=== PATIENT | male | born 1940 ===

== ENCOUNTER 2016-10-21 06:10 | Day surgery (SDC) | payer MEDICARE, OTHER ==
[2016-09-24 10:27] VITALS: BMI 21.9
[2016-10-21 06:46] LABS: BASO # 0.02 K/mm3 (0.0-2.0); BASO % 0.2 % (0.0-3.0); EOS # 0.7 (0.0-0.7); EOS % 7.2 % (1.5-5.0); GRAN # 6.48 (1.4-6.5); GRAN % 70.2 % (50.0-68.0); HEMATOCRIT 37.5 % (42.0-52.0); LYMPH # 1.3 (1.2-3.4); LYMPH % 13.5 % (22.0-35.0); MEAN CORPUSCULAR HGB CONC 32.5 g/dl (31.0-37.0); MEAN PLATELET VOLUME 9.7 fl (7.0-11.0); MONO # 0.8 (0.1-0.6); MONO % 8.9 % (1.0-6.0); RED CELL DISTRIBUTION WIDTH 15.3 % (11.5-14.5); WHITE BLOOD COUNT 9.2 10^3/ul (4.5-11.0)
[2016-10-21 06:50] LABS: CALCIUM 9.8 mg/dL (8.4-10.5); POTASSIUM 4.9 mmol/L (3.6-5.0)
[2016-10-21] MEDS ORDERED: Lidocaine 1% Inj (20ml) ONE (07:08)
[2016-10-21] MEDS ORDERED: Bupivacaine 0.5% Inj(30mL) ONE (07:08)
[2016-10-21 07:11] LABS: INR 0.99 (0.93-1.08); PARTIAL THROMBOPLASTIN TIME 27.3 Seconds (23.7-30.8)
[2016-10-21] MEDS ORDERED: Propofol 10 mg/ml Inj (20 ML) ONE (08:02)
[2016-10-21] MEDS ORDERED: Midazolam 2 MG/2 ML VIAL ONE (08:02)
[2016-10-21] MEDS ORDERED: ePHEDrine 50 mg/ml Inj ONE ×2 (08:26→09:52)
--- NOTE | 2016-10-21 10:20 | PCM.SURG1 ---
<Joshua Zarate - Last Filed: 10/21/16 10:18> Surgeon's Initial Post Op Note - Surgeon's Notes Surgeon: Dr. Miller Chief Order Dispatcher: Dr. Zarate PGY3, Student Doctor Carrie Type of Anesthesia: General LMA, Local Pre-Operative Diagnosis: ESRD Operative Findings: see op report Post-Operative Diagnosis: same Operation Performed: left arm arteriovenous fistula Specimen/Specimens Removed: none Estimated Blood Loss: EBL {In ML}: 10 Blood Products Given: N/A Drains Used: No Drains Post-Op Condition: Good Date of Surgery/Procedure: 10/21/16 Time of Surgery/Procedure: 10:19 <Eder Miller - Last Filed: 10/21/16 10:30> Surgeon's Initial Post Op Note - Surgeon's Notes Operation Performed: Left upper arm AV fistula creation by cephalic vein transposition. Left arm venous mapping
[2016-10-21] MEDS ORDERED: HYDROmorphone 0.5 mg/0.5 ml ISec IVP PRN ×2 (10:26→10:28)
[2016-10-21] MEDS ORDERED: Sodium Chloride 0.9% 1,000 ML IV SCH (10:30)
[2016-10-21 11:34] VITALS: PULSE 53
[2016-10-21 12:04] VITALS: BP 110/58; RESP 18; TEMP 98.3; O2SAT 99
--- NOTE | 2016-10-21 12:25 | OP ---
PROCEDURE DATE: 10/21/2016 PREOPERATIVE DIAGNOSIS: End stage renal disease. POSTOPERATIVE DIAGNOSIS: End stage renal disease. PROCEDURES PERFORMED: 1. Left upper arm arteriovenous fistula creation via the cephalic vein transposition to the brachial artery. 2. Left arm venous mapping. SURGEON: Eder Miller MD THREADING MACHINE FEEDER AUTOMATIC: Dr. Zarate. TYPE OF ANESTHESIA: General LMA anesthesia. ANESTHESIA ADMINISTERED BY: Dr. Gonzalez. ESTIMATED BLOOD LOSS: Minimal. SPECIMEN: None. INDICATIONS: The patient is a 75-year-old male with history of end stage renal disease currently on hemodialysis by the right subclavian tunneled catheter. The patient was seen in the office and scheduled for the creation of the AV fistula in order to have a permanent access. DESCRIPTION OF PROCEDURE: The patient was brought to the operating room and placed on operating table in a supine position. The patient was connected to EKG, blood pressure, and pulse oximetry monitors. The patient then underwent LMA anesthesia and was prepped and draped in the usual sterile fashion. First, a standard time-out procedure took place and everybody in the room agreed as to the patient's identity, diagnoses, and procedure to be performed. Using the venous Doppler careful mapping of the cephalic vein starting from the upper portion of the upper arm down to the wrist was performed. All the branches were marked and the sides were measured. The upper arm cephalic vein was about 3-4 mm in size and about 3.5 at the decubital fossa. The vessel progressively got smaller, as it was going down and it was about 2 mm at the wrist. Given the above findings, the side branches were marked starting from the antecubital fossa up. There were multiple small branches located just above the antecubital fossa and the vessel was running quite laterally, therefore, needed to be transposed in order to bring it up to the brachial artery. Once this was done, I then proceeded to surgery by first injecting lidocaine at the line of incision in the antecubital fossa. Carefully, the incision was made with #[id number] and advanced down to subcutaneous tissues. Keeping good hemostasis the cephalic vein was now exposed and carefully dissected out. All the side branches were ligated and once the vessel was freed from the surrounding tissue it was marked for orientation and then mobilized all the way to about mcc through its course in order to be able to bring it to the proximity of the brachial artery. Once this was done, I then proceeded with mobilization of the brachial artery. Carefully elevated it on to vessel loops and once it was freed the patient received 4000 units of heparin intravenously and about 2 minutes after that procedure of cross-clamping the brachial artery making longitudinal arteriotomy and proceed with end to side anastomosis between the transposed cephalic vein and branchial artery. Once the anastomosis was completed forward flow established we have good thrill through the created conduit. The wound was copiously irrigated. There was excellent hemostasis. The wound was then closed using 3-0 Vicryl for the deep dermal layer and 4-0 Monocryl for skin. Sterile Dermabond dressing was applied to the wound. The patient tolerated the procedure well and there were no complications. The patient was awakened and transferred to the recovery room for further observation. Eder Miller MD
== END 2016-10-21 12:20 | disposition home or self-care (01) ==
LOC: SDS 06:10
PROVIDERS: ATTEND General Practice
DX: I13.2 Hypertensive heart and chronic kidney disease with heart failure and with stage 5 chronic kidney disease, or end stage renal disease (principal); N18.6 End stage renal disease; I50.9 Heart failure, unspecified; E11.22 Type 2 diabetes mellitus with diabetic chronic kidney disease; C61 Malignant neoplasm of prostate; Z79.4 Long term (current) use of insulin; Z99.2 Dependence on renal dialysis
CPT/HCPCS: 36415; 36818; 80048; 82948; 85025; 85610; 85730; J0690; J1170; J1644 ×2; J2001; J2250; J2405; J2704; J3010; J7040

== ENCOUNTER 2017-04-29 16:44 | Emergency (ER) | payer MEDICARE, OTHER ==
[2017-04-29 16:45] VITALS: BMI 21.9
[2017-04-29 16:51] VITALS: BP 130/64; PULSE 90; RESP 18; TEMP 97.9; O2SAT 100
--- NOTE | 2017-04-29 17:07 | ED PDOC ---
Arrival/HPI - General Time Seen by Provider: 04/29/17 16:59 Historian: Patient - History of Present Illness Narrative History of Present Illness (Text): 04/29/17 17:02 76yo male with PMHx of hypertension, diabetes and ESRD on dialysis TTHS bib for evaluation s/p trauma. Patient states he lost his balance and fell, while trying to check his weight at a dialysis center post dialysis. States the weight machine wasn't working and he kept pressing it, felt slight dizzy and fell. He notes that he hit his neck on a sink. Denies focal weakness, dizziness , visual changes, neck pain, headache, LOC, back pain, any other complaint. Past Medical History - Provider Review Nursing Documentation Reviewed: Yes - Cardiac Hx Pacemaker: No - Neurological Hx Paralysis: No - Hematological/Oncological Hx Blood Transfusions: No Hx Blood Transfusion Reaction: No - Musculoskeletal/Rheumatological Hx Musculoskeletal Disorders: No - Psychiatric Hx Emotional Abuse: No Hx Physical Abuse: No Hx Substance Use: No - Anesthesia Hx Anesthesia Reactions: No Hx Malignant Hyperthermia: No - Suicidal Assessment Feels Threatened In Home Enviroment: No Family/Social History - Physician Review Nursing Documentation Reviewed: Yes Family/Social History: Unknown Family HX Hx Alcohol Use: Yes ([employer]) Hx Substance Use: No Allergies/Home Meds Allergies/Adverse Reactions: Allergies allopurinol Allergy (Severe, Verified 04/29/17 17:07) RASH Home Medications: Home Meds Medication Instructions Recorded Confirmed Atorvastatin [Lipitor] 20 mg PO QAM 03/31/13 10/21/16 Insulin Detemir [Levemir] 10 units SC HS 03/31/13 10/21/16 Verapamil [Verapamil HCl] 240 mg PO BID 03/31/13 10/21/16 cloNIDine 0.3 mg/24 hr 1 patch TD QWK 03/31/13 10/21/16 [catapres-TTS3 0.3 mg/24 hr] Aspirin [Adult Low Dose Aspirin EC] 81 mg PO DAILY 09/15/16 10/21/16 B Complex W-C No.20/Folic Acid 1 sgl PO QAM 09/15/16 10/21/16 [[place] Caps] Bumetanide [Bumex] 1 mg PO BID 09/15/16 10/21/16 Carvedilol [Coreg] 25 mg PO BID 09/15/16 10/21/16 Insulin Aspart, Recombinant 5 unit SQ WM 09/15/16 10/21/16 [Novolog] Terazosin HCl [Terazosin HCl] 2 mg PO QID 09/15/16 10/21/16 Calcium Acetate [Phoslo] 667 mg PO WM 09/24/16 10/21/16 Ultram 50 mg PO Q6H PRN 10/21/16 10/21/16 Review of Systems - Physician Review All systems were reviewed & negative as marked: Yes - Review of Systems Constitutional: Normal Eyes: Normal ENT: Normal Respiratory: Normal Cardiovascular: Normal Gastrointestinal: Normal Genitourinary Male: Normal Musculoskeletal: Normal, Other (Evaluation s/p trauma) Skin: Normal Neurological: Normal Endocrine: Normal Hemo/Lymphatic: Normal Psychiatric: Normal Physical Exam Vital Signs Reviewed: Yes Vital Signs Temp Pulse Resp BP Pulse Ox 04/29/17 16:50 97.9 F 90 18 130/64 100 Temperature: Afebrile Blood Pressure: Normal Pulse: Regular Respiratory Rate: Normal Appearance: Positive for: Well-Appearing, Non-Toxic, Comfortable Pain Distress: None Mental Status: Positive for: Alert and Oriented X 3 - Systems Exam Head: Present: Atraumatic, Normocephalic Pupils: Present: PERRL Extroacular Muscles: Present: EOMI Conjunctiva: Present: Normal Mouth: Present: Moist Mucous Membranes Neck: Present: Normal Range of Motion. No: MIDLINE TENDERNESS, Paraspinal Tenderness Respiratory/Chest: Present: Clear to Auscultation, Good Air Exchange. No: Respiratory Distress, Accessory Muscle Use Cardiovascular: Present: Regular Rate and Rhythm, Normal S1, S2. No: Murmurs Abdomen: Present: Normal Bowel Sounds. No: Tenderness, Distention, Peritoneal Signs Back: Present: Normal Inspection Upper Extremity: Present: Normal Inspection. No: Cyanosis, Edema Lower Extremity: Present: Normal Inspection. No: Edema Neurological: Present: GCS=15, CN II-XII Intact, Speech Normal Skin: Present: Warm, Dry, Normal Color. No: Rashes Psychiatric: Present: Alert, Oriented x 3, Normal Insight, Normal Concentration Medical Decision Making ED Course and Treatment: 04/29/17 17:55 Pt presented for stated history. he was neurologically stable and denied any pain in ED. He as ambulatory , AAO x3 in ED. He declined Head CT in ED. states he feels fine and want to go home. He expressed understanding of the risk of internal head derangement and still insisted on signing out AMA. He understood that he can return to ED at anytime he changes his time. Advised to f/u with his PMD. - RAD Interpretation Radiology Orders: 04/29/17 17:09 HEAD W/O CONTRAST [CT] Stat Disposition/Present on Arrival - Present on Arrival Any Indicators Present on Arrival: No History of DVT/PE: No History of Uncontrolled Diabetes: No Urinary Catheter: No History of Decub. Ulcer: No - Disposition Have Diagnosis and Disposition been Completed?: No Diagnosis: Head injury Disposition: AGAINST MEDICAL ADVICE Disposition Time: 17:40 Condition: STABLE
== END 2017-04-29 17:37 | disposition left against medical advice (07) ==
LOC: ED 16:44
DX: S09.90XA Unspecified injury of head, initial encounter (principal); W01.0XXA Fall on same level from slipping, tripping and stumbling without subsequent striking against object, initial encounter; I12.0 Hypertensive chronic kidney disease with stage 5 chronic kidney disease or end stage renal disease; N18.6 End stage renal disease; Z99.2 Dependence on renal dialysis; E11.9 Type 2 diabetes mellitus without complications

== ENCOUNTER 2017-10-19 09:28 | Day surgery (SDC) | payer MEDICARE, OTHER ==
[2017-10-18 15:10] VITALS: BMI 21.2
[2017-10-19 10:12] LABS: BASO # 0.02 K/mm3 (0.0-2.0); BASO % 0.2 % (0.0-3.0); EOS # 0.8 (0.0-0.7); EOS % 8.3 % (1.5-5.0); GRAN # 6.68 (1.4-6.5); HEMOGLOBIN 9.2 g/dL (14.0-18.0); LYMPH # 1.4 (1.2-3.4); LYMPH % 15.1 % (22.0-35.0); MEAN CELL VOLUME 92.3 fl (80.0-105.0); MEAN CORPUSCULAR HEMOGLOBIN 29.6 pg (25.0-35.0); MEAN CORPUSCULAR HGB CONC 32.1 g/dl (31.0-37.0); MEAN PLATELET VOLUME 10.2 fl (7.0-11.0); MONO # 0.4 (0.1-0.6); MONO % 4.4 % (1.0-6.0); RBC 3.11 10^6/uL (3.5-6.1); WHITE BLOOD COUNT 9.3 10^3/ul (4.5-11.0)
[2017-10-19 10:17] LABS: INR 0.97; PARTIAL THROMBOPLASTIN TIME 29.8 Seconds (25.1-36.5); PROTHROMBIN TIME 11.1 SECONDS (9.4-12.5)
[2017-10-19] MEDS ORDERED: Lidocaine PF 2% (5 ml) Inj (For Cardiac Arrhy) ONE ×2 (10:23→10:52)
[2017-10-19] MEDS ORDERED: Iodixanol 320 mg/ml 150 ml Bottle IV ONE (10:25)
[2017-10-19 10:34] LABS: CALCIUM 8.9 mg/dL (8.4-10.5)
[2017-10-19] MEDS ORDERED: Nitroglycerin 50mg in D5W 50 MG/250 ML BOTTLE IV ONE (10:52)
[2017-10-19] MEDS ORDERED: Midazolam 2 MG/2 ML VIAL ONE (11:14)
[2017-10-19] MEDS ORDERED: Oxycodone/Acetaminophen 5/325 mg Tab PO PRN (12:00)
[2017-10-19 12:47] VITALS: RESP 18; TEMP 97.9; O2SAT 98
--- NOTE | 2017-10-19 13:27 | VASCULAR ---
PROCEDURE: 1. Left upper extremity AV fistula angiogram 2. Perianastomotic venous angioplasty HISTORY: End-stage renal disease. Malfunctioning AV access PHYSICIAN(S): Ruiz Cobb MD. TECHNIQUE: The relative risks and indications of the procedure were explained to the patient and his and consent obtained. The patient was placed supine on the angiography table and the left arm prepped and draped in usual sterile fashion. Conscious sedation and monitoring provided throughout the procedure by a nurse. Under ultrasound guidance, the left brachial-cephalic fistula was punctured at the anastomosis with a micropuncture set. 5 [place]ian catheter was placed. An overlapping left upper extremity AV fistula angiogram was performed. Pressure was applied to the fistula and reflux of the anastomosis performed. Exchange is made for 6 [place]ian sheath. 0.018 guidewire was placed centrally. The perianastomotic region was dilated with a 6 mm balloon. An improved appearance was noted angiographically with a good thrill The sheath was removed hemostasis obtained with a purse string suture FINDINGS: The anastomosis is patent on ultrasound imaging. The perianastomotic vein is small in caliber, measuring 3-4 mm. The cephalic vein is continuous and normal in appearance. Central veins are patent. There is some mass-effect on the left innominate vein by the ectatic aortic arch. IMPRESSION: 1. Perianastomotic angioplasty with a 6 mm balloon 2. Patent venous outflow. There is some mass effect on the left innominate vein by the ectatic aortic arch, but this was not addressed at this time
[2017-10-19 13:58] VITALS: BP 118/76; PULSE 62
== END 2017-10-19 13:50 | disposition home or self-care (01) ==
LOC: SDSVAS 09:28
PROVIDERS: ATTEND Radiology Vascular & Interventional Radiology
DX: T82.318A Breakdown (mechanical) of other vascular grafts, initial encounter (principal); I12.0 Hypertensive chronic kidney disease with stage 5 chronic kidney disease or end stage renal disease; N18.6 End stage renal disease; Z88.1 Allergy status to other antibiotic agents; Z88.8 Allergy status to other drugs, medicaments and biological substances
CPT/HCPCS: 36415; 36902; 80048; 85025; 85610; 85730; 99152; C1725; C1760; C1769 ×2; C1894; J0360; J1644; J2250; J2405; J3010; Q9967

== ENCOUNTER 2018-04-12 12:03 | Inpatient (IN) | payer MEDICARE, OTHER ==
[2018-04-12 12:05] VITALS: BMI 20.7
--- NOTE | 2018-04-12 12:24 | ED PDOC ---
Arrival/HPI - General Chief Complaint: Weakness/Neurological Deficit Time Seen by Provider: 04/12/18 12:10 Historian: Patient - History of Present Illness Narrative History of Present Illness (Text): 04/12/18 12:21 77 year old male, with past medical history of hypertension, diabetes and ESRD on hemodialysis (Wed/Wed/Wed), presents to the ED for evaluation of chest congestion, shortness of breath, and productive cough since 1 week. Patient informs worsening symptoms since onset developing greenish sputum with cough. Patient additionally informs bilateral lower extremity weakness but denies any numbness/tingling. Patient denies any other associated somatic complaints. Patient denies any fevers, chills, headache, dizziness, chest pain, abdominal pain, nausea, vomiting, diarrhea, back pain, neck pain, or any other complaints. Patient states his last dialysis was Wednesday and did not receive dialysis today. PMD: Dr. Oconnell Time/Duration: 1 week Symptom Onset: Gradual Symptom Course: Unchanged Activities at Onset: Light Context: Home Past Medical History - Provider Review Nursing Documentation Reviewed: Yes - Infectious Disease Hx of Infectious Diseases: None - Cardiac Hx Cardiac Disorders: Yes Hx Hypertension: Yes - Pulmonary Hx Respiratory Disorders: No - Neurological Hx Neurological Disorder: No - HEENT Hx HEENT Disorder: No - Renal Hx Renal Disorder: Yes Hx Dialysis: Yes (//Wed) Type of Dialysis Access: Left Upper Arm AV Shunt - Endocrine/Metabolic Hx Endocrine Disorders: Yes Hx Diabetes Mellitus Type 2: Yes - Hematological/Oncological Hx Blood Disorders: Yes Hx Blood Transfusions: Yes Hx Blood Transfusion Reaction: No - Integumentary Hx Dermatological Disorder: No - Musculoskeletal/Rheumatological Hx Musculoskeletal Disorders: No - Gastrointestinal Hx Gastrointestinal Disorders: No - Genitourinary/Gynecological Hx Genitourinary Disorders: No - Psychiatric Hx Psychophysiologic Disorder: No Hx Substance Use: No - Surgical History Hx Orthopedic Surgery: Yes - Anesthesia Hx Anesthesia Reactions: No Hx Malignant Hyperthermia: No - Suicidal Assessment Feels Threatened In Home Enviroment: No Family/Social History - Physician Review Nursing Documentation Reviewed: Yes Family/Social History: No Known Family HX Smoking Status: Never Smoked Hx Alcohol Use: Yes Hx Substance Use: No Allergies/Home Meds Allergies/Adverse Reactions: Allergies allopurinol Allergy (Severe, Verified 04/12/18 12:12) RASH ciprofloxacin [From Cipro] Allergy (Severe, Verified 04/12/18 12:12) RASH SKIN BREAKS OUT AND PEELS Home Medications: Home Meds Medication Instructions Recorded Confirmed Insulin Detemir [Levemir] 10 units SC HS 03/31/13 10/19/17 cloNIDine 0.3 mg/24 hr 1 patch TD QWK 03/31/13 10/19/17 [catapres-TTS3 0.3 mg/24 hr] Aspirin [Adult Low Dose Aspirin EC] 81 mg PO DAILY 09/15/16 10/19/17 Carvedilol [Coreg] 25 mg PO BID 09/15/16 10/19/17 Insulin Aspart, Recombinant 15 unit SQ ACTID 09/15/16 10/19/17 [Novolog] Atorvastatin [Lipitor] 20 mg PO DAILY 10/18/17 10/19/17 B Complex W-C No.20/Folic Acid 1 mg PO DAILY 10/18/17 10/19/17 [[place] Caps Softgel] Multivitamin/Iron/Folic Acid 1 tab PO DAILY 10/18/17 10/19/17 [Centrum Adults Tablet] Sevelamer Carbonate [Renvela] 800 mg PO TID 10/18/17 10/19/17 Terazosin [Hytrin] 2 mg PO DAILY 10/18/17 10/19/17 Torsemide [Demadex] 50 mg PO DAILY 10/18/17 10/19/17 Verapamil [Verapamil HCl] 40 mg PO BID 10/19/17 10/19/17 Review of Systems - Physician Review All systems were reviewed & negative as marked: Yes - Review of Systems Constitutional: absent: Fevers Respiratory: SOB, Cough, Sputum Cardiovascular: absent: Chest Pain, PAGE Gastrointestinal: absent: Abdominal Pain, Diarrhea, Nausea, Vomiting Genitourinary Male: absent: Dysuria, Urinary Output Changes Musculoskeletal: absent: Back Pain, Neck Pain Skin: absent: Rash Neurological: absent: Headache, Dizziness Psychiatric: absent: Anxiety Physical Exam - Physical Exam Narrative Physical Exam (Text): 04/12/18 12:24 Gen: VS reviewed, alert, well developed, well nourished, nontoxic, mild distress. ENT: normal pharynx. Eye: EOMI, PERRL. Neck: JVD, supple, no adenopathy. CV: regular rate, regular rhythm, no rubs, no murmur, no gallops, S1, S2, pulses equal and strong. Pulm: no distress, rhonchi bilaterally full lung carrion, mildly tachypneic, no accessory muscle use Abd: soft, nontender, no guarding, no rebound, no rigidity, normal bowel sounds. Ext: no edema. Positive thrill left upper extremity. Skin: good color, no rash, no cyanosis. Psych: responds appropriately to questions, normal affect. Neuro: oriented x 3, CN2-12 intact grossly, motor intact, sensation intact. Vital Signs Reviewed: Yes Vital Signs Temp Pulse Resp BP Pulse Ox 04/12/18 12:06 98.0 F 81 16 191/104 H 90 L Temperature: Afebrile Blood Pressure: Hypertensive Pulse: Regular Respiratory Rate: Normal Appearance: Positive for: Well-Appearing, Non-Toxic, Comfortable Pain Distress: Mild Mental Status: Positive for: Alert and Oriented X 3 Medical Decision Making ED Course and Treatment: 04/12/18 12:19 Impression: 77 year old male presents to the ED for evaluation of chest congestion, shortness of breath and productive cough. Plan: -- VBG -- EKG -- Labs -- Chest X-ray -- Blood Culture -- Reassess and disposition Prior Visits: Notes and results from previous visits were reviewed. Progress Notes: 04/12/18 13:23 case discussed with carlyn dan covering with dr. oconnell, accepts admission, patient to be admitted for hcp, iv abx, hyperkalemia, will likely require HD today. there is no respiratory distress or sig hypoxemia to warrant icu at this time. will admit to tele. 04/12/18 13:[address] oconnell, defers admit to ventilation worker, error from previous discussion with Nickie. 04/12/18 13:[address] bravo to the hospitalist service. - RAD Interpretation Narrative RAD Interpretations (Text): 04/12/18 13:37 IMPRESSION: Bilateral infiltrates, right greater than left. Possible bilateral pneumonia versus pulmonary edema.. Follow-up advised. Radiology Orders: 04/12/18 12:19 CHEST PORTABLE [RAD] Stat Skin Fitter: Radiologist - EKG Interpretation EKG Interpretation (Text): 04/12/18 12:58 1224: sinus rhythm at 81 bpm, first degree av block, nonspecific intraventricular conduction delay, nml axis, prolonged QT Interpreted by ED Physician: Yes - Scribe Statement The provider has reviewed the documentation as recorded by the Scribe Carlos Woods. All medical record entries made by the Scribe were at my direction and personally dictated by me. I have reviewed the chart and agree that the record accurately reflects my personal performance of the history, physical exam, medical decision making, and the department course for this patient. I have also personally directed, reviewed, and agree with the discharge instructions and disposition. Disposition/Present on Arrival - Present on Arrival Any Indicators Present on Arrival: No History of DVT/PE: No History of Uncontrolled Diabetes: No Urinary Catheter: No History of Decub. Ulcer: No History Surgical Site Infection Following: None - Disposition Have Diagnosis and Disposition been Completed?: Yes Diagnosis: Pneumonia Disposition: HOSPITALIZED Disposition Time: 13:24 Patient Plan: Admission Patient Problems: Current Active Problems Problem Status Onset Pneumonia Acute Condition: GUARDED Forms: [employer] (Iranian)
[2018-04-12 12:42] LABS: BASO # 0.01 K/mm3 (0.0-2.0); BASO % 0.1 % (0.0-3.0); EOS % 0.1 % (1.5-5.0); HEMOGLOBIN 10.6 g/dL (14.0-18.0); LYMPH # 1.1 (1.2-3.4); LYMPH % 9.3 % (22.0-35.0); MEAN CELL VOLUME 91.2 fl (80.0-105.0); MEAN CORPUSCULAR HEMOGLOBIN 28.3 pg (25.0-35.0); MEAN CORPUSCULAR HGB CONC 31.1 g/dl (31.0-37.0); MEAN PLATELET VOLUME 10.3 fl (7.0-11.0); MONO # 0.6 (0.1-0.6); MONO % 5.2 % (1.0-6.0); RBC 3.74 10^6/uL (3.5-6.1); RED CELL DISTRIBUTION WIDTH 15.2 % (11.5-14.5); WHITE BLOOD COUNT 12.2 10^3/uL (4.5-11.0)
[2018-04-12 12:49] LABS: VENOUS BLOOD GAS BASE EXCESS -4.5 mmol/L (0.0-2.0); VENOUS BLOOD GAS PO2 69 mm/Hg (30-55); VENOUS BLOOD PH 7.36 (7.32-7.43)
[2018-04-12 12:59] LABS: ALB/GLOB RATIO 1.4 (1.1-1.8); ALBUMIN 4.4 g/dL (3.0-4.8); CALCIUM 8.6 mg/dL (8.4-10.5); TROPONIN I 0.05 ng/mL
[2018-04-12] MEDS ORDERED: Insulin Regular 1 UNITS/0.01 ML ML IVP STA (13:02)
[2018-04-12] MEDS ORDERED: Vancomycin 500 mg Inj IVPB STA (13:12)
[2018-04-12] MEDS ORDERED: Cefepime 1gm in NS 100ml 1 GM/100 ML BAG IVPB ONE (13:13)
[2018-04-12] MEDS ORDERED: Calcium Gluconate in NS 1 GM/50 ML BAG IV ONE (13:15)
[2018-04-12] MEDS ORDERED: Vancomycin 1gm in NS 250ml 1 GM/250 ML BAG IVPB STA (13:20)
--- NOTE | 2018-04-12 13:33 | RAD ---
Date of service: 04/12/2018 HISTORY: dyspnea, CHF COMPARISON: 09/15/2016 FINDINGS: LUNGS: Extensive right basilar opacity. Possible pneumonia. Patchy abnormal opacity mid and lower left lung. Follow-up advised. PLEURA: No significant pleural effusion identified, no pneumothorax apparent. CARDIOVASCULAR: There is atherosclerotic calcification of the thoracic aortic arch. Normal cardiac size. No pulmonary vascular congestion. OSSEOUS STRUCTURES: No significant abnormalities. VISUALIZED UPPER ABDOMEN: Normal. OTHER FINDINGS: None. IMPRESSION: Bilateral infiltrates, right greater than left. Possible bilateral pneumonia versus pulmonary edema.. Follow-up advised.
[2018-04-12] MEDS ORDERED: Insulin Regular 100 UNITS in Sodium Chloride 0.9% 99 ML IV PRN (14:26)
--- NOTE | 2018-04-12 14:36 | CP.PCM.CON ---
<VikasKavin - Last Filed: 04/12/18 15:46> History of Present Illness - History of Present Illness History of Present Illness: Nephrology consult note: Vikas PGY - 2 Reason for consult: ESRD on HD, needs HD today 77 M with pertinent history of ESRD on HD (//Wed), DM2 (last A1c 7.9%), and HTN [place] [facility] [place] with a complaint of worsening chest congestion and cough productive of yellow sputum for the past week, with cough and congestion worse when he is lying down. The dyspnea is worse with exertion and improves with rest. He also complains of worsening b/l leg cramping and had an episode of weakness on his way to dialysis this AM. Per the , she was giving the patient lots of fluids including water and tea for his cough. His last HD was on Wednesday. Review of Systems: 12 point ROS obtained and negative except as per HPI Surgical Hx: AVF placement; Radiation for prostate CA Medical Hx: ESRD (//Wed dialysis), DM2 (last A1c 7.9%), HTN, and prostate CA (s/p radiation) Allergies: Allopurinol, Ciprofloxacin Social Hx: +Tobacco, quit in the 70s. +Social alcohol in past. Denies illicits; lives with , +IADL's Home meds: Clonidine .3 qwk; Verapamil 40 BID; Torsemide 50 qD; Renvela 800 TID; Levemir 10 HS; Aspart 15 ACTID, Coreg 25 BID, Lipitor 20, ASA 81 Family Hx: HTN PMD: Mughni Past Patient History - Infectious Disease Hx of Infectious Diseases: None - Past Social History Smoking Status: Never Smoked - CARDIAC Hx Cardiac Disorders: Yes Hx Hypertension: Yes - PULMONARY Hx Respiratory Disorders: No - NEUROLOGICAL Hx Neurological Disorder: No - HEENT Hx HEENT Problems: No - RENAL Hx Chronic Kidney Disease: Yes Hx Dialysis: Yes (//Wed) Type of Dialysis Access: Left Upper Arm AV Shunt - ENDOCRINE/METABOLIC Hx Endocrine Disorders: Yes Hx Diabetes Mellitus Type 2: Yes - HEMATOLOGICAL/ONCOLOGICAL Hx Blood Disorders: Yes Hx Blood Transfusions: Yes Hx Blood Transfusion Reaction: No - INTEGUMENTARY Hx Dermatological Problems: No - MUSCULOSKELETAL/RHEUMATOLOGICAL Hx Musculoskeletal Disorders: No - GASTROINTESTINAL Hx Gastrointestinal Disorders: No - GENITOURINARY/GYNECOLOGICAL Hx Genitourinary Disorders: No - PSYCHIATRIC Hx Psychophysiologic Disorder: No Hx Substance Use: No - SURGICAL HISTORY Hx Orthopedic Surgery: Yes - ANESTHESIA Hx Anesthesia Reactions: No Hx Malignant Hyperthermia: No Meds Allergies/Adverse Reactions: Allergies Allergy/AdvReac Type Severity Reaction Status Date / Time allopurinol Allergy Severe RASH Verified 04/12/18 20:00 ciprofloxacin [From Cipro] Allergy Severe RASH Verified 04/12/18 20:00 - Medications Medications: Current Medications Vancomycin HCl (Vancomycin 1gm) 1 gm in 250 mls @ 167 mls/hr IVPB STAT STA Stop: 04/12/18 14:49 Last Admin: 04/12/18 13:51 Dose: 167 mls/hr Physical Exam - Constitutional Appears: Well, Non-toxic - Head Exam Head Exam: ATRAUMATIC, NORMAL INSPECTION, NORMOCEPHALIC - Eye Exam Eye Exam: EOMI, Normal appearance, PERRL Pupil Exam: NORMAL ACCOMODATION, PERRL - ENT Exam ENT Exam: Mucous Membranes Moist, Normal Exam - Neck Exam Neck exam: Positive for: Normal Inspection - Respiratory Exam Respiratory Exam: Rales (Bilateral rales), NORMAL BREATHING PATTERN. absent: Accessory Muscle Use, Chest Wall Tenderness, Respiratory Distress - Cardiovascular Exam Cardiovascular Exam: REGULAR RHYTHM - GI/Abdominal Exam GI & Abdominal Exam: Normal Bowel Sounds, Soft. absent: Tenderness - Extremities Exam Additional comments: b/l LE 2+ pitting edema - Back Exam Back exam: NORMAL INSPECTION - Neurological Exam Neurological exam: Alert, CN II-XII Intact, Normal Gait, Oriented x3, Reflexes Normal - Psychiatric Exam Psychiatric exam: Normal Affect, Normal Mood - Skin Skin Exam: Dry, Intact, Normal Color, Warm Results - Vital Signs Recent Vital Signs: Last Vital Signs Temp 98.0 F 04/12/18 12:06 Pulse 81 04/12/18 12:06 Resp 16 04/12/18 12:06 BP 191/104 H 04/12/18 12:06 Pulse Ox 90 L 04/12/18 12:06 - Labs Result Diagrams: 04/12/18 12:00 04/12/18 12:00 Labs: Laboratory Results - last 24 hr 04/12/18 04/12/18 04/12/18 12:00 12:00 12:30 WBC 12.2 H RBC 3.74 Hgb 10.6 L Hct 34.1 L MCV 91.2 MCH 28.3 MCHC 31.1 RDW 15.2 H Plt Count 195 MPV 10.3 Neut % (Auto) 85.3 H Lymph % (Auto) 9.3 L [place] % (Auto) 5.2 Eos % (Auto) 0.1 L Baso % (Auto) 0.1 Lymph # (Auto) 1.1 L [place] # (Auto) 0.6 Eos # (Auto) 0.0 Baso # (Auto) 0.01 Absolute Neuts (auto) 10.41 H pO2 69 H VBG pH 7.36 VBG pCO2 36.0 L VBG HCO3 20.3 L VBG Total CO2 21.4 L VBG Base Excess -4.5 L VBG Potassium 6.2 H* Glucose 485 H* Lactate 5.4 H* FiO2 21.0 Crit Value Called To barry Alves Crit Value Called By [facility] utility service worker Blood Gas Notified Time 1248 Sodium 131 L 129.0 L Potassium 6.2 H* D Chloride 91 L 93.0 L Carbon Dioxide 20 L Anion Gap 27 H BUN 83 H Creatinine 10.0 H* Est GFR ( Amer) 6 Est GFR (Non-Af Amer) 5 Random Glucose 441 H* D Calcium 8.6 Phosphorus 6.6 H Magnesium 2.8 H Total Bilirubin 0.4 AST 144 H ALT 171 H Alkaline Phosphatase 145 H Troponin I 0.05 Total Protein 7.6 Albumin 4.4 Globulin 3.2 Albumin/Globulin Ratio 1.4 Venous Blood Potassium 6.2 H* Assessment & Plan - Assessment and Plan (Free Text) Assessment: 77 M with pertinent history of ESRD on HD (/), DM2 (last A1c 7.9%), and HTN [place] [facility] [place] with a complaint of worsening chest congestion and cough productive of yellow sputum for the past week; nephro consulted for HD, today is his regular day. Plan On exam, patient has bilateral lower extremity edema. Lung exam significant for bilateral crackles. Labs show leukocytosis of 12.2, anion gap of 20 and hyperglycemia of > 400, and ABG reveals HCO3 of 20, CO2 of 36 (indicating metabo lic acidosis with adequate compensation according to winter's formula), lactic acidosis of 5.4 and normal pH. On CXR, patient has bilateral pulmonary infiltrates. Bilateral pulmonary effusion/infiltrate - HD today - Continue with Torsemide - Vanc/Cefepime Chronic Compensated HAGMA - Continue with HD - Monitor lactic acidosis Hyperglycemia - RISS medium with ACHS FS - Continue to monitor ESRD on HD - Continue with Renvela, Sensipar, [place] caps - Continue with Torsemide 50 HTN - Continue with Coreg, Terazosin, Clonidine, IIDM 2 - RISS medium - FS ACHS <Elio Oconnell - Last Filed: 04/13/18 06:23> Meds - Medications Medications: Current Medications Acetaminophen (Tylenol 325mg Tab) 650 mg PO Q6H PRN PRN Reason: Pain, moderate (4-7) Aspirin (Ecotrin) 81 mg PO DAILY [facility] Atorvastatin Calcium (Lipitor) 20 mg PO DAILY [facility] Carvedilol (Coreg) 25 mg PO BID [facility] Last Admin: 04/12/18 22:17 Dose: 25 mg Cinacalcet (Sensipar) 60 mg PO BID [facility] Last Admin: 04/12/18 22:17 Dose: 60 mg Clonidine HCl (Catapres-Tts3 0.3 Mg/24 Hr) 1 patch TD Q7D@1000 [facility] Last Admin: 04/12/18 22:39 Dose: 1 patch Heparin Sodium (Porcine) (Heparin) 5,000 units SC Q8 [facility]; Protocol Last Admin: 04/13/18 05:30 Dose: 5,000 units Hydralazine HCl (Apresoline) 10 mg IVP Q6H PRN PRN Reason: Systolic Blood Pressure Insulin Detemir (Levemir) 8 unit SC HS [facility] Last Admin: 04/12/18 22:40 Dose: 8 units Insulin Human Lispro (Humalog Med) 0 units SC [facility]; Protocol Last Admin: 04/12/18 21:35 Dose: Not Given Losartan Potassium (Cozaar) 100 mg PO DAILY [facility] Last Admin: 04/12/18 22:16 Dose: 100 mg Terazosin [Hytrin] 4 (Mg (Home Med)) 4 mg PO BID [facility] Pantoprazole Sodium (Protonix Ec Tab) 40 mg PO 0600 [facility] Last Admin: 04/13/18 05:31 Dose: 40 mg Sevelamer HCl (Renagel) 800 mg PO [facility] Last Admin: 04/12/18 22:17 Dose: 800 mg Vitamin B Complex/Vit C/Folic Acid (Nephro-Pamela) 1 tab PO DAILY [facility] Results - Vital Signs Recent Vital Signs: Last Vital Signs Temp 98.6 F 04/13/18 05:45 Pulse 84 04/13/18 05:45 Resp 20 04/13/18 05:45 BP 139/80 04/13/18 05:45 Pulse Ox 98 04/13/18 05:45 - Labs Result Diagrams: 04/12/18 12:00 04/12/18 12:00 Labs: Laboratory Results - last 24 hr 04/12/18 04/12/18 04/12/18 12:00 12:00 12:30 WBC 12.2 H RBC 3.74 Hgb 10.6 L Hct 34.1 L MCV 91.2 MCH 28.3 MCHC 31.1 RDW 15.2 H Plt Count 195 MPV 10.3 Neut % (Auto) 85.3 H Lymph % (Auto) 9.3 L [place] % (Auto) 5.2 Eos % (Auto) 0.1 L Baso % (Auto) 0.1 Lymph # (Auto) 1.1 L [place] # (Auto) 0.6 Eos # (Auto) 0.0 Baso # (Auto) 0.01 Absolute Neuts (auto) 10.41 H pO2 69 H VBG pH 7.36 VBG pCO2 36.0 L VBG HCO3 20.3 L VBG Total CO2 21.4 L VBG O2 Sat (Calc) TEST NOT PERFORMED VBG Base Excess -4.5 L VBG Potassium 6.2 H* Glucose 485 H* Lactate 5.4 H* FiO2 21.0 Crit Value Called To barry Alves Crit Value Called By [facility] utility service worker Blood Gas Notified Time 1248 Sodium 131 L 129.0 L Potassium 6.2 H* D Chloride 91 L 93.0 L Carbon Dioxide 20 L Anion Gap 27 H BUN 83 H Creatinine 10.0 H* Est GFR ( Amer) 6 Est GFR (Non-Af Amer) 5 POC Glucose (mg/dL) Random Glucose 441 H* D Calcium 8.6 Phosphorus 6.6 H Magnesium 2.8 H Total Bilirubin 0.4 AST 144 H ALT 171 H Alkaline Phosphatase 145 H Troponin I 0.05 Total Protein 7.6 Albumin 4.4 Globulin 3.2 Albumin/Globulin Ratio 1.4 Procalcitonin Venous Blood Potassium 6.2 H* 04/12/18 04/12/18 04/12/18 15:20 19:20 21:09 WBC RBC Hgb Hct MCV MCH MCHC RDW Plt Count MPV Neut % (Auto) Lymph % (Auto) [place] % (Auto) Eos % (Auto) Baso % (Auto) Lymph # (Auto) [place] # (Auto) Eos # (Auto) Baso # (Auto) Absolute Neuts (auto) pO2 29 L VBG pH 7.45 H VBG pCO2 42.0 VBG HCO3 29.2 H VBG Total CO2 30.5 H VBG O2 Sat (Calc) 62.5 VBG Base Excess 4.7 H VBG Potassium 4.7 Glucose 179 H Lactate 2.5 H FiO2 21.0 Crit Value Called To Britt curtis Crit Value Called By Atc Blood Gas Notified Time 1939 Sodium 135.0 Potassium Chloride 94.0 L Carbon Dioxide Anion Gap BUN Creatinine Est GFR ( Amer) Est GFR (Non-Af Amer) POC Glucose (mg/dL) 228 H Random Glucose Calcium Phosphorus Magnesium Total Bilirubin AST ALT Alkaline Phosphatase Troponin I Total Protein Albumin Globulin Albumin/Globulin Ratio Procalcitonin 3.63 H Venous Blood Potassium 4.7 Attending/Attestation - Attestation I have personally seen and examined this patient.: Yes I have fully participated in the care of the patient.: Yes I have reviewed all pertinent clinical information: Yes Notes (Text): Patient seen and examined; I agree with the resident's note as above with the following additions/edits: 77 yo M w/ pmh of htn, dm, and ESRD on HD (TTS, at [facility], under our o utpatient service), presented for routine HD treatment but found to be very weak and had [employer] called prior to initiating treatment; reports weakness since past 2 days, with associated cough and shortness of breath, worse today; also with leg cramps; denies any GI losses; Found to be severely hypertensive with SBP ~200 but didn't take any of his anti- htn agents today and typically has SBP readings in 180's prior to HD; CXR reviewed, has possible bilateral infiltrates although no definite pulmonary vascular congestion; profound lactic acidosis suggestive of sepsis but hypoperfusion unlikely with patient being hypertensive as above; high lactate and renal failure accounts for moderate increased anion gap metabolic acidosis; moderate hyperkalemia, higher than expected for patient on chronic HD; Patient dialyzed today with 3L UF, BP still high just after treatment but with improved respiratory status; Anemia of CKD with Hgb at goal, with continue with long acting EPO as outpatient; CKD mineral bone disorder with elevated phos; continue with sevelamer 3 tabs with meals; -Restarting all home BP meds; -Agree with empiric broad spectrum antibiotics for PNA; re-dosing vanco 500 mg after HD this evening; dose other antibiotics for HD; -Restarting home dose of levemir 8 u qhs; -Obtaining echo to assess LV function (previously normal);
--- NOTE | 2018-04-12 14:49 | CP.PCM.HP ---
<Luke Guzmán - Last Filed: 04/12/18 15:48> History of Present Illness - History of Present Illness History of Present Illness: Luke Guzmán DO, PGY-1 Hospitalist Admission History and Physical for Dr. Giancarlo Strickland CC: SOB, b/l leg weakness HPI: Kevin is a pleasant 77 year old male with PMH of ESRD (T/Th/Sat dialysis), DM2 (last A1c 7.9%), HTN, and prostate CA (s/p radiation) who presented to ED this AM with a complaint of worsening chest congestion and cough productive of y ellow sputum for the past week. Over the past day he has also developed worsening SOB. He states that the cough and congestion feel worse when he is lying down. The dyspnea is worse with exertion and improves with rest. He also complains of worsening b/l leg cramping and had an episode of weakness on his way to dialysis this AM. His was unable to assist him getting to dialysis and he had to sit down in the snow, prompting his evaluation in ED. Patient was seen and examined in inpatient dialysis unit. Currently, he states his SOB is improving but he has not attempted to move again. He denies fever, CP, nausea/vomiting/abdominal pain, sensory changes, changes in vision, DALY, or urinary complaints. PMD: Mughni Past Medical Hx: ESRD (T/Th/Sat dialysis), DM2 (last A1c 7.9%), HTN, and pros smith CA (s/p radiation) Past Surgical Hx: AV fistula placement for dialysis Allergies: allopurinol, ciprofloxacin Home medications: Cinacalcet 60 mg BID, Lipitor 20 mg daily, ASA 81 mg daily, Levemir 8 u HS, Novolog 5 u AC, Coreg 25 mg BID, B-complex 1 mg daily, Terazosin 4 mg BID, Sevelamer 800 mg TID w/meals, Torsemide 50 mg BID, Clonidine 0.3 mg/24hr TD patch weekly Family Hx: mother and father both had HTN Social Hx: Admits to prior ciagrette smoking for 5 years but quit in the 70s. Reports prior social alcohol use but has not drunk for > 5 years. Denies other illicit drug use. Currently lives with his and is normally ambulatory and independent with ADLs. Pharmacy: [facility] in [place] Present on Admission - Present on Admission Any Indicators Present on Admission: No History of DVT/PE: No History of Uncontrolled Diabetes: No Urinary Catheter: No Decubitus Ulcer Present: No Review of Systems - Constitutional Constitutional: Chills. absent: Fever, Headache, Night Sweats - EENT Eyes: absent: Change in Vision - Cardiovascular Cardiovascular: Dyspnea on Exertion. absent: Chest Pain, Chest Pain with Activity, Diaphoresis, Pain Radiating to Arm/Neck/Jaw, Lightheadedness, Palpitations, Syncope - Respiratory Respiratory: Cough, Dyspnea, Dyspnea on Exertion, Chest Congestion, Pain with Coughing - Gastrointestinal Gastrointestinal: absent: Abdominal Pain, Nausea, Vomiting - Genitourinary Genitourinary: absent: Change in Urinary Stream, Dysuria - Neurological Neurological: absent: Headaches Past Patient History - Infectious Disease Hx of Infectious Diseases: None - Past Social History Smoking Status: Never Smoked - CARDIAC Hx Cardiac Disorders: Yes Hx Hypertension: Yes - PULMONARY Hx Respiratory Disorders: No - NEUROLOGICAL Hx Neurological Disorder: No - HEENT Hx HEENT Problems: No - RENAL Hx Chronic Kidney Disease: Yes Hx Dialysis: Yes (//Wed) Type of Dialysis Access: Left Upper Arm AV Shunt - ENDOCRINE/METABOLIC Hx Endocrine Disorders: Yes Hx Diabetes Mellitus Type 2: Yes - HEMATOLOGICAL/ONCOLOGICAL Hx Blood Disorders: Yes Hx Blood Transfusions: Yes Hx Blood Transfusion Reaction: No - INTEGUMENTARY Hx Dermatological Problems: No - MUSCULOSKELETAL/RHEUMATOLOGICAL Hx Musculoskeletal Disorders: No - GASTROINTESTINAL Hx Gastrointestinal Disorders: No - GENITOURINARY/GYNECOLOGICAL Hx Genitourinary Disorders: No - PSYCHIATRIC Hx Psychophysiologic Disorder: No Hx Substance Use: No - SURGICAL HISTORY Hx Orthopedic Surgery: Yes - ANESTHESIA Hx Anesthesia Reactions: No Hx Malignant Hyperthermia: No Meds Allergies/Adverse Reactions: Allergies Allergy/AdvReac Type Severity Reaction Status Date / Time allopurinol Allergy Severe RASH Verified 04/12/18 12:12 ciprofloxacin [From Cipro] Allergy Severe RASH Verified 04/12/18 12:12 Physical Exam - Constitutional Appears: Non-toxic, No Acute Distress - Head Exam Head Exam: ATRAUMATIC, NORMOCEPHALIC - Eye Exam Eye Exam: EOMI, PERRL Pupil Exam: PERRL - ENT Exam ENT Exam: Mucous Membranes Moist, Normal Oropharynx - Neck Exam Neck exam: Positive for: Full Rom, Normal Inspection - Respiratory Exam Respiratory Exam: Rales (b/l crackles loudest at bases), Rhonchi (b/l coarse breath sounds diffusely). absent: Accessory Muscle Use, Chest Wall Tenderness, Wheezes, Respiratory Distress - Cardiovascular Exam Cardiovascular Exam: REGULAR RHYTHM, RRR, +S1, +S2. absent: Gallop, Rubs, Systolic Murmur - GI/Abdominal Exam GI & Abdominal Exam: Normal Bowel Sounds, Soft. absent: Guarding, Tenderness - Extremities Exam Extremities exam: Positive for: full ROM, pedal pulses present. Negative for: calf tenderness, pedal edema - Back Exam Back exam: FULL ROM, NORMAL INSPECTION - Neurological Exam Neurological exam: Alert, Oriented x3 - Psychiatric Exam Psychiatric exam: Normal Affect, Normal Mood - Skin Skin Exam: Dry, Intact, Warm Results - Vital Signs Recent Vital Signs: Last Vital Signs Temp 98.0 F 04/12/18 12:06 Pulse 81 04/12/18 12:06 Resp 16 04/12/18 12:06 BP 191/104 H 04/12/18 12:06 Pulse Ox 90 L 04/12/18 12:06 - Labs Result Diagrams: 04/12/18 12:00 04/12/18 12:00 Labs: Laboratory Results - last 24 hr 04/12/18 04/12/18 04/12/18 12:00 12:00 12:30 WBC 12.2 H RBC 3.74 Hgb 10.6 L Hct 34.1 L MCV 91.2 MCH 28.3 MCHC 31.1 RDW 15.2 H Plt Count 195 MPV 10.3 Neut % (Auto) 85.3 H Lymph % (Auto) 9.3 L [place] % (Auto) 5.2 Eos % (Auto) 0.1 L Baso % (Auto) 0.1 Lymph # (Auto) 1.1 L [place] # (Auto) 0.6 Eos # (Auto) 0.0 Baso # (Auto) 0.01 Absolute Neuts (auto) 10.41 H pO2 69 H VBG pH 7.36 VBG pCO2 36.0 L VBG HCO3 20.3 L VBG Total CO2 21.4 L VBG Base Excess -4.5 L VBG Potassium 6.2 H* Glucose 485 H* Lactate 5.4 H* FiO2 21.0 Crit Value Called To barry Alves Crit Value Called By [facility] Blood Gas Notified Time 1248 Sodium 131 L 129.0 L Potassium 6.2 H* D Chloride 91 L 93.0 L Carbon Dioxide 20 L Anion Gap 27 H BUN 83 H Creatinine 10.0 H* Est GFR ( Amer) 6 Est GFR (Non-Af Amer) 5 Random Glucose 441 H* D Calcium 8.6 Phosphorus 6.6 H Magnesium 2.8 H Total Bilirubin 0.4 AST 144 H ALT 171 H Alkaline Phosphatase 145 H Troponin I 0.05 Total Protein 7.6 Albumin 4.4 Globulin 3.2 Albumin/Globulin Ratio 1.4 Venous Blood Potassium 6.2 H* Assessment & Plan - Assessment and Plan (Free Text) Assessment: 77 yo M with PMH of ESRD (T/Th/Sat dialysis), DM2 (last A1c 7.9%), HTN, and prostate CA (s/p radiation) presents with worsening chest congestion, cough, SOB found to have b/l pulmonary edema on CXR. Patient also had an episode of weakness prior to dialysis in which he needed to sit immediately due to leg cramping. Plan: Dyspnea Suspect most likely 2/2 volume overload vs occult PNA B/l pulmonary edema seen on CXR in ED Patient admits to increased fluid intake yesterday since his believes he was having a URI Patient currently receiving dialysis Repeat CXR after dialysis to monitor for improvement Will continue antibiotics if CXR shows persistent infiltrates Received one time doses of vanc/cefepime in ED PT evaluate and treat Hyperkalemia/Uremia Most likely 2/2 inadequate dialysis ESRD most likely 2/2 diabetic nephropathy Patient currently receiving dialysis Recheck in AM Nephrology following, all recs appreciated HTN Patient's BP has remained elevated since admission Restart home clonidine patch and Coreg Monitor closely Consider adding PRN hydralazine if remaining elevated DM2 Last A1c 7.9% ISS while admitted Will restart home lantus if remaining hyperglycemic Normocytic anemia Most likely 2/2 anemia of chronic renal disease Stable, will continue to monitor DVT/GI PPX: SC heparin/protonix Full Code HHD Monitor on telemetry Patient seen, examined, and plan discussed with my attending Dr. Giancarlo Guzmán D.O. IM Resident PGY-1 Pager: [phone] <Lela Strickland R - Last Filed: 04/12/18 17:21> Results - Vital Signs Recent Vital Signs: Last Vital Signs Temp 98.0 F 04/12/18 12:06 Pulse 81 04/12/18 12:06 Resp 16 04/12/18 12:06 BP 191/104 H 04/12/18 12:06 Pulse Ox 90 L 04/12/18 12:06 - Labs Result Diagrams: 04/12/18 12:00 04/12/18 12:00 Labs: Laboratory Results - last 24 hr 04/12/18 04/12/18 04/12/18 12:00 12:00 12:30 WBC 12.2 H RBC 3.74 Hgb 10.6 L Hct 34.1 L MCV 91.2 MCH 28.3 MCHC 31.1 RDW 15.2 H Plt Count 195 MPV 10.3 Neut % (Auto) 85.3 H Lymph % (Auto) 9.3 L [place] % (Auto) 5.2 Eos % (Auto) 0.1 L Baso % (Auto) 0.1 Lymph # (Auto) 1.1 L [place] # (Auto) 0.6 Eos # (Auto) 0.0 Baso # (Auto) 0.01 Absolute Neuts (auto) 10.41 H pO2 69 H VBG pH 7.36 VBG pCO2 36.0 L VBG HCO3 20.3 L VBG Total CO2 21.4 L VBG Base Excess -4.5 L VBG Potassium 6.2 H* Glucose 485 H* Lactate 5.4 H* FiO2 21.0 Crit Value Called To barry Alves Crit Value Called By [facility] director telecommunications Blood Gas Notified Time 1248 Sodium 131 L 129.0 L Potassium 6.2 H* D Chloride 91 L 93.0 L Carbon Dioxide 20 L Anion Gap 27 H BUN 83 H Creatinine 10.0 H* Est GFR ( Amer) 6 Est GFR (Non-Af Amer) 5 Random Glucose 441 H* D Calcium 8.6 Phosphorus 6.6 H Magnesium 2.8 H Total Bilirubin 0.4 AST 144 H ALT 171 H Alkaline Phosphatase 145 H Troponin I 0.05 Total Protein 7.6 Albumin 4.4 Globulin 3.2 Albumin/Globulin Ratio 1.4 Venous Blood Potassium 6.2 H* Attending/Attestation - Attestation I have personally seen and examined this patient.: Yes I have fully participated in the care of the patient.: Yes I have reviewed all pertinent clinical information: Yes Notes (Text): Patient seen and examined by me with resident at 1:45PM on 04/12/18 in dialysis. Case including HPI, physical exam, and assessment and plan discussed with resident. Agree with above with following additions/corrections. Patient is a 77-year-old male with past medical history significant for end- stage renal disease on dialysis Wednesday//Wednesday, insulin-dependent type 2 diabetes, hypertension, and prostate cancer status post radiation that presented to the emergency room with shortness of breath, cough, and bilateral leg weakness. Patient's at bedside. Patient's states that she was hel ping him out of the car today to bring him to dialysis when patient felt weak in his legs. Per patient had to sit in the snow because he could not walk. Patient states that he has cramps and pain in his legs often. Per patient he has been coughing since 04/09/2018. states that the cough has been progressively getting worse. Per , she had been giving patient a lot of tea with lemon yesterday. Patient states that his phlegm has been "yellow." Patient's states that patient did have a lot of fluid intake yesterday. Patient started to feel short of breath yesterday. He states that it is worse with lying down. Patient states that he feels short of breath at rest and with exertion. Patient states he also feels like he has congestion in his chest. No fevers at home. However today, patient has been feeling "hot and cold." Patient denies any nausea, vomiting, or abdominal pain. No headaches or dizziness. No lightheadedness. No chest pain or palpitations. No diarrhea or constipation. Patient states he does still make urine and denies any dysuria or burning with urination. 12 point review of systems reviewed by me. Please see above HPI. All other systems negative. Physical exam: General: Awake and alert sitting up in bed in no acute distress. HEENT: Normocephalic, atraumatic. Extraocular muscles intact, pupils equal and reactive, no scleral icterus. Oropharynx is pink and moist. No pharyngeal erythema or exudate appreciated. Neck is supple. Hearing grossly intact. Ears and nose externally unremarkable. Cardiovascular: Normal rhythm. Normal S1 and S2. No murmurs, rubs, or gallops appreciated Pulmonary: Normal respiratory effort. Decreased breath sounds. Positive coarse breath sounds throughout. No wheezing appreciated. Gastrointestinal: Soft, nondistended. Nontender. Positive bowel sounds all 4 quadrants. No guarding. Musculoskeletal: Moves all extremities. No calf tenderness. Trace lower extremity edema appreciated. Central nervous system: AAOx3, CN 2-12 grossly intact. 5/5 muscle strength all extremities Dermatologic: Skin warm and dry. Assessment and plan: Patient is a 77-year-old male with past medical history significant for end-stage renal disease on dialysis Wednesday//Wednesday, insulin-dependent type 2 diabetes, hypertension, and prostate cancer status post radiation that presented to the emergency room with shortness of breath, cough, and bilateral leg weakness. 1. Dyspnea. Cough. May be secondary to fluid overload. Possible underlying pneumonia. Chest x-ray per radiologist shows bilateral infiltrates, right greater than left; possible bilateral pneumonia versus pulmonary edema. Will repeat chest x-ray post dialysis. Patient afebrile. Patient received vancomycin in the emergency room. Follow-up blood cultures. 2. Bilateral lower extremity weakness. Resolved. Per patient, has happened before. 5 out of 5 muscle strength on exam. PT eval and treat. 3. Hyperkalemia/uremia. For dialysis now. Follow up repeat labs postdialysis. Programmable Logic Controller Assembler consulted, follow-up recommendations. 4. End-stage renal disease on dialysis. Programmable Logic Controller Assembler consulted, follow-up recommendations. Continue home Sensipar and Renagel. Continue Nephro-Pamela. 5. Hypertension. Continue on Coreg and Terazosin. Continue patient's home clonidine patch. Follow-up with nephrology about restarting torsemide. 6. Insulin-dependent type 2 diabetes. Continue insulin sliding scale. Monitor Accu-Cheks. Add long-acting insulin if needed. 7. Anemia likely secondary to chronic disease. Patient asymptomatic. Continue to monitor CBC. 8. Hyperlipidemia. Continue Lipitor. 9. GI/DVT prophylaxis. Protonix/heparin 10. Patient is a full code Case was discussed in detail with the patient and patient's at bedside regarding current diagnosis and treatment plan. All questions answered.
[2018-04-12] MEDS ORDERED: TERAZOSIN PO SCH (18:00)
--- NOTE | 2018-04-12 19:37 | PCM.RRT ---
WARPING MILL OPERATOR Nurse Assessment - Situation Date: 04/12/18 Time WARPING MILL OPERATOR was called: 12:00 WARPING MILL OPERATOR Responder Arrival Time: 12:00 WARPING MILL OPERATOR Location:: Renal Dialysis WARPING MILL OPERATOR Reason for Call: Looks Sicker WARPING MILL OPERATOR Called By: RN - IV IV Inserted during WARPING MILL OPERATOR?: No - Respiratory Oxygen Delivery Method: Room Air Received Nebulizer Treatments:: No Was the Patient Ventilated with Bag/Mask 100% O2?: No Secretions Suctioned?: No Was the Patient Intubated?: No Was the Patient Placed on a Ventilator?: No - Diagnostic Test Ordered EKG: No Chest X-Ray: No CT Scan: No CPR started during WARPING MILL OPERATOR?: No - [place] Coma Scale Coma Scale Eye Opening: Spontaneous Coma Scale Motor: Obeys Commands Movement Coma Scale Verbal: Oriented - Time WARPING MILL OPERATOR Ended Time WARPING MILL OPERATOR Ended: 12:05 - Recommendations 5) WARPING MILL OPERATOR Level of Care Recommendations: Discharge to Emergency Room Notifications: Attending Physician, Family or Designated Caregiver I.Reason for WARPING MILL OPERATOR - A) Acute Change in Patient: Subjective: Jose Cruz Dhillon, PGY-1, WARPING MILL OPERATOR for Dr. Mcmahon 77 year old male was found to have bilateral lower extremity weakness on his way to outpatient dialysis today. Patient reportedly had not had this feeling in the past. Patient had worsening chest congestion and cough with productive yellow sputum for one week. Over the past day he developed SOB. He had bilateral lower extremity weakness on the way to dialysis this AM. was unable to assist him to dialysis and he had to sit in the snow, and patient was subsequently brought into the hospital to the dialysis unit. Patient was subsequently taken to ED after WARPING MILL OPERATOR was called. Patient denied dizziness, heart palpitations, nausea, vomiting, constipation, diarrhea, dysuria, hematuria. - Neurological Status (Select all that apply): Alert, Responsive, Oriented, Verbal, Follows Commands - Respiratory Oxygen Delivery Method: Room Air - Constitutional Appears: Well, Non-toxic, No Acute Distress - Head Head Exam: ATRAUMATIC, NORMAL INSPECTION, NORMOCEPHALIC - Eyes Eye Exam: EOMI, PERRL - Respiratory Exam Respiratory Exam: Clear to Ausculation Bilateral, NORMAL BREATHING PATTERN - Cardiovascular Exam Cardiovascular Exam: REGULAR RHYTHM, RRR - GI/Abdominal Exam GI & Abdominal Exam: Soft, Normal Bowel Sounds. absent: Tenderness - Neurological Exam Neurological Exam: Alert, Awake, CN II-XII Intact, Oriented x3 - Extremities Exam Extremities Exam: Full ROM Plan - Assessment of Findings&Treatment Plan Dyspnea -Patient was taken to the emergency department for further workup and evaluation including CXR to further evaluate patient's condition.
[2018-04-12 19:44] LABS: VENOUS BLOOD GAS BASE EXCESS 4.7 mmol/L (0.0-2.0); VENOUS BLOOD GAS PO2 29 mm/Hg (30-55); VENOUS BLOOD PH 7.45 (7.32-7.43)
[2018-04-12] MEDS ORDERED: Vancomycin 500mg in NS 500 MG/100 ML BAG IVPB ONE (20:37)
[2018-04-12] MEDS: Insulin Lispro (humaLOG) MEDIUM Coverage SC SCH (21:35)
[2018-04-12] MEDS ORDERED: Influenza Vaccine 60 mcg/0.5 mL SYR (4YR UP) IM ONE (21:52)
[2018-04-12] MEDS ORDERED: Pneumococcal 23-Valent Vaccine IM ONE (21:52)
[2018-04-12] MEDS: Insulin Detemir 100 units/ml Vial (Levemir) SC SCH (22:40)
[2018-04-13] MEDS: Pantoprazole 40 mg EC Tab PO SCH (05:31)
[2018-04-13 06:49] LABS: BASO # 0.01 K/mm3 (0.0-2.0); BASO % 0.1 % (0.0-3.0); EOS # 0.2 (0.0-0.7); EOS % 1.2 % (1.5-5.0); HEMOGLOBIN 10.1 g/dL (14.0-18.0); LYMPH # 1.8 (1.2-3.4); LYMPH % 14.3 % (22.0-35.0); MEAN CELL VOLUME 90.9 fl (80.0-105.0); MEAN CORPUSCULAR HGB CONC 30.8 g/dl (31.0-37.0); MEAN PLATELET VOLUME 10.3 fl (7.0-11.0); MONO # 0.9 (0.1-0.6); MONO % 7.1 % (1.0-6.0); RBC 3.61 10^6/uL (3.5-6.1); RED CELL DISTRIBUTION WIDTH 15.2 % (11.5-14.5); WHITE BLOOD COUNT 12.3 10^3/uL (4.5-11.0)
[2018-04-13 07:32] LABS: ALB/GLOB RATIO 1.2 (1.1-1.8); ALBUMIN 3.9 g/dL (3.0-4.8); CALCIUM 8.7 mg/dL (8.4-10.5)
--- NOTE | 2018-04-13 07:34 | CP.PCM.PN ---
<Luke Guzmán - Last Filed: 04/13/18 13:19> Subjective - Date & Time of Evaluation Date of Evaluation: 04/13/18 Time of Evaluation: 07:33 - Subjective Subjective: Luke Guzmán DO, PGY-1 Hospitalist Progress Note for Dr. Giancarlo Strickland Patient was seen and examined at bedside this AM. He reports feeling less short of breath this AM and states he feels better than yesterday. However, he hasn't ambulated yet after dialysis today. He still complains of b/l lower leg cramping and states he fears he will be unable to walk again. Otherwise, he denies fever/chills, CP, SOB, nausea/vomiting/abdominal pain, or urinary complaints. Objective - Vital Signs/Intake and Output Vital Signs (last 24 hours): Temp Pulse Resp BP Pulse Ox 98.6 F 84 20 139/80 98 04/13/18 05:45 04/13/18 05:45 04/13/18 05:45 04/13/18 05:45 04/13/18 05:45 Intake and Output: 04/13/18 04/13/18 06:59 18:59 Intake Total 800 Balance 800 - Medications Medications: Current Medications Acetaminophen (Tylenol 325mg Tab) 650 mg PO Q6H PRN PRN Reason: Pain, moderate (4-7) Aspirin (Ecotrin) 81 mg PO DAILY [facility] Atorvastatin Calcium (Lipitor) 20 mg PO DAILY [facility] Carvedilol (Coreg) 25 mg PO BID [facility] Last Admin: 04/12/18 22:17 Dose: 25 mg Cinacalcet (Sensipar) 60 mg PO BID [facility] Last Admin: 04/12/18 22:17 Dose: 60 mg Clonidine HCl (Catapres-Tts3 0.3 Mg/24 Hr) 1 patch TD Q7D@1000 [facility] Last Admin: 04/12/18 22:39 Dose: 1 patch Heparin Sodium (Porcine) (Heparin) 5,000 units SC Q8 [facility]; Protocol Last Admin: 04/13/18 05:30 Dose: 5,000 units Hydralazine HCl (Apresoline) 10 mg IVP Q6H PRN PRN Reason: Systolic Blood Pressure Insulin Detemir (Levemir) 8 unit SC HS [facility] Last Admin: 04/12/18 22:40 Dose: 8 units Insulin Human Lispro (Humalog Med) 0 units SC ACHS [facility]; Protocol Last Admin: 04/12/18 21:35 Dose: Not Given Losartan Potassium (Cozaar) 100 mg PO DAILY [facility] Last Admin: 04/12/18 22:16 Dose: 100 mg Terazosin [Hytrin] 4 (Mg (Home Med)) 4 mg PO BID [facility] Pantoprazole Sodium (Protonix Ec Tab) 40 mg PO 0600 [facility] Last Admin: 04/13/18 05:31 Dose: 40 mg Sevelamer HCl (Renagel) 800 mg PO WM [facility] Last Admin: 04/12/18 22:17 Dose: 800 mg Vitamin B Complex/Vit C/Folic Acid (Nephro-Pamela) 1 tab PO DAILY [facility] - Labs Labs: 04/13/18 06:30 04/13/18 06:30 - Constitutional Appears: Non-toxic, No Acute Distress - Head Exam Head Exam: ATRAUMATIC, NORMOCEPHALIC - Eye Exam Eye Exam: EOMI, PERRL - ENT Exam ENT Exam: Mucous Membranes Moist - Neck Exam Neck Exam: Full ROM, Normal Inspection - Respiratory Exam Respiratory Exam: Rales (b/l rales loudest at bases R > L improved from yesterday), Rhonchi (coarse breath sounds b/l improved from yesterday). absent: Wheezes - Cardiovascular Exam Cardiovascular Exam: REGULAR RHYTHM, RRR. absent: Gallop, Rubs, Murmur - GI/Abdominal Exam GI & Abdominal Exam: Soft, Normal Bowel Sounds. absent: Guarding, Tenderness - Extremities Exam Extremities Exam: Normal Inspection. absent: Pedal Edema - Back Exam Back Exam: NORMAL INSPECTION - Neurological Exam Neurological Exam: Alert, Awake, CN II-XII Intact, Oriented x3 Neuro motor strength exam: Left Upper Extremity: 5, Right Upper Extremity: 5, Left Lower Extremity: 4, Right Lower Extremity: 5 - Psychiatric Exam Psychiatric exam: Normal Affect, Normal Mood - Skin Skin Exam: Dry, Intact, Warm Assessment and Plan - Assessment and Plan (Free Text) Assessment: 77 yo M with PMH of ESRD (T//Sat dialysis), DM2 (last A1c 7.9%), HTN, and prostate CA (s/p radiation) presents with worsening chest congestion, cough, SOB found to have b/l pulmonary edema on CXR. Patient also had an episode of weakness prior to dialysis in which he needed to sit immediately due to leg cramping. 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 Plan: Dyspnea May be 2/2 RLL PNA vs vascular congestion Repeat CXR completed after dialysis yesterday evening showed improved but persistent pulmonary edema R > L Will begin treatment for presumed HCAP given patient's history of dialysis and leukocytosis Repeat dose of vancomycin given, monitor vancomycin trough Positive procal, but may be 2/2 ESRD ID consulted for abx management, all recs appreciated Persistent B/l LE cramping and weakness May be 2/2 fluid loss from dialysis yesterday vs physical deconditioning OOB to chair and ambulate patient with assistance Fall precautions PT evaluation and treatment today F/u PT recs Hyperkalemia/Uremia Hyperkalemia resolved this AM BUN/Cr now at baseline Plan for dialysis tomorrow to continue T// schedule Nephrology following, all recs appreciated HTN Home clonidine patch and Coreg restarted Hold coreg and terazosin if SBP < 150 or DBP < 70 BP now improved Monitor closely Continue PRN hydralazine DM2 Last A1c 7.9% ISS while admitted Home lantus restarted per nephrology recs Normocytic anemia Most likely 2/2 anemia of chronic renal disease Stable, asymptomatic, continue to monitor DVT/GI PPX: SC heparin/protonix Full Code HHD Monitor on telemetry Patient seen, examined, and plan discussed with my attending Dr. Giancarlo Guzmán D.O. IM Resident PGY-1 Pager: [phone] <Lela Strickland R - Last Filed: 04/13/18 17:54> Objective - Vital Signs/Intake and Output Vital Signs (last 24 hours): Temp Pulse Resp BP Pulse Ox 98.7 F 70 18 132/79 98 04/13/18 12:00 04/13/18 12:00 04/13/18 12:00 04/13/18 12:00 04/13/18 05:45 Intake and Output: 04/13/18 04/13/18 06:59 18:59 Intake Total 800 Balance 800 - Medications Medications: Current Medications Acetaminophen (Tylenol 325mg Tab) 650 mg PO Q6H PRN PRN Reason: Pain, moderate (4-7) Aspirin (Ecotrin) 81 mg PO DAILY [facility] Last Admin: 04/13/18 10:08 Dose: 81 mg Atorvastatin Calcium (Lipitor) 20 mg PO DAILY [facility] Last Admin: 04/13/18 10:07 Dose: 20 mg Carvedilol (Coreg) 25 mg PO BID [facility] Last Admin: 04/13/18 10:08 Dose: 25 mg Cinacalcet (Sensipar) 60 mg PO BID [facility] Last Admin: 04/13/18 10:07 Dose: 60 mg Clonidine HCl (Catapres-Tts3 0.3 Mg/24 Hr) 1 patch TD Q7D@1000 [facility] Last Admin: 04/12/18 22:39 Dose: 1 patch Heparin Sodium (Porcine) (Heparin) 5,000 units SC Q8 [facility]; Protocol Last Admin: 04/13/18 15:59 Dose: 5,000 units Hydralazine HCl (Apresoline) 10 mg IVP Q6H PRN PRN Reason: Systolic Blood Pressure Cefepime HCl (Maxipime 1gm) 1 gm in 100 mls @ 100 mls/hr IVPB Q24H [facility]; Protocol Insulin Detemir (Levemir) 8 unit SC HS [facility] Last Admin: 04/12/18 22:40 Dose: 8 units Insulin Human Lispro (Humalog Med) 0 units SC ACHS [facility]; Protocol Last Admin: 04/13/18 15:59 Dose: 3 units Losartan Potassium (Cozaar) 100 mg PO DAILY [facility] Last Admin: 04/13/18 10:07 Dose: 100 mg Terazosin [Hytrin] 4 (Mg (Home Med)) 4 mg PO BID [facility] Pantoprazole Sodium (Protonix Ec Tab) 40 mg PO 0600 [facility] Last Admin: 04/13/18 05:31 Dose: 40 mg Sevelamer HCl (Renagel) 800 mg PO WM [facility] Last Admin: 04/13/18 16:00 Dose: 800 mg Torsemide (Demadex) 50 mg PO BID [facility] Vitamin B Complex/Vit C/Folic Acid (Nephro-Pamela) 1 tab PO DAILY [facility] Last Admin: 04/13/18 10:08 Dose: 1 tab - Labs Labs: 04/13/18 06:30 04/13/18 06:30 Attending/Attestation - Attestation I have personally seen and examined this patient.: Yes I have fully participated in the care of the patient.: Yes I have reviewed all pertinent clinical information, including history, physical exam and plan: Yes Notes (Text): Patient seen and examined by me with resident at 9:25AM on 04/13/18. Case including HPI, physical exam, and assessment and plan discussed with resident. Agree with above with following additions/corrections. Patient is a 77-year-old male with past medical history significant for end- stage renal disease on dialysis Wednesday//Wednesday, insulin-dependent type 2 diabetes, hypertension, and prostate cancer status post radiation that presented to the emergency room with shortness of breath, cough, and bilateral leg weakness. Patient states he is feeling better. States shortness of breath has improved. O2 via nasal cannula is helping. Patient feels a little short of breath without it. States he is still having a productive cough. Patient denies any nausea, vomiting, or abdominal pain. No headaches or dizziness. No lightheadedness. No chest pain or palpitations. No diarrhea or constipation. No dysuria. Physical exam: General: Awake and alert sitting up in bed in no acute distress. HEENT: Normocephalic, atraumatic. Extraocular muscles intact, pupils equal and reactive, no scleral icterus. Oropharynx is pink and moist. No pharyngeal erythema or exudate appreciated. Neck is supple. Cardiovascular: Normal rhythm. Normal S1 and S2. No murmurs, rubs, or gallops appreciated Pulmonary: Normal respiratory effort. Decreased breath sounds. Scattered rhonchi and crackles. No wheezing appreciated. Gastrointestinal: Soft, nondistended. Nontender. Positive bowel sounds all 4 quadrants. No guarding. Musculoskeletal: Moves all extremities. No calf tenderness. Trace lower extremity edema appreciated. Central nervous system: AAOx3, CN 2-12 grossly intact. 5/5 muscle strength all extremities Dermatologic: Skin warm and dry. Assessment and plan: Patient is a 77-year-old male with past medical history significant for end-stage renal disease on dialysis Wednesday//Wednesday, insulin-dependent type 2 diabetes, hypertension, and prostate cancer status post radiation that presented to the emergency room with shortness of breath, cough, and bilateral leg weakness. 1. Dyspnea. Cough. May be secondary to fluid overload. Possible underlying pneumonia. Chest x-ray on admission per radiologist shows bilateral infiltrates, right greater than left; possible bilateral pneumonia versus pulmonary edema. Repeat chest x-ray post dialysis per radiologist shows improvement in the vascular and interstitial congestion seen earlier. Patient afebrile. Blood cultures with no growth so far. ID consulted, recommendations appreciated. 2. Bilateral lower extremity weakness. Resolved. Per patient, has happened before. 5/5 muscle strength on exam. PT eval and treat. 3. Hyperkalemia/uremia. Resolved. S/P dialysis yesterday. Automatic Mounter following, recommendations appreciated. 4. End-stage renal disease on dialysis. Automatic Mounter following, recommendations appreciated. Continue HD on //Wed. Continue home Sensipar and Renagel. Continue Nephro-Pamela. 5. Hypertension. Continue on Coreg and Terazosin. Continue Cozaar and torsemide. Continue with clonidine patch. 6. Insulin-dependent type 2 diabetes. Continue insulin sliding scale. Continue levemir 8 units at bedtime. Continue to monitor accuchecks. 7. Anemia likely secondary to chronic disease. Patient asymptomatic. Continue to monitor CBC. H&H stable. 8. Hyperlipidemia. Continue Lipitor. 9. GI/DVT prophylaxis. Protonix/heparin 10. Patient is a full code Case was discussed in detail with the patient regarding current diagnosis and treatment plan. All questions answered.
[2018-04-13] MEDS: Insulin Lispro (humaLOG) MEDIUM Coverage SC SCH ×4 (07:59→21:59)
--- NOTE | 2018-04-13 09:38 | CARD ---
APPROVED REPORT Date of service: 04/12/2018 EKG Measurement Heart [id number] <Conclusion> Sinus rhythm with 1st degree AV block Possible Left atrial enlargement Nonspecific intraventricular conduction delay Prolonged QT Abnormal ECG
--- NOTE | 2018-04-13 09:57 | RAD ---
Date of service: 04/12/2018 HISTORY: prior abnormal cxr with pulmonary edema COMPARISON: Earlier same day FINDINGS: LUNGS: There improvement in the vascular and interstitial congestion seen earlier. PLEURA: No significant pleural effusion identified, no pneumothorax apparent. CARDIOVASCULAR: Aortic calcification Normal cardiac size. Moderate vascular congestion OSSEOUS STRUCTURES: No significant abnormalities. VISUALIZED UPPER ABDOMEN: Normal. OTHER FINDINGS: None. IMPRESSION: There is improvement in the vascular and interstitial congestion seen earlier.
[2018-04-13] MEDS: Multivitamin Vitamin B Complex (Nephro-Vite) Tab PO SCH (10:08)
[2018-04-13 13:06] LABS: HEPATITIS B SURFACE AG Negative (NEGATIVE)
[2018-04-13 13:24] LABS: HEPATITIS C ANTIBODY NEGATIVE (NEGATIVE)
--- NOTE | 2018-04-13 15:58 | CP.PCM.APN ---
Subjective - Date & Time of Evaluation Date of Evaluation: 04/13/18 Time of Evaluation: 03:30 - Subjective Subjective: Pt. seen and examined, sitting up in chair at bedside. States breathing has improved, denied chest pain, dyspnea, states walked with Physical therapist today, without dyspnea. Objective - Vital Signs/Intake and Output Vital Signs (last 24 hours): Temp Pulse Resp BP Pulse Ox 98.7 F 70 18 132/79 98 04/13/18 12:00 04/13/18 12:00 04/13/18 12:00 04/13/18 12:00 04/13/18 05:45 Intake and Output: 04/13/18 04/13/18 06:59 18:59 Intake Total 800 Balance 800 - Medications Medications: Current Medications Acetaminophen (Tylenol 325mg Tab) 650 mg PO Q6H PRN PRN Reason: Pain, moderate (4-7) Aspirin (Ecotrin) 81 mg PO DAILY [facility] Last Admin: 04/13/18 10:08 Dose: 81 mg Atorvastatin Calcium (Lipitor) 20 mg PO DAILY [facility] Last Admin: 04/13/18 10:07 Dose: 20 mg Carvedilol (Coreg) 25 mg PO BID [facility] Last Admin: 04/13/18 10:08 Dose: 25 mg Cinacalcet (Sensipar) 60 mg PO BID [facility] Last Admin: 04/13/18 10:07 Dose: 60 mg Clonidine HCl (Catapres-Tts3 0.3 Mg/24 Hr) 1 patch TD Q7D@1000 [facility] Last Admin: 04/12/18 22:39 Dose: 1 patch Heparin Sodium (Porcine) (Heparin) 5,000 units SC Q8 [facility]; Protocol Last Admin: 04/13/18 05:30 Dose: 5,000 units Hydralazine HCl (Apresoline) 10 mg IVP Q6H PRN PRN Reason: Systolic Blood Pressure Cefepime HCl (Maxipime 1gm) 1 gm in 100 mls @ 100 mls/hr IVPB Q24H [facility]; Protocol Insulin Detemir (Levemir) 8 unit SC HS [facility] Last Admin: 04/12/18 22:40 Dose: 8 units Insulin Human Lispro (Humalog Med) 0 units SC ACHS [facility]; Protocol Last Admin: 04/13/18 12:07 Dose: 1 unit Losartan Potassium (Cozaar) 100 mg PO DAILY [facility] Last Admin: 04/13/18 10:07 Dose: 100 mg Terazosin [Hytrin] 4 (Mg (Home Med)) 4 mg PO BID [facility] Pantoprazole Sodium (Protonix Ec Tab) 40 mg PO 0600 [facility] Last Admin: 04/13/18 05:31 Dose: 40 mg Sevelamer HCl (Renagel) 800 mg PO WM [facility] Last Admin: 04/13/18 12:07 Dose: 800 mg Torsemide (Demadex) 50 mg PO BID [facility] Vitamin B Complex/Vit C/Folic Acid (Nephro-Paemla) 1 tab PO DAILY [facility] Last Admin: 04/13/18 10:08 Dose: 1 tab - Labs Labs: 04/13/18 06:30 04/13/18 06:30 - Constitutional Appears: Well, Non-toxic - Head Exam Head Exam: NORMOCEPHALIC - Eye Exam Eye Exam: Normal appearance - ENT Exam ENT Exam: absent: Mucous Membranes Dry, Mucous Membranes Moist, Normal Exam, Normal External Ear Exam, Normal Oropharynx, TM's Normal Bilaterally - Neck Exam Neck Exam: Full ROM, Normal Inspection - Respiratory Exam Respiratory Exam: Clear to Ausculation Bilateral, NORMAL BREATHING PATTERN - Cardiovascular Exam Cardiovascular Exam: REGULAR RHYTHM, +S1, +S2 - GI/Abdominal Exam GI & Abdominal Exam: Soft, Normal Bowel Sounds - Rectal Exam Rectal Exam: Deferred - Exam Exam: absent: Circumcision, NORMAL INSPECTION, Scrotal Swelling, Testicular Tenderness, Uretheral Discharge, Testicular Vertical Lie, Bladder Distension External exam: absent: Ecchymosis, Erythema, Lacerations, Lesions, NORMAL EXTERNAL EXAM, Swelling Speculum exam: absent: Cervical Discharge, Erythema, Foreign Body, Laceration, NORMAL SPECULUM EXAM, Tissue, Vaginal Bleeding, Vaginal Discharge Bimanual exam: absent: Adenexal Mass, Adnexal, Cervical Motion Tendernes, NORMAL BIMANUAL EXAM, Uterine Enlargement, Uterine Tenderness - Extremities Exam Extremities Exam: Full ROM - Back Exam Back Exam: Full ROM - Neurological Exam Neurological Exam: Alert, Awake, Oriented x3 - Psychiatric Exam Psychiatric exam: Normal Affect, Normal Mood - Skin Skin Exam: Dry, Intact Assessment and Plan - Assessment and Plan (Free Text) Assessment: ITS Impressions Chest X-Ray 04/12/18 12:19 IMPRESSION: Bilateral infiltrates, right greater than left. Possible bilateral pneumonia versus pulmonary edema.. Follow-up advised. Chest X-Ray 04/12/18 18:00 IMPRESSION: There is improvement in the vascular and interstitial congestion seen earlier. 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 for right Lower lobe pneumonia, Id consulted for management, patient received 1 dose of Cefepime in E.D, septic work up pending. Plan: 1. RLL pneumonia I.D. consult pending, blood cx, sputum cx, urine cx pending. -follow, trend cbc. 2. Dyspnea -Likely secondary to RLL -monitor O2 sats, 3. Hyperkalemia Improved, trend electrolytes 4. CRF on HD, HD treatments as per Renal. Will continue to monitor closely and follow clinical status. Will discuss with consultants and PMD.
--- NOTE | 2018-04-13 16:13 | IP.NPCORE ---
Pneumonia Progress Notes - Oxygenation Assessment (REQUIRED) Oxygen Delivery Method: Nasal Cannula Documented P02: Yes - Blood Cultures (REQUIRED) Culture drawn: Yes - Initial Antibiotic Initial Antibiotic given within Four Hours:: Yes - Appropriate Antibiotic Appropriate Antibiotic within 24 hours of Admission:: Yes Infectious Disease Consult: 04/13/18 16:12 ID consult pending - Smoking Cessation Smoking Cessation counseling provided:: No Ex-Smoker (has not smoked in the last 12 months): No Current Smoker - smoking cessation education provided: No
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
--- NOTE | 2018-04-13 18:53 | CP.PCM.PN ---
<Kavin Bean - Last Filed: 04/13/18 18:50> Subjective - Date & Time of Evaluation Date of Evaluation: 04/13/18 Time of Evaluation: 08:00 - Subjective Subjective: Nephrology progress note-Vikas, PGY-2 Patient was seen and examined at bedside. Patient states that hes feeling much better from yesterday. Patient had an [employer] called for bilateral lower extremity weakness yesterday, however he did not fall did not hit his head and had no neuromuscular signs of weakness and exam. Patient had dialysis yesterday with 3 L of ultrafiltration and low Potassium diasylate. Patient denies any new symptoms Objective - Vital Signs/Intake and Output Vital Signs (last 24 hours): Temp Pulse Resp BP Pulse Ox 98.7 F 86 18 153/74 H 98 04/13/18 12:00 04/13/18 18:30 04/13/18 12:00 04/13/18 18:30 04/13/18 05:45 Intake and Output: 04/13/18 04/13/18 06:59 18:59 Intake Total 800 1020 Output Total 150 Balance 800 870 - Medications Medications: Current Medications Acetaminophen (Tylenol 325mg Tab) 650 mg PO Q6H PRN PRN Reason: Pain, moderate (4-7) Aspirin (Ecotrin) [address] [facility] Last Admin: 04/13/18 10:08 Dose: 81 mg Atorvastatin Calcium (Lipitor) [address] [facility] Last Admin: 04/13/18 10:07 Dose: 20 mg Carvedilol (Coreg) [address] [facility] Last Admin: 04/13/18 18:30 Dose: 25 mg Cinacalcet (Sensipar) [address] [facility] Last Admin: 04/13/18 18:30 Dose: 60 mg Clonidine HCl (Catapres-Tts3 0.3 Mg/24 Hr) 1 patch TD Q7D@1000 [facility] Last Admin: 04/12/18 22:39 Dose: 1 patch Heparin Sodium (Porcine) (Heparin) 5,[address] [facility]; Protocol Last Admin: 04/13/18 15:59 Dose: 5,000 units Hydralazine HCl (Apresoline) 10 mg IVP Q6H PRN PRN Reason: Systolic Blood Pressure Cefepime HCl (Maxipime 1gm) 1 gm in 100 mls @ 100 mls/hr IVPB Q24H [facility]; Protocol Insulin Detemir (Levemir) [address] [facility] Last Admin: 04/12/18 22:40 Dose: 8 units Insulin Human Lispro (Humalog Med) [address] [facility]; Protocol Last Admin: 04/13/18 15:59 Dose: 3 units Losartan Potassium (Cozaar) [address] [facility] Last Admin: 04/13/18 10:07 Dose: 100 mg Terazosin [Hytrin] 4 (Mg (Home Med)) [address] [facility] Pantoprazole Sodium (Protonix Ec Tab) [address] [facility] Last Admin: 04/13/18 05:31 Dose: 40 mg Sevelamer HCl (Renagel) [address] [facility] Last Admin: 04/13/18 16:00 Dose: 800 mg Torsemide (Demadex) [address] [facility] Last Admin: 04/13/18 18:29 Dose: 50 mg Vitamin B Complex/Vit C/Folic Acid (Nephro-Pamela) [address] [facility] Last Admin: 04/13/18 10:08 Dose: 1 tab - Labs Labs: 04/13/18 06:30 04/13/18 06:30 - Constitutional Appears: Well - Head Exam Head Exam: ATRAUMATIC, NORMAL INSPECTION, NORMOCEPHALIC - Eye Exam Eye Exam: EOMI, Normal appearance, PERRL Pupil Exam: NORMAL ACCOMODATION, PERRL - ENT Exam ENT Exam: Mucous Membranes Moist, Normal Exam - Neck Exam Neck Exam: Full ROM, Normal Inspection. absent: Lymphadenopathy - Respiratory Exam Respiratory Exam: Clear to Ausculation Bilateral, NORMAL BREATHING PATTERN - Cardiovascular Exam Cardiovascular Exam: REGULAR RHYTHM, +S1, +S2. absent: Murmur - GI/Abdominal Exam GI & Abdominal Exam: Soft, Normal Bowel Sounds. absent: Tenderness - Extremities Exam Extremities Exam: Full ROM, Normal Capillary Refill, Normal Inspection. absent: Joint Swelling, Pedal Edema - Back Exam Back Exam: NORMAL INSPECTION - Neurological Exam Neurological Exam: Alert, Awake, CN II-XII Intact, Normal Gait, Oriented x3 - Psychiatric Exam Psychiatric exam: Normal Affect, Normal Mood - Skin Skin Exam: Dry, Intact, Normal Color, Warm <Elio Oconnell - Last Filed: 04/14/18 06:17> Objective - Vital Signs/Intake and Output Vital Signs (last 24 hours): Temp Pulse Resp BP Pulse Ox 99.0 F 89 20 158/85 H 99 04/14/18 05:37 04/14/18 05:39 04/14/18 05:37 04/14/18 05:37 04/14/18 05:37 Intake and Output: 04/13/18 04/14/18 18:59 06:59 Intake Total 1020 600 Output Total 150 60 Balance 870 540 - Medications Medications: Current Medications Acetaminophen (Tylenol 325mg Tab) 650 mg PO Q6H PRN PRN Reason: Pain, moderate (4-7) Aspirin (Ecotrin) [address] [facility] Last Admin: 04/13/18 10:08 Dose: 81 mg Atorvastatin Calcium (Lipitor) [address] [facility] Last Admin: 04/13/18 10:07 Dose: 20 mg Carvedilol (Coreg) [address] [facility] Last Admin: 04/13/18 18:30 Dose: 25 mg Cinacalcet (Sensipar) [address] [facility] Last Admin: 04/13/18 18:30 Dose: 60 mg Clonidine HCl (Catapres-Tts3 0.3 Mg/24 Hr) 1 patch TD Q7D@1000 [facility] Last Admin: 04/12/18 22:39 Dose: 1 patch Heparin Sodium (Porcine) (Heparin) 5,[address] [facility]; Protocol Last Admin: 04/14/18 05:01 Dose: 5,000 units Hydralazine HCl (Apresoline) 10 mg IVP Q6H PRN PRN Reason: Systolic Blood Pressure Last Admin: 04/14/18 00:35 Dose: 10 mg Cefepime HCl (Maxipime 1gm) 1 gm in 100 mls @ 100 mls/hr IVPB Q24H [facility]; Protocol Insulin Detemir (Levemir) [address] [facility] Last Admin: 04/13/18 22:05 Dose: Not Given Insulin Human Lispro (Humalog Med) [address] [facility]; Protocol Last Admin: 04/13/18 21:59 Dose: Not Given Losartan Potassium (Cozaar) [address] [facility] Last Admin: 04/13/18 10:07 Dose: 100 mg Terazosin [Hytrin] 4 (Mg (Home Med)) [address] [facility] Pantoprazole Sodium (Protonix Ec Tab) [address] [facility] Last Admin: 04/14/18 05:02 Dose: 40 mg Sevelamer HCl (Renagel) [address] [facility] Last Admin: 04/13/18 16:00 Dose: 800 mg Torsemide (Demadex) [address] [facility] Last Admin: 04/13/18 18:29 Dose: 50 mg Vitamin B Complex/Vit C/Folic Acid (Nephro-Pamela) [address] [facility] Last Admin: 04/13/18 10:08 Dose: 1 tab - Labs Labs: 04/13/18 06:30 04/13/18 06:30 Attending/Attestation - Attestation I have personally seen and examined this patient.: Yes I have fully participated in the care of the patient.: Yes I have reviewed all pertinent clinical information, including history, physical exam and plan: Yes Notes (Text): Patient seen and examined; I agree with the resident's note as above with the following additions/edits: 77 yo M w/ pmh of htn, dm, and ESRD on HD, admitted with sepsis and acute hypoxemic resp failure thought secondary to PNA; Respiratory status improved with O2 sat 99% on NC O2; question of whether there was volume overload component as symptoms improved after HD; awaiting repeat echo (previously with normal EF); Discussed with ID, elevated procalcitonin level is suggestive of bacterial infection; started on cefepime, being dosed for HD; Hypertensive ESRD with BP much improved on resuming home meds (although still not getting terazosin - non-formulary here); will continue same; diuretics also resumed; Stable volume and electrolyte status; next HD for tomorrow per routine;
[2018-04-13 19:08] LABS: URINE BILIRUBIN NEGATIVE (NEGATIVE); URINE BLOOD TRACE-INTACT (NEGATIVE); URINE COLOR YELLOW (YELLOW); URINE GLUCOSE (UA) 250 mg/dL (NEGATIVE); URINE LEUKOCYTE ESTERASE NEGATIVE Leu/uL (NEGATIVE); URINE PROTEIN >=300 mg/dL (<30 mg/dL); URINE UROBILINOGEN 0.2 E.U./dL (<1 E.U./dL)
[2018-04-13 19:09] LABS: URINE APPEARANCE CLEAR (CLEAR)
[2018-04-13 19:18] LABS: URINE BACTERIA SMALL /hpf; URINE RBC 0 - 2 /hpf (0-2); URINE WBC 0 - 2 /hpf (0-6)
[2018-04-13] MEDS: Insulin Detemir 100 units/ml Vial (Levemir) SC SCH (22:05)
[2018-04-14] MEDS: Pantoprazole 40 mg EC Tab PO SCH (05:02)
--- NOTE | 2018-04-14 07:12 | CP.PCM.PN ---
<Luke Guzmán - Last Filed: 04/14/18 12:35> Subjective - Date & Time of Evaluation Date of Evaluation: 04/14/18 Time of Evaluation: 07:12 - Subjective Subjective: Luke Guzmán DO, PGY-1 Hospitalist Progress Note for Dr. Giancarlo Strickland Patient was seen and examined at bedside this AM. He reports having persistent cough and SOB this AM but both have improved since admission. He states he has been coughing up phlegm. He has been able to ambulate with physical therapy without significant difficulty. They are recommending outpatient PT 3 times per week. Objective - Vital Signs/Intake and Output Vital Signs (last 24 hours): Temp Pulse Resp BP Pulse Ox 99.0 F 89 20 158/85 H 99 04/14/18 05:37 04/14/18 05:39 04/14/18 05:37 04/14/18 05:37 04/14/18 05:37 Intake and Output: 04/14/18 04/14/18 06:59 18:59 Intake Total 600 Output Total 60 Balance 540 - Medications Medications: Current Medications Acetaminophen (Tylenol 325mg Tab) 650 mg PO Q6H PRN PRN Reason: Pain, moderate (4-7) Aspirin (Ecotrin) 81 mg PO DAILY [facility] Last Admin: 04/13/18 10:08 Dose: 81 mg Atorvastatin Calcium (Lipitor) 20 mg PO DAILY [facility] Last Admin: 04/13/18 10:07 Dose: 20 mg Carvedilol (Coreg) 25 mg PO BID [facility] Last Admin: 04/13/18 18:30 Dose: 25 mg Cinacalcet (Sensipar) 60 mg PO BID [facility] Last Admin: 04/13/18 18:30 Dose: 60 mg Clonidine HCl (Catapres-Tts3 0.3 Mg/24 Hr) 1 patch TD Q7D@1000 [facility] Last Admin: 04/12/18 22:39 Dose: 1 patch Heparin Sodium (Porcine) (Heparin) 5,000 units SC Q8 [facility]; Protocol Last Admin: 04/14/18 05:01 Dose: 5,000 units Hydralazine HCl (Apresoline) 10 mg IVP Q6H PRN PRN Reason: Systolic Blood Pressure Last Admin: 04/14/18 00:35 Dose: 10 mg Cefepime HCl (Maxipime 1gm) 1 gm in 100 mls @ 100 mls/hr IVPB Q24H [facility]; Protocol Insulin Detemir (Levemir) 8 unit SC HS [facility] Last Admin: 04/13/18 22:05 Dose: Not Given Insulin Human Lispro (Humalog Med) 0 units SC ACHS [facility]; Protocol Last Admin: 04/13/18 21:59 Dose: Not Given Losartan Potassium (Cozaar) 100 mg PO DAILY [facility] Last Admin: 04/13/18 10:07 Dose: 100 mg Terazosin [Hytrin] 4 (Mg (Home Med)) 4 mg PO BID [facility] Pantoprazole Sodium (Protonix Ec Tab) 40 mg PO 0600 [facility] Last Admin: 04/14/18 05:02 Dose: 40 mg Sevelamer HCl (Renagel) 800 mg PO WM [facility] Last Admin: 04/13/18 16:00 Dose: 800 mg Torsemide (Demadex) 50 mg PO BID [facility] Last Admin: 04/13/18 18:29 Dose: 50 mg Vitamin B Complex/Vit C/Folic Acid (Nephro-Pamela) 1 tab PO DAILY [facility] Last Admin: 04/13/18 10:08 Dose: 1 tab - Labs Labs: 04/13/18 06:30 04/13/18 06:30 - Constitutional Appears: Non-toxic, No Acute Distress - Head Exam Head Exam: ATRAUMATIC, NORMOCEPHALIC - Eye Exam Eye Exam: EOMI, PERRL - ENT Exam ENT Exam: Mucous Membranes Moist - Neck Exam Neck Exam: Full ROM, Normal Inspection - Respiratory Exam Respiratory Exam: Rhonchi (coarse breath sounds b/l). absent: Accessory Muscle Use, Chest Wall Tenderness, Rales, Wheezes, Respiratory Distress, Stridor - Cardiovascular Exam Cardiovascular Exam: REGULAR RHYTHM, RRR, +S1, +S2. absent: Gallop, Rubs, Murmur - GI/Abdominal Exam GI & Abdominal Exam: Soft, Normal Bowel Sounds. absent: Guarding, Tenderness - Extremities Exam Extremities Exam: Normal Inspection. absent: Pedal Edema - Back Exam Back Exam: NORMAL INSPECTION - Neurological Exam Neurological Exam: Alert, Awake, Oriented x3 Neuro motor strength exam: Left Upper Extremity: 5, Right Upper Extremity: 5, Le ft Lower Extremity: 5, Right Lower Extremity: 5 - Psychiatric Exam Psychiatric exam: Normal Affect, Normal Mood - Skin Skin Exam: Dry, Intact, Warm Assessment and Plan - Assessment and Plan (Free Text) Assessment: 77 yo M with PMH of ESRD (T/Th/Sat dialysis), DM2 (last A1c 7.9%), HTN, and prostate CA (s/p radiation) presents with worsening chest congestion, cough, SOB found to have b/l pulmonary edema on CXR. Patient also had an episode of weakness prior to dialysis in which he needed to sit immediately due to leg cramping. TRANSITION MANAGER was subsequently called and patient was evaluated in ED. Plan: Dyspnea May be 2/2 pulmonary edema vs HCAP CXR x 2 showed persistent RUL infiltrate Continue HCAP treatment with cefepime, 2 doses of vanc were also given Positive procal, may be 2/2 underlying PNA vs ESRD ID following, all recs appreciated Systolic CHF with reduced EF TTE completed to rule out new onset CHF Echo found severe TR, severe pulmonary HTN, and LVEF of 43% Not currently hypervolemic on exam, will check BNP Will consult cardiology for possible R heart cath and/or additional recs Persistent B/l LE cramping and weakness May be 2/2 fluid loss from dialysis yesterday vs physical deconditioning Per PT recs, may discharge home with outpatient PT three times per week Continue fall precautions Hyperkalemia/Uremia Hyperkalemia resolved yesterday, has not returned BUN/Cr elevated from yesterday but is currently in dialysis Nephrology following, all recs appreciated HTN Continue home clonidine patch and Coreg Holding parameters established for each home med Continue to monitor BP closely Continue PRN hydralazine DM2 Last A1c 7.9% ISS while admitted Home lantus restarted per nephrology recs Normocytic anemia Most likely 2/2 anemia of chronic renal disease Stable, asymptomatic, continue to monitor DVT/GI PPX: SC heparin/protonix Full Code HHD Monitor on telemetry Patient seen, examined, and plan discussed with my attending Dr. Giancarlo Guzmán D.O. IM Resident PGY-1 Pager: [phone] <Lela Strickland - Last Filed: 04/15/18 17:06> Objective - Vital Signs/Intake and Output Vital Signs (last 24 hours): Temp Pulse Resp BP Pulse Ox 97.8 F 76 18 119/68 97 04/15/18 12:00 04/15/18 16:09 04/15/18 12:00 04/15/18 16:09 04/15/18 06:00 Intake and Output: 04/15/18 04/15/18 06:59 18:59 Intake Total 1340 Output Total 600 Balance 740 - Medications Medications: Current Medications Acetaminophen (Tylenol 325mg Tab) 650 mg PO Q6H PRN PRN Reason: Pain, moderate (4-7) Aspirin (Ecotrin) 81 mg PO DAILY [facility] Last Admin: 04/15/18 13:51 Dose: 81 mg Atorvastatin Calcium (Lipitor) 20 mg PO DAILY [facility] Last Admin: 04/15/18 13:55 Dose: 20 mg Carvedilol (Coreg) 25 mg PO BID [facility] Last Admin: 04/15/18 13:51 Dose: 25 mg Cinacalcet (Sensipar) 60 mg PO BID [facility] Last Admin: 04/15/18 13:49 Dose: 60 mg Clonidine HCl (Catapres-Tts3 0.3 Mg/24 Hr) 1 patch TD Q7D@1000 [facility] Last Admin: 04/12/18 22:39 Dose: 1 patch Heparin Sodium (Porcine) (Heparin) 5,000 units SC Q8 [facility]; Protocol Last Admin: 04/15/18 13:50 Dose: 5,000 units Hydralazine HCl (Apresoline) 10 mg IVP Q6H PRN PRN Reason: Systolic Blood Pressure Last Admin: 04/14/18 00:35 Dose: 10 mg Cefepime HCl (Maxipime 1gm) 1 gm in 100 mls @ 100 mls/hr IVPB Q24H [facility]; Protocol Last Admin: 04/15/18 16:08 Dose: 100 mls/hr Insulin Detemir (Levemir) 8 unit SC HS [facility] Last Admin: 04/14/18 22:15 Dose: 8 units Insulin Human Lispro (Humalog Med) 0 units SC ACHS [facility]; Protocol Last Admin: 04/15/18 16:01 Dose: 8 units Losartan Potassium (Cozaar) 100 mg PO DAILY [facility] Last Admin: 04/15/18 13:55 Dose: 100 mg Terazosin [Hytrin] 4 (Mg (Home Med)) 4 mg PO BID [facility] Last Admin: 04/15/18 13:48 Dose: Not Given Pantoprazole Sodium (Protonix Ec Tab) 40 mg PO 0600 [facility] Last Admin: 04/15/18 05:20 Dose: 40 mg Sevelamer HCl (Renagel) 2,400 mg PO WM [facility] Last Admin: 04/15/18 13:49 Dose: 2,400 mg Sildenafil Citrate (Revatio) 20 mg PO TID [facility] Last Admin: 04/15/18 14:03 Dose: 20 mg Torsemide (Demadex) 50 mg PO BID [facility] Last Admin: 04/15/18 13:50 Dose: 50 mg Verapamil HCl (Calan Sr Tab) 240 mg PO DAILY [facility] Last Admin: 04/15/18 16:09 Dose: 240 mg Vitamin B Complex/Vit C/Folic Acid (Nephro-Pamela) 1 tab PO DAILY [facility] Last Admin: 04/15/18 13:55 Dose: 1 tab - Labs Labs: 04/15/18 07:30 04/15/18 07:30 Attending/Attestation - Attestation I have personally seen and examined this patient.: Yes I have fully participated in the care of the patient.: Yes I have reviewed all pertinent clinical information, including history, physical exam and plan: Yes Notes (Text): Patient seen and examined by me with resident at 11:15 AM on 04/14/18. Case including HPI, physical exam, and assessment and plan discussed with resident. Agree with above with following additions/corrections. Patient is a 77-year-old male with past medical history significant for end- stage renal disease on dialysis Wednesday//Wednesday, insulin-dependent type 2 diabetes, hypertension, and prostate cancer status post radiation that presented to the emergency room with shortness of breath, cough, and bilateral leg weakness. Patient states he is feeling ok. States that shortness of breath is still there, but slowly getting better. Still with cough and chest congestion. States that using the O2 via nasal cannula is helping him breath better. Patient denies any nausea, vomiting, or abdominal pain. No headaches or dizziness. No lightheadedness. No chest pain or palpitations. No diarrhea or constipation. No dysuria. Physical exam: General: Awake and alert sitting up in bed in no acute distress. HEENT: Normocephalic, atraumatic. Extraocular muscles intact, pupils equal and reactive, no scleral icterus. Oropharynx is pink and moist. No pharyngeal erythema or exudate appreciated. Neck is supple. Cardiovascular: Normal rhythm. Normal S1 and S2. No murmurs, rubs, or gallops appreciated Pulmonary: Normal respiratory effort. Decreased breath sounds. Scattered rhonchi. No rales or wheezing appreciated. Gastrointestinal: Soft, nondistended. Nontender. Positive bowel sounds all 4 quadrants. No guarding. Musculoskeletal: Moves all extremities. No calf tenderness. No edema appreciated. Central nervous system: AAOx3, CN 2-12 grossly intact. 5/5 muscle strength all extremities Dermatologic: Skin warm and dry. Assessment and plan: Patient is a 77-year-old male with past medical history significant for end-stage renal disease on dialysis Wednesday//Wednesday, insulin-dependent type 2 diabetes, hypertension, and prostate cancer status post radiation that presented to the emergency room with shortness of breath, cough, and bilateral leg weakness. 1. Dyspnea. Cough. Likely secondary to fluid overload and health care associated pneumonia. Chest x-ray on admission per radiologist shows bilateral infiltrates, right greater than left; possible bilateral pneumonia versus pulmonary edema. Repeat chest x-ray post dialysis per radiologist shows improvement in the vascular and interstitial congestion seen earlier. Patient afebrile. Blood cultures with no growth so far. ID consulted, recommendations appreciated. Continue with Maxipime. Continue with O2 via nasal cannula as needed. 2. Severe pulmonary hypertension. 2-D echo per manager critical care unit showed bi-atrial enlargement, moderate concentric LVH, normal LV systolic function, severe tricuspid regurgitation, moderate mitral regurgitation, severe pulmonary hy pertension. Cardiology consulted, follow-up recommendations. 3. Bilateral lower extremity weakness. Resolved. Per patient, has happened before. 5 out of 5 muscle strength on exam. Continue PT. 4. Hyperkalemia/uremia. Resolved. Vendor Analyst following, recommendations appreciated. 5. End-stage renal disease on dialysis. Vendor Analyst following, recommendations appreciated. Continue HD on //Wed. Continue home Sensipar and Renagel. Continue Nephro-Pamela. 6. Hypertension. Continue on Coreg and Terazosin. Continue Cozaar and torsemide. Continue with clonidine patch. 7. Insulin-dependent type 2 diabetes. Continue insulin sliding scale. Continue levemir 8 units at bedtime. Continue to monitor accu-checks. 8. Anemia likely secondary to chronic disease. Patient asymptomatic. Continue to monitor CBC. H&H stable. 9. Hyperlipidemia. Continue Lipitor. 10. GI/DVT prophylaxis. Protonix/heparin 11. Patient is a full code Case was discussed in detail with the patient regarding current diagnosis and treatment plan. All questions answered.
[2018-04-14 07:17] LABS: BASO # 0.03 K/mm3 (0.0-2.0); BASO % 0.3 % (0.0-3.0); EOS # 0.3 (0.0-0.7); EOS % 2.8 % (1.5-5.0); HEMOGLOBIN 9.8 g/dL (14.0-18.0); LYMPH # 1.5 (1.2-3.4); LYMPH % 13.8 % (22.0-35.0); MEAN CORPUSCULAR HEMOGLOBIN 27.9 pg (25.0-35.0); MEAN PLATELET VOLUME 9.8 fl (7.0-11.0); MONO # 1.7 (0.1-0.6); MONO % 15.3 % (1.0-6.0); RBC 3.51 10^6/uL (3.5-6.1); RED CELL DISTRIBUTION WIDTH 15.4 % (11.5-14.5); WHITE BLOOD COUNT 10.9 10^3/uL (4.5-11.0)
[2018-04-14 07:35] LABS: ALB/GLOB RATIO 1.2 (1.1-1.8); ALBUMIN 3.8 g/dL (3.0-4.8); CALCIUM 7.9 mg/dL (8.4-10.5)
--- NOTE | 2018-04-14 08:29 | CARD ---
APPROVED REPORT Date of service: 04/14/2018 EXAM: Two-dimensional and M-mode echocardiogram with Doppler and color Doppler. INDICATION Congestive Heart Failure 2D DIMENSIONS Left Atrium (2D)4.9 (1.6-4.0cm)IVSd1.7 (0.7-1.1cm) LVDd5.0 (3.9-5.9cm)PWd1.4 (0.7-1.1cm) LVDs3.9 (2.5-4.0cm)FS (%) 21.9 % LVEF (%)43.9 (>50%) M-Mode DIMENSIONS Aortic Root3.80 (2.2-3.7cm)Aortic Cusp Exc.2.00 (1.5-2.0cm) Aortic Valve AoV Peak Ejkxtaob226.0cm/[place] Peak GR.11mmHg Mitral Valve E/A ratio0.0 TDI E/Lateral E'0.0E/Medial E'0.0 Tricuspid Valve TR Peak [id number] [id number] Peak Gr.69mmHg [id number] LEFT VENTRICLE The left ventricle is normal size. There is moderate concentric left ventricular hypertrophy. The left ventricular function is normal. The left ventricular ejection fraction is within the normal range. There is normal LV segmental wall motion. RIGHT VENTRICLE The right ventricle is normal size. The right ventricular systolic function is normal. ATRIA The left atrium is moderately dilated. The right atrium is moderately dilated. The interatrial septum is intact with no evidence for an atrial septal defect. AORTIC VALVE The aortic valve is mildly sclerotic. No aortic regurgitation is present. There is no aortic valvular stenosis. MITRAL VALVE The mitral valve is moderately thickened. Mitral regurgitation is moderate. TRICUSPID VALVE The tricuspid valve is normal in structure. There is severe tricuspid regurgitation. There is severe pulmonary hypertension. PULMONIC VALVE The pulmonary valve is normal in structure. There is mild pulmonic valvular regurgitation. GREAT VESSELS The aortic root is normal in size. Dilated IVC with poor inspiration collapse is consistent with elevated right atrial pressure. PERICARDIAL EFFUSION There is no pleural effusion. There is no pericardial effusion. <Conclusion> Biatrial enlargement. Moderate concentric LVH. Normal LV systolic function. Severe TR. Moderate MR. Mild PI. Severe pulmonary HTN.
[2018-04-14] MEDS: Multivitamin Vitamin B Complex (Nephro-Vite) Tab PO SCH (13:28)
[2018-04-14] MEDS: Cefepime 1gm in NS 100ml 1 GM/100 ML BAG IVPB SCH ×2 (13:29→16:21)
[2018-04-14] MEDS: Insulin Lispro (humaLOG) MEDIUM Coverage SC SCH ×4 (13:35→22:12)
[2018-04-14] MEDS: TERAZOSIN PO SCH (17:23)
--- NOTE | 2018-04-14 18:01 | CP.PCM.PN ---
Subjective - Date & Time of Evaluation Date of Evaluation: 04/14/18 Time of Evaluation: 16:30 - Subjective Subjective: Infectious Disease Follow Up: April 14, 2018 77 year old male with PMH of ESRD (T//Wed dialysis), DM2 (last A1c 7.9%), HTN, and prostate CA (s/p radiation) who presented to ED with complaints of worsening chest congestion and cough productive of yellow sputum for 1 week. Over the past day he developed worsening SOB. He states cough and congestion feel worse when lying down. The dyspnea is worse with exertion and improves with rest. He also complains of worsening b/l leg cramping and had an episode of weakness on his way to dialysis this AM. His was unable to assist him getting to dialysis and he had to sit down in the snow, prompting his evaluation in ED. Currently, he states his SOB is improving but he has stayed mostly in bed. He still states episodes of SOB and wheezing. Objective - Vital Signs/Intake and Output Vital Signs (last 24 hours): Temp Pulse Resp BP Pulse Ox 99.0 F 85 20 142/62 99 04/14/18 05:37 04/14/18 17:19 04/14/18 05:37 04/14/18 17:19 04/14/18 05:37 Intake and Output: 04/14/18 04/14/18 06:59 18:59 Intake Total 600 Output Total 60 Balance 540 - Medications Medications: Current Medications Acetaminophen (Tylenol 325mg Tab) 650 mg PO Q6H PRN PRN Reason: Pain, moderate (4-7) Aspirin (Ecotrin) 81 mg PO DAILY [facility] Last Admin: 04/14/18 13:29 Dose: 81 mg Atorvastatin Calcium (Lipitor) 20 mg PO DAILY [facility] Last Admin: 04/14/18 13:27 Dose: 20 mg Carvedilol (Coreg) 25 mg PO BID [facility] Last Admin: 04/14/18 17:19 Dose: 25 mg Cinacalcet (Sensipar) 60 mg PO BID [facility] Last Admin: 04/14/18 17:21 Dose: 60 mg Clonidine HCl (Catapres-Tts3 0.3 Mg/24 Hr) 1 patch TD Q7D@1000 [facility] Last Admin: 04/12/18 22:39 Dose: 1 patch Heparin Sodium (Porcine) (Heparin) 5,000 units SC Q8 [facility]; Protocol Last Admin: 04/14/18 16:21 Dose: 5,000 units Hydralazine HCl (Apresoline) 10 mg IVP Q6H PRN PRN Reason: Systolic Blood Pressure Last Admin: 04/14/18 00:35 Dose: 10 mg Cefepime HCl (Maxipime 1gm) 1 gm in 100 mls @ 100 mls/hr IVPB Q24H [facility]; Protocol Last Admin: 04/14/18 16:21 Dose: 100 mls/hr Insulin Detemir (Levemir) 8 unit SC HS [facility] Last Admin: 04/13/18 22:05 Dose: Not Given Insulin Human Lispro (Humalog Med) 0 units SC ACHS [facility]; Protocol Last Admin: 04/14/18 17:28 Dose: 1 units Losartan Potassium (Cozaar) 100 mg PO DAILY [facility] Last Admin: 04/14/18 13:29 Dose: 100 mg Terazosin [Hytrin] 4 (Mg (Home Med)) 4 mg PO BID [facility] Last Admin: 04/14/18 17:23 Dose: Not Given Pantoprazole Sodium (Protonix Ec Tab) 40 mg PO 0600 [facility] Last Admin: 04/14/18 05:02 Dose: 40 mg Sevelamer HCl (Renagel) 800 mg PO WM [facility] Last Admin: 04/14/18 17:21 Dose: 800 mg Torsemide (Demadex) 50 mg PO BID [facility] Last Admin: 04/14/18 17:20 Dose: 50 mg Vitamin B Complex/Vit C/Folic Acid (Nephro-Pamela) 1 tab PO DAILY [facility] Last Admin: 04/14/18 13:28 Dose: 1 tab - Labs Labs: 04/14/18 07:05 04/14/18 07:05 - Constitutional Appears: Non-toxic, No Acute Distress, Chronically Ill - Head Exam Head Exam: ATRAUMATIC, NORMOCEPHALIC - Eye Exam Eye Exam: EOMI, PERRL Pupil Exam: NORMAL ACCOMODATION, PERRL - ENT Exam ENT Exam: Mucous Membranes Moist, Normal External Ear Exam, TM's Normal Bilaterally - Neck Exam Neck Exam: Full ROM, Normal Inspection - Respiratory Exam Respiratory Exam: Decreased Breath Sounds (right worse than left.). absent: Rhonchi, Wheezes - Cardiovascular Exam Cardiovascular Exam: REGULAR RHYTHM, RRR, +S1, +S2 - GI/Abdominal Exam GI & Abdominal Exam: Soft, Normal Bowel Sounds. absent: Distended, Tenderness - Extremities Exam Extremities Exam: Full ROM, Normal Inspection - Neurological Exam Neurological Exam: Alert, Awake, CN II-XII Intact, Oriented x3 - Psychiatric Exam Psychiatric exam: Normal Affect, Normal Mood - Skin Skin Exam: Intact, Normal Color Assessment and Plan - Assessment and Plan (Free Text) Assessment: 77 yo male with SOB, cough, and chest congestion. Continuing with Cefepime for antibiotic coverage. Procalcitonin of 3.63 is high and supports findings of pneumonia. Mild leukocytosis but afebrile. Chest X-ray showing bilateral infiltrates with right greater than left. Jiang cultures including sputum should be done. Can monitor procalcitonin values for improvement of pneumonia. Supportive care. Latest procalcitonin up to 19.64. Thank you for allowing me to participate in the care of the patient, we will follow with you.
--- NOTE | 2018-04-14 18:52 | CP.PCM.PN ---
<Kavin Bean Wesly - Last Filed: 04/14/18 18:49> Subjective - Date & Time of Evaluation Date of Evaluation: 04/14/18 Time of Evaluation: 18:49 - Subjective Subjective: Nephrology progress note - Vikas, PGY - 2 Patient was seen and examined at bedside. No new complaints; patient went to dialysis, had 3.5 hrs with 3L net fluid removal via left AVF. Per nurse, patient was stable @ 1215 BP 180/88 HR 82. Objective - Vital Signs/Intake and Output Vital Signs (last 24 hours): Temp Pulse Resp BP Pulse Ox 98 F 78 18 148/62 99 04/14/18 17:59 04/14/18 18:00 04/14/18 17:59 04/14/18 17:59 04/14/18 05:37 Intake and Output: 04/14/18 04/14/18 06:59 18:59 Intake Total 600 Output Total 60 Balance 540 - Medications Medications: Current Medications Acetaminophen (Tylenol 325mg Tab) 650 mg PO Q6H PRN PRN Reason: Pain, moderate (4-7) Aspirin (Ecotrin) 81 mg PO DAILY ON LICENSE OF [facility] Last Admin: 04/14/18 13:29 Dose: 81 mg Atorvastatin Calcium (Lipitor) 20 mg PO DAILY ON LICENSE OF [facility] Last Admin: 04/14/18 13:27 Dose: 20 mg Carvedilol (Coreg) 25 mg PO BID ON LICENSE OF [facility] Last Admin: 04/14/18 17:19 Dose: 25 mg Cinacalcet (Sensipar) 60 mg PO BID ON LICENSE OF [facility] Last Admin: 04/14/18 17:21 Dose: 60 mg Clonidine HCl (Catapres-Tts3 0.3 Mg/24 Hr) 1 patch TD Q7D@1000 ON LICENSE OF [facility] Last Admin: 04/12/18 22:39 Dose: 1 patch Heparin Sodium (Porcine) (Heparin) 5,000 units SC Q8 ON LICENSE OF [facility]; Protocol Last Admin: 04/14/18 16:21 Dose: 5,000 units Hydralazine HCl (Apresoline) 10 mg IVP Q6H PRN PRN Reason: Systolic Blood Pressure Last Admin: 04/14/18 00:35 Dose: 10 mg Cefepime HCl (Maxipime 1gm) 1 gm in 100 mls @ 100 mls/hr IVPB Q24H ON LICENSE OF [facility]; Protocol Last Admin: 04/14/18 16:21 Dose: 100 mls/hr Insulin Detemir (Levemir) 8 unit SC HS ON LICENSE OF [facility] Last Admin: 04/13/18 22:05 Dose: Not Given Insulin Human Lispro (Humalog Med) 0 units SC ACHS ON LICENSE OF [facility]; Protocol Last Admin: 04/14/18 17:28 Dose: 1 units Losartan Potassium (Cozaar) 100 mg PO DAILY ON LICENSE OF [facility] Last Admin: 04/14/18 13:29 Dose: 100 mg Terazosin [Hytrin] 4 (Mg (Home Med)) 4 mg PO BID ON LICENSE OF [facility] Last Admin: 04/14/18 17:23 Dose: Not Given Pantoprazole Sodium (Protonix Ec Tab) 40 mg PO 0600 ON LICENSE OF [facility] Last Admin: 04/14/18 05:02 Dose: 40 mg Sevelamer HCl (Renagel) 800 mg PO WM ON LICENSE OF [facility] Last Admin: 04/14/18 17:21 Dose: 800 mg Torsemide (Demadex) 50 mg PO BID ON LICENSE OF [facility] Last Admin: 04/14/18 17:20 Dose: 50 mg Vitamin B Complex/Vit C/Folic Acid (Nephro-Pamela) 1 tab PO DAILY ON LICENSE OF [facility] Last Admin: 04/14/18 13:28 Dose: 1 tab - Labs Labs: 04/14/18 07:05 04/14/18 07:05 - Constitutional Appears: Well - Head Exam Head Exam: ATRAUMATIC, NORMAL INSPECTION, NORMOCEPHALIC - Eye Exam Eye Exam: EOMI, Normal appearance, PERRL Pupil Exam: NORMAL ACCOMODATION, PERRL - ENT Exam ENT Exam: Mucous Membranes Moist, Normal Exam - Neck Exam Neck Exam: Full ROM, Normal Inspection. absent: Lymphadenopathy - Respiratory Exam Respiratory Exam: Clear to Ausculation Bilateral, NORMAL BREATHING PATTERN - Cardiovascular Exam Cardiovascular Exam: REGULAR RHYTHM, +S1, +S2. absent: Murmur - GI/Abdominal Exam GI & Abdominal Exam: Soft, Normal Bowel Sounds. absent: Tenderness - Exam Bimanual exam: NORMAL BIMANUAL EXAM - Extremities Exam Extremities Exam: absent: Joint Swelling, Pedal Edema Additional comments: bilateral le swelling - Back Exam Back Exam: NORMAL INSPECTION - Neurological Exam Neurological Exam: Alert, Awake, CN II-XII Intact, Normal Gait, Oriented x3 - Psychiatric Exam Psychiatric exam: Normal Affect, Normal Mood - Skin Skin Exam: Dry, Intact, Normal Color, Warm Assessment and Plan - Assessment and Plan (Free Text) Assessment: 77 M with medical history of HTN, CKD, DM2 presented to [facility] with bilateral LE weakness. Once here, patient found to have pneumonia, hyperkalemia, and hype rglycemia. Plan Bilateral pulmonary effusion/infiltrate: Leukocytosis improving. Crackles on exam improving - HD today - Continue with Torsemide - Continue with Cefepime Anemia of CKD - Stable - Aranesp outpatient Chronic Compensated HAGMA - resolved - Continue with HD - Monitor lactic acidosis, improved Hyperglycemia - RISS medium with ACHS FS - Continue to monitor ESRD on HD - Continue with Renvela, Sensipar, Pantera caps - Continue with Torsemide 50 Bone Mineral Disorder of CKD - Continue Sevalemer HTN - Continue with Coreg, Terazosin, Clonidine (home meds) IIDM 2 - RISS medium - FS ACHS <Elio Oconnell - Last Filed: 04/15/18 06:13> Objective - Vital Signs/Intake and Output Vital Signs (last 24 hours): Temp Pulse Resp BP Pulse Ox 98.7 F 73 20 142/76 100 04/15/18 00:01 04/15/18 02:00 04/15/18 00:01 04/15/18 00:01 04/15/18 00:01 Intake and Output: 04/14/18 04/15/18 18:59 06:59 Intake Total 200 1340 Output Total 600 Balance 200 740 - Medications Medications: Current Medications Acetaminophen (Tylenol 325mg Tab) 650 mg PO Q6H PRN PRN Reason: Pain, moderate (4-7) Aspirin (Ecotrin) 81 mg PO DAILY ON [facility] Last Admin: 04/14/18 13:29 Dose: 81 mg Atorvastatin Calcium (Lipitor) 20 mg PO DAILY ON [facility] Last Admin: 04/14/18 13:27 Dose: 20 mg Carvedilol (Coreg) 25 mg PO BID ON [facility] Last Admin: 04/14/18 17:19 Dose: 25 mg Cinacalcet (Sensipar) 60 mg PO BID ON [facility] Last Admin: 04/14/18 17:21 Dose: 60 mg Clonidine HCl (Catapres-Tts3 0.3 Mg/24 Hr) 1 patch TD Q7D@1000 ON LICENSE [facility] Last Admin: 04/12/18 22:39 Dose: 1 patch Heparin Sodium (Porcine) (Heparin) 5,000 units SC Q8 ON LICENSE [facility]; Protocol Last Admin: 04/15/18 05:19 Dose: 5,000 units Hydralazine HCl (Apresoline) 10 mg IVP Q6H PRN PRN Reason: Systolic Blood Pressure Last Admin: 04/14/18 00:35 Dose: 10 mg Cefepime HCl (Maxipime 1gm) 1 gm in 100 mls @ 100 mls/hr IVPB Q24H ON LICENSE OF [facility]; Protocol Last Admin: 04/14/18 16:21 Dose: 100 mls/hr Insulin Detemir (Levemir) 8 unit SC HS ON LICENSE [facility] Last Admin: 04/14/18 22:15 Dose: 8 units Insulin Human Lispro (Humalog Med) 0 units SC ACHS ON LICENSE [facility]; Protocol Last Admin: 04/14/18 22:12 Dose: Not Given Losartan Potassium (Cozaar) 100 mg PO DAILY ON [facility] Last Admin: 04/14/18 13:29 Dose: 100 mg Terazosin [Hytrin] 4 (Mg (Home Med)) 4 mg PO BID ON LICENSE [facility] Last Admin: 04/14/18 17:23 Dose: Not Given Pantoprazole Sodium (Protonix Ec Tab) 40 mg PO 0600 ON LICENSE [facility] Last Admin: 04/15/18 05:20 Dose: 40 mg Sevelamer HCl (Renagel) 800 mg PO WM ON LICENSE [facility] Last Admin: 04/14/18 17:21 Dose: 800 mg Sildenafil Citrate (Revatio) 20 mg PO BID ON LICENSE [facility] Torsemide (Demadex) 50 mg PO BID ON [facility] Last Admin: 04/14/18 17:20 Dose: 50 mg Vitamin B Complex/Vit C/Folic Acid (Nephro-Pamela) 1 tab PO DAILY ON LICENSE OF [facility] Last Admin: 04/14/18 13:28 Dose: 1 tab - Labs Labs: 04/14/18 07:05 04/14/18 07:05 Attending/Attestation - Attestation I have personally seen and examined this patient.: Yes I have fully participated in the care of the patient.: Yes I have reviewed all pertinent clinical information, including history, physical exam and plan: Yes Notes (Text): Patient seen and examined; I agree with the resident's note as above with the following additions/edits: Patient with htn, DM, and ESRD on HD, admitted with PNA, found to have worsened pulmonary htn on repeat echo; Seen on HD, tolerating UF well; stable electrolyte status; appears euvolemic on exam although still concern for volume overload given echo findings; HTN of ESRD; BP much better controlled after HD treatment today despite patient not receiving 2 of his home anti-htn agents (verapamil and cardura), likely indicates that patient needs better volume control with UF on HD and diuretics; will continue current anti-htn regimen; Cardiology input appreciated; patient for stress test tomorrow; started on revatio, no renal dose adjustment needed; On cefepime for PNA, dosed for ESRD; CKD mineral bone disorder, continue renvela 3 tabs w/ meals; continue sensipar 60 mg bid; Anemia of CKD, hgb just below goal, will give dose of aranesp as needed;
--- NOTE | 2018-04-14 21:59 | CON ---
DATE: 04/14/2018 CARDIOLOGY CONSULTATION REASON FOR CONSULTATION AND FOLLOWUP: Cardiac evaluation, admitted with generalized weakness, shortness of breath, pulmonary hypertension, end-stage renal disease on dialysis, and history of diabetes. BRIEF CLINICAL HISTORY: This is a 77-year-old male with past medical history significant for end-stage renal disease on dialysis secondary to diabetes as well as hypertension. History of diabetes for many years, history of hypertension, history of prostate CA status post radiation, came to the emergency room because of worsening feel of congestion even after dialysis patient felt congested. The patient lives in [place] but works in [place], so the patient get dialysis three times a day Wednesday, , and Wednesday and to drive him here at [facility] for dialysis and then pick him up, though they live [facility]. Denies any chest pain, but complains of recently more tiredness and shortness of breath. PAST MEDICAL HISTORY: Significant for end-stage renal disease on dialysis for year and half. Wednesday, , Wednesday. History of diabetes, history of hypertension, according to him diabetes and hypertension ruins his kidney. History of prostate CA status post radiation. PAST SURGICAL HISTORY: Significant for AV fistula for dialysis. HOME MEDICATIONS: Currently the patient is taking at home; Renvela, Sensipar, Atorvastatin 20 mg daily, baby aspirin, insulin, Carvedilol 25 mg daily, multivitamin, torsemide and clonidine. PREVIOUS CARDIAC WORKUP FOLLOWS: The patient had a stress test done on 09/24/2016, that shows normal myocardial perfusion study, ejection fraction 51%, borderline EF. At that time the patient had echocardiography also done on 09/24/2016, that showed normal LV function, no segmental wall motion abnormality, mild tricuspid regurgitation, calculated ejection fraction was 70% and RVSP 42 mmHg. The patient had repeat echo done today that showed bilateral atrial enlargement, moderate concentric LVH and normal LV systolic function, severe tricuspid regurgitation, moderate MR, mild PI, severe pulmonary hypertension, RV systolic pressure calculated 79 mmHg. REVIEW OF SYSTEMS: As per HPI. PHYSICAL EXAMINATION: VITAL SIGNS: Height of the patient 5 feet 9 inches, weight of the patient 140 pounds, body mass index 20.7 kg/m2. Rest of the vitals temperature afebrile, heart rate 78, and blood pressure 142/62. HEENT: PERRLA. Extraocular muscles intact. NECK: Supple. No carotid bruit or thyromegaly. CHEST: Clear to auscultation. HEART: S1 and S2 regular. ABDOMEN: Soft. EXTREMITIES: Clubbing and cyanosis, negative. LABORATORY DATA: Blood workup as follows; WBC 10.9, hemoglobin 9.8, hematocrit 31.6, and platelet count 199. Chemistry shows sodium 134, potassium 4.6, chloride 93, carbon dioxide 23, anion gap 22, BUN 73, creatinine 8.6. TSH 1.42. Triglyceride 120, total cholesterol 96, LDL 36, HDL 24. EKG shows normal sinus, first-degree AV block, nonspecific ST-T changes noted. IMPRESSION: This 77-year-old male with past medical history significant for diabetes, hypertension for many years status post end-stage renal disease on dialysis for year and half on dialysis Wednesday, , and Wednesday. History of prostate carcinoma status post radiation year and a half ago, the patient had normal stress test, complained with generalized weakness more progressively worsening shortness of breath and increase in tricuspid valve regurgitation as well as pulmonary hypertension, though still preserved left ventricular function, needs to rule out underlying coronary artery disease. RECOMMENDATIONS: We will get stress test tomorrow, Lexiscan to assess any ischemia and we will start low dose Revatio for pulmonary hypertension. We will follow with you. Thank you Dr. Strickland for providing the opportunity in taking care of the patient, Kevin Humphrey. Philip Lawson MD
[2018-04-14] MEDS: Insulin Detemir 100 units/ml Vial (Levemir) SC SCH (22:15)
[2018-04-15] MEDS: Pantoprazole 40 mg EC Tab PO SCH (05:20)
[2018-04-15 08:07] LABS: BASO # 0.02 K/mm3 (0.0-2.0); BASO % 0.2 % (0.0-3.0); EOS # 0.7 (0.0-0.7); EOS % 7.7 % (1.5-5.0); HEMOGLOBIN 9.7 g/dL (14.0-18.0); LYMPH # 1.2 (1.2-3.4); LYMPH % 12.3 % (22.0-35.0); MEAN CELL VOLUME 90.9 fl (80.0-105.0); MEAN CORPUSCULAR HEMOGLOBIN 27.5 pg (25.0-35.0); MEAN CORPUSCULAR HGB CONC 30.2 g/dl (31.0-37.0); MEAN PLATELET VOLUME 9.7 fl (7.0-11.0); MONO # 1.5 (0.1-0.6); MONO % 16.2 % (1.0-6.0); RBC 3.53 10^6/uL (3.5-6.1); RED CELL DISTRIBUTION WIDTH 15.1 % (11.5-14.5); WHITE BLOOD COUNT 9.5 10^3/uL (4.5-11.0)
[2018-04-15 08:24] LABS: ALB/GLOB RATIO 1.1 (1.1-1.8); ALBUMIN 3.8 g/dL (3.0-4.8); CALCIUM 7.6 mg/dL (8.4-10.5)
[2018-04-15] MEDS ORDERED: Aminophylline 25 mg/ml Inj ONE (09:42)
[2018-04-15] MEDS ORDERED: Sildenafil 20 MG TAB PO SCH (10:00)
--- NOTE | 2018-04-15 10:49 | CP.PCM.PN ---
<Luke Guzmán - Last Filed: 04/15/18 16:09> Subjective - Date & Time of Evaluation Date of Evaluation: 04/15/18 Time of Evaluation: 10:48 - Subjective Subjective: Luke Guzmán DO, PGY-1 Hospitalist Progress Note for Dr. Giancarlo Strickland Patient was seen and examined at bedside this AM. He reports feeling better this morning; his cough and SOB have both improved. He is s/p luisa-scan stress test. Objective - Vital Signs/Intake and Output Vital Signs (last 24 hours): Temp Pulse Resp BP Pulse Ox 98.4 F 71 20 161/97 H 97 04/15/18 06:00 04/15/18 06:00 04/15/18 06:00 04/15/18 06:00 04/15/18 06:00 Intake and Output: 04/15/18 04/15/18 06:59 18:59 Intake Total 1340 Output Total 600 Balance 740 - Medications Medications: Current Medications Acetaminophen (Tylenol 325mg Tab) 650 mg PO Q6H PRN PRN Reason: Pain, moderate (4-7) Aspirin (Ecotrin) 81 mg PO DAILY [facility] Last Admin: 04/14/18 13:29 Dose: 81 mg Atorvastatin Calcium (Lipitor) 20 mg PO DAILY [facility] Last Admin: 04/14/18 13:27 Dose: 20 mg Carvedilol (Coreg) 25 mg PO BID [facility] Last Admin: 04/14/18 17:19 Dose: 25 mg Cinacalcet (Sensipar) 60 mg PO BID [facility] Last Admin: 04/14/18 17:21 Dose: 60 mg Clonidine HCl (Catapres-Tts3 0.3 Mg/24 Hr) 1 patch TD Q7D@1000 [facility] Last Admin: 04/12/18 22:39 Dose: 1 patch Heparin Sodium (Porcine) (Heparin) 5,000 units SC Q8 [facility]; Protocol Last Admin: 04/15/18 05:19 Dose: 5,000 units Hydralazine HCl (Apresoline) 10 mg IVP Q6H PRN PRN Reason: Systolic Blood Pressure Last Admin: 04/14/18 00:35 Dose: 10 mg Cefepime HCl (Maxipime 1gm) 1 gm in 100 mls @ 100 mls/hr IVPB Q24H [facility]; Protocol Last Admin: 04/14/18 16:21 Dose: 100 mls/hr Insulin Detemir (Levemir) 8 unit SC HS [facility] Last Admin: 04/14/18 22:15 Dose: 8 units Insulin Human Lispro (Humalog Med) 0 units SC [facility]; Protocol Last Admin: 04/14/18 22:12 Dose: Not Given Losartan Potassium (Cozaar) 100 mg PO DAILY [facility] Last Admin: 04/14/18 13:29 Dose: 100 mg Terazosin [Hytrin] 4 (Mg (Home Med)) 4 mg PO BID [facility] Last Admin: 04/14/18 17:23 Dose: Not Given Pantoprazole Sodium (Protonix Ec Tab) 40 mg PO 0600 [facility] Last Admin: 04/15/18 05:20 Dose: 40 mg Sevelamer HCl (Renagel) 2,400 mg PO WM [facility] Sildenafil Citrate (Revatio) 20 mg PO TID [facility] Torsemide (Demadex) 50 mg PO BID [facility] Last Admin: 04/14/18 17:20 Dose: 50 mg Vitamin B Complex/Vit C/Folic Acid (Nephro-Pamela) 1 tab PO DAILY [facility] Last Admin: 04/14/18 13:28 Dose: 1 tab - Labs Labs: 04/15/18 07:30 04/15/18 07:30 - Constitutional Appears: Non-toxic, No Acute Distress - Head Exam Head Exam: ATRAUMATIC, NORMOCEPHALIC - Eye Exam Eye Exam: EOMI - ENT Exam ENT Exam: Mucous Membranes Moist - Neck Exam Neck Exam: Full ROM, Normal Inspection - Respiratory Exam Respiratory Exam: Rhonchi (improved from prior exams). absent: Accessory Muscle Use, Chest Wall Tenderness, Rales, Wheezes, Respiratory Distress - Cardiovascular Exam Cardiovascular Exam: REGULAR RHYTHM, RRR, +S1, +S2. absent: Gallop, Rubs, Murmur - GI/Abdominal Exam GI & Abdominal Exam: Soft, Normal Bowel Sounds. absent: Guarding, Tenderness - Extremities Exam Extremities Exam: Normal Inspection. absent: Pedal Edema - Neurological Exam Neurological Exam: Alert, Awake, Oriented x3 - Psychiatric Exam Psychiatric exam: Normal Affect, Normal Mood - Skin Skin Exam: Dry, Intact, Warm Assessment and Plan - Assessment and Plan (Free Text) Assessment: 77 yo M with PMH of ESRD (T//Sat dialysis), DM2 (last A1c 7.9%), HTN, and prostate CA (s/p radiation) presents with worsening chest congestion, cough, SOB found to have b/l pulmonary edema on CXR. Patient also had an episode of weakness prior to dialysis in which he needed to sit immediately due to leg cramping. [employer] was subsequently called and patient was evaluated in ED. Plan: Dyspnea May be 2/2 pulmonary edema vs HCAP CXR x 2 showed persistent RUL infiltrate Continue HCAP treatment with cefepime, 2 doses of vanc were also given Positive procal, may be 2/2 underlying PNA vs ESRD ID following, all recs appreciated Systolic CHF with reduced EF TTE completed to rule out new onset CHF Echo found severe TR, severe pulmonary HTN, and LVEF of 43% Now s/p stress test, official read pending Persistent B/l LE cramping and weakness Appears to have resolved Patient states weakness has improved and he has been ambulating regularly Continue PT, encourage regular ambulation with nursing staff Continue fall precautions Hyperkalemia/Uremia Hyperkalemia resolved with dialysis sessions BUN/Cr at baseline Nephrology following, all recs appreciated HTN Continue home clonidine patch and Coreg Holding parameters established for each home med Continue to monitor BP closely Continue PRN hydralazine DM2 Last A1c 7.9% ISS while admitted Home lantus restarted per nephrology recs Normocytic anemia Most likely 2/2 anemia of chronic renal disease Stable, asymptomatic, continue to monitor DVT/GI PPX: SC heparin/protonix Full Code HHD Monitor on telemetry Patient seen, examined, and plan discussed with my attending Dr. Giancarlo Guzmán D.O. IM Resident PGY-1 Pager: [phone] <Lela Strickland R - Last Filed: 04/15/18 17:33> Objective - Vital Signs/Intake and Output Vital Signs (last 24 hours): Temp Pulse Resp BP Pulse Ox 97.8 F 76 18 119/68 97 04/15/18 12:00 04/15/18 16:09 04/15/18 12:00 04/15/18 16:09 04/15/18 06:00 Intake and Output: 04/15/18 04/15/18 06:59 18:59 Intake Total 1340 Output Total 600 Balance 740 - Medications Medications: Current Medications Acetaminophen (Tylenol 325mg Tab) 650 mg PO Q6H PRN PRN Reason: Pain, moderate (4-7) Aspirin (Ecotrin) 81 mg PO DAILY [facility] Last Admin: 04/15/18 13:51 Dose: 81 mg Atorvastatin Calcium (Lipitor) 20 mg PO DAILY [facility] Last Admin: 04/15/18 13:55 Dose: 20 mg Carvedilol (Coreg) 25 mg PO BID [facility] Last Admin: 04/15/18 13:51 Dose: 25 mg Cinacalcet (Sensipar) 60 mg PO BID [facility] Last Admin: 04/15/18 13:49 Dose: 60 mg Clonidine HCl (Catapres-Tts3 0.3 Mg/24 Hr) 1 patch TD Q7D@1000 [facility] Last Admin: 04/12/18 22:39 Dose: 1 patch Heparin Sodium (Porcine) (Heparin) 5,000 units SC Q8 [facility]; Protocol Last Admin: 04/15/18 13:50 Dose: 5,000 units Hydralazine HCl (Apresoline) 10 mg IVP Q6H PRN PRN Reason: Systolic Blood Pressure Last Admin: 04/14/18 00:35 Dose: 10 mg Cefepime HCl (Maxipime 1gm) 1 gm in 100 mls @ 100 mls/hr IVPB Q24H [facility]; [place] [facility] Last Admin: 04/15/18 16:08 Dose: 100 mls/hr Insulin Detemir (Levemir) 8 unit SC HS [facility] Last Admin: 04/14/18 22:15 Dose: 8 units Insulin Human Lispro (Humalog Med) 0 units SC ACHS [facility]; Protocol Last Admin: 04/15/18 16:01 Dose: 8 units Losartan Potassium (Cozaar) 100 mg PO DAILY [facility] Last Admin: 04/15/18 13:55 Dose: 100 mg Terazosin [Hytrin] 4 (Mg (Home Med)) 4 mg PO BID [facility] Last Admin: 04/15/18 13:48 Dose: Not Given Pantoprazole Sodium (Protonix Ec Tab) 40 mg PO 0600 [facility] Last Admin: 04/15/18 05:20 Dose: 40 mg Sevelamer HCl (Renagel) 2,400 mg PO WM [facility] Last Admin: 04/15/18 13:49 Dose: 2,400 mg Sildenafil Citrate (Revatio) 20 mg PO TID [facility] Last Admin: 04/15/18 14:03 Dose: 20 mg Torsemide (Demadex) 50 mg PO BID [facility] Last Admin: 04/15/18 13:50 Dose: 50 mg Verapamil HCl (Calan Sr Tab) 240 mg PO DAILY [facility] Last Admin: 04/15/18 16:09 Dose: 240 mg Vitamin B Complex/Vit C/Folic Acid (Nephro-Pamela) 1 tab PO DAILY [facility] Last Admin: 04/15/18 13:55 Dose: 1 tab - Labs Labs: 04/15/18 07:30 04/15/18 07:30 Attending/Attestation - Attestation I have personally seen and examined this patient.: Yes I have fully participated in the care of the patient.: Yes I have reviewed all pertinent clinical information, including history, physical exam and plan: Yes Notes (Text): Patient seen and examined by me with resident at 3PM on 04/15/18. Case including HPI, physical exam, and assessment and plan discussed with resident. Agree with above with following additions/corrections. Patient is a 77-year-old male with past medical history significant for end- stage renal disease on dialysis Wednesday//Wednesday, insulin-dependent ty pe 2 diabetes, hypertension, and prostate cancer status post radiation that presented to the emergency room with shortness of breath, cough, and bilateral leg weakness. Patient states he feels ok. Patient is feeling sleepy. States he is unsure how stress test went. Shortness of breath has improved but still with cough and some chest congestion. States that using the O2 via nasal cannula is helping him breath better. Patient denies any nausea, vomiting, or abdominal pain. No headaches or dizziness. No lightheadedness. No chest pain or palpitations. No diarrhea or constipation. No dysuria. Patient is asking to ambulate with physical therapy. Physical exam: General: Awake and alert sitting up in bed in no acute distress. HEENT: Normocephalic, atraumatic. Extraocular muscles intact, pupils equal and reactive, no scleral icterus. Oropharynx is pink and moist. No pharyngeal erythema or exudate appreciated. Neck is supple. Cardiovascular: Normal rhythm. Normal S1 and S2. No murmurs, rubs, or gallops appreciated Pulmonary: Normal respiratory effort. Improved breath sounds. No rhonchi, rales, or wheezing appreciated. Gastrointestinal: Soft, nondistended. Nontender. Positive bowel sounds all 4 quadrants. No guarding. Musculoskeletal: Moves all extremities. No calf tenderness. No edema appreciated. Central nervous system: AAOx3, CN 2-12 grossly intact. Dermatologic: Skin warm and dry. Assessment and plan: Patient is a 77-year-old male with past medical history significant for end-stage renal disease on dialysis Wednesday//Wednesday, insulin-dependent type 2 diabetes, hypertension, and prostate cancer status post radiation that presented to the emergency room with shortness of breath, cough, and bilateral leg weakness. 1. Abnormal stress test. Stress test showed abnormal SPECT myocardial perfusion study, no discrete perfusion abdnormality, moderate LV dysfunction with diffuse hypokinesis. Learning And Development Associate following, recommendations appreciated. Patient likely for cardiac cath on 04/18/18. Continue ASA, Lipitor, Coreg. 2. Dyspnea. Cough. Likely secondary to fluid overload and health care associated pneumonia. Improving. Continue with Maxipime. Continue with O2 via nasal cannula as needed. Chest x-ray on admission per radiologist shows bilateral infiltrates, right greater than left; possible bilateral pneumonia versus pulmonary edema. Repeat chest x-ray post dialysis per radiologist shows improvement in the vascular and interstitial congestion seen earlier. Patient afebrile. Blood cultures with no growth so far. ID consulted, recommendations appreciated. 3. Severe pulmonary hypertension. 2-D echo per calibrator barometers showed biatrial enlargement, moderate concentric LVH, normal LV systolic function, severe tricuspid regurg, moderate mitral regurg, severe pulmonary hypertension. Cardiology following, recommendations aprpeciated. Started on Revatio. Explained to patient in detail that he should not take this medication on dialysis days. 4. Bilateral lower extremity weakness. Resolved. Per patient, has happened before. 5 out of 5 muscle strength on exam. Continue PT. 5. Hyperkalemia/uremia. Resolved. Coffee Blender following, recommendations appreciated. 6. End-stage renal disease on dialysis. Coffee Blender following, recommendations appreciated. Continue HD on //Wed. Continue home Sensipar and Renagel. Continue Nephro-Pamela. 7. Hypertension. Continue on Coreg and Terazosin. Continue Cozaar and torsemide. Continue with clonidine patch. 8. Insulin-dependent type 2 diabetes. Continue insulin sliding scale. Continue levemir 8 units at bedtime. Continue to monitor accuchecks. 9. Anemia likely secondary to chronic disease. Patient asymptomatic. Continue to monitor CBC. H&H stable. 10. Hyperlipidemia. Continue Lipitor. 11. GI/DVT prophylaxis. Protonix/heparin 12. Patient is a full code Case was discussed in detail with the patient regarding current diagnosis and treatment plan. All questions answered.
--- NOTE | 2018-04-15 11:42 | PN ---
DATE: 04/15/2018 REASON FOR CONSULTATION AND FOLLOWUP: Cardiac evaluation, admitted with generalized weakness, shortness of breath, pulmonary hypertension, end-stage renal disease on dialysis, and history of diabetes. SUBJECTIVE: The patient denies any chest pain, shortness of breath, or any palpitation. OBJECTIVE: GENERAL: Not in apparent distress. VITAL SIGNS: Temperature afebrile, heart rate 71, blood pressure 142/76. HEENT: PERRLA. Extraocular muscles intact. NECK: Supple. No carotid bruit or thyromegaly. CHEST: Clear to auscultation. HEART: S1 and S2 regular. ABDOMEN: Soft. EXTREMITIES: Clubbing and cyanosis negative. LABORATORY DATA: Blood workup, WBC 10.5, hemoglobin 10.5 , hematocrit 32.1, and platelet count 201. Chemistry shows sodium 130, potassium 4.7, chloride 97, carbon dioxide 28, anion gap of 15, BUN 50, creatinine 6.1. Echo, the patient had an echocardiography done yesterday that revealed pulmonary hypertension, RV systolic pressure 79, normal LV systolic function, severe tricuspid regurgitation, moderate mitral regurgitation, mild PI. IMPRESSION: A 77-year-old male with past medical history significant for diabetes; hypertension many years ago, history of prostate carcinoma; history of end-stage renal disease, on dialysis, since one and a half years ago being dialyzed in [place]. 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 Admitted him with shortness of breath, history of pulmonary hypertension. A year ago, the patient had pulmonary hypertension, around 50s, RV systolic pressure is currently 42, now the PA pressure is up to 79. RECOMMENDATIONS: Get a stress test rule out any coronary ischemia. We will start Revatio 20 mg p.o. b.i.d., and if tolerated, will increase to 20 mg p.o. t.i.d., hold the day of the dialysis as mentioned and hold for systolic blood pressure. We will follow with you. We will get stress test, further recommendation after the stress test. Thank you Dr. Strickland for providing the opportunity in taking care of the patient, Kevin Humphrey. Philip Lawson MD LAURYN
[2018-04-15] MEDS: Insulin Lispro (humaLOG) MEDIUM Coverage SC SCH ×4 (13:47→21:53)
[2018-04-15] MEDS: TERAZOSIN PO SCH (13:48)
[2018-04-15] MEDS: Multivitamin Vitamin B Complex (Nephro-Vite) Tab PO SCH (13:55)
[2018-04-15] MEDS: Sildenafil 20 MG TAB PO SCH ×3 (14:02→17:47)
[2018-04-15] MEDS: Cefepime 1gm in NS 100ml 1 GM/100 ML BAG IVPB SCH (16:08)
[2018-04-15] MEDS: Verapamil 240 mg ER Tab PO SCH (16:09)
--- NOTE | 2018-04-15 16:35 | CP.PCM.PN ---
<Kavin Bean - Last Filed: 04/15/18 17:45> Subjective - Date & Time of Evaluation Date of Evaluation: 04/15/18 Time of Evaluation: 16:24 - Subjective Subjective: Nephrology progress note - Vikas, PGY - 2 Patient seen and examined at bedside. No acute overnight events, patient was seen in dialysis this morning. Patient denies any complaints right now. Patient blood pressure has been stable Objective - Vital Signs/Intake and Output Vital Signs (last 24 hours): Temp Pulse Resp BP Pulse Ox 97.8 F 76 18 119/68 97 04/15/18 12:00 04/15/18 16:09 04/15/18 12:00 04/15/18 16:09 04/15/18 06:00 Intake and Output: 04/15/18 04/15/18 06:59 18:59 Intake Total 1340 Output Total 600 Balance 740 - Medications Medications: Current Medications Acetaminophen (Tylenol 325mg Tab) 650 mg PO Q6H PRN PRN Reason: Pain, moderate (4-7) Aspirin (Ecotrin) 81 mg PO DAILY [facility] Last Admin: 04/15/18 13:51 Dose: 81 mg Atorvastatin Calcium (Lipitor) 20 mg PO DAILY [facility] Last Admin: 04/15/18 13:55 Dose: 20 mg Carvedilol (Coreg) 25 mg PO BID [facility] Last Admin: 04/15/18 13:51 Dose: 25 mg Cinacalcet (Sensipar) 60 mg PO BID [facility] Last Admin: 04/15/18 13:49 Dose: 60 mg Clonidine HCl (Catapres-Tts3 0.3 Mg/24 Hr) 1 patch TD Q7D@1000 [facility] Last Admin: 04/12/18 22:39 Dose: 1 patch Heparin Sodium (Porcine) (Heparin) 5,000 units SC Q8 [facility]; Protocol Last Admin: 04/15/18 13:50 Dose: 5,000 units Hydralazine HCl (Apresoline) 10 mg IVP Q6H PRN PRN Reason: Systolic Blood Pressure Last Admin: 04/14/18 00:35 Dose: 10 mg Cefepime HCl (Maxipime 1gm) 1 gm in 100 mls @ 100 mls/hr IVPB Q24H [facility]; Protocol Last Admin: 04/15/18 16:08 Dose: 100 mls/hr Insulin Detemir (Levemir) 8 unit SC [facility] Last Admin: 04/14/18 22:15 Dose: 8 units Insulin Human Lispro (Humalog Med) 0 units SC [facility]; Protocol Last Admin: 04/15/18 16:01 Dose: 8 units Losartan Potassium (Cozaar) 100 mg PO DAILY [facility] Last Admin: 04/15/18 13:55 Dose: 100 mg Terazosin [Hytrin] 4 (Mg (Home Med)) 4 mg PO BID [facility] Last Admin: 04/15/18 13:48 Dose: Not Given Pantoprazole Sodium (Protonix Ec Tab) 40 mg PO 0600 [facility] Last Admin: 04/15/18 05:20 Dose: 40 mg Sevelamer HCl (Renagel) 2,400 mg PO WM [facility] Last Admin: 04/15/18 13:49 Dose: 2,400 mg Sildenafil Citrate (Revatio) 20 mg PO TID [facility] Last Admin: 04/15/18 14:03 Dose: 20 mg Torsemide (Demadex) 50 mg PO BID [facility] Last Admin: 04/15/18 13:50 Dose: 50 mg Verapamil HCl (Calan Sr Tab) 240 mg PO DAILY [facility] Last Admin: 04/15/18 16:09 Dose: 240 mg Vitamin B Complex/Vit C/Folic Acid (Nephro-Pamela) 1 tab PO DAILY [facility] Last Admin: 04/15/18 13:55 Dose: 1 tab - Labs Labs: 04/15/18 07:30 04/15/18 07:30 - Constitutional Appears: Well - Head Exam Head Exam: ATRAUMATIC, NORMAL INSPECTION, NORMOCEPHALIC - Eye Exam Eye Exam: EOMI, Normal appearance, PERRL Pupil Exam: NORMAL ACCOMODATION, PERRL - ENT Exam ENT Exam: Mucous Membranes Moist, Normal Exam - Neck Exam Neck Exam: Full ROM, Normal Inspection. absent: Lymphadenopathy - Respiratory Exam Respiratory Exam: Clear to Ausculation Bilateral, NORMAL BREATHING PATTERN - Cardiovascular Exam Cardiovascular Exam: REGULAR RHYTHM, +S1, +S2. absent: Murmur - GI/Abdominal Exam GI & Abdominal Exam: Soft, Normal Bowel Sounds. absent: Tenderness - Extremities Exam Extremities Exam: Full ROM, Normal Capillary Refill, Normal Inspection. absent: Joint Swelling, Pedal Edema - Back Exam Back Exam: NORMAL INSPECTION - Neurological Exam Neurological Exam: Alert, Awake, CN II-XII Intact, Normal Gait, Oriented x3 - Psychiatric Exam Psychiatric exam: Normal Affect, Normal Mood - Skin Skin Exam: Dry, Intact, Normal Color, Warm Assessment and Plan - Assessment and Plan (Free Text) Assessment: 77 M with medical history of HTN, CKD, DM2 presented to [facility] with bilateral LE weakness. Once here, patient found to have pneumonia, hyperkalemia, and hyperglycemia. Plan Bilateral pulmonary effusion/infiltrate: Leukocytosis continues to improve. Crackles on exam improving - HD yesterday, 3L taken off - Continue with Torsemide - Continue with Cefepime Pulmonary HTN - Cardiology on consult - Stress test today Anemia of CKD - Stable - Aranesp outpatient Chronic Compensated HAGMA - resolved - Continue with HD - Monitor lactic acidosis, improved Hyperglycemia - RISS medium with ACHS FS - Continue to monitor ESRD on HD - Continue with Renvela, Sensipar, Pantera caps - Continue with Torsemide 50 Bone Mineral Disorder of CKD - Continue Sevalemer HTN - Continue with Coreg, Terazosin, Clonidine (home meds) IIDM 2 - RISS medium - FS ACHS <Elio Oconnell - Last Filed: 04/16/18 08:05> Objective - Vital Signs/Intake and Output Vital Signs (last 24 hours): Temp Pulse Resp BP Pulse Ox 98.0 F 73 19 174/88 H 99 04/16/18 06:00 04/16/18 06:00 04/16/18 06:00 04/16/18 06:00 04/16/18 06:00 Intake and Output: 04/16/18 04/16/18 06:59 18:59 Intake Total 1260 Output Total 600 Balance 660 - Medications Medications: Current Medications Acetaminophen (Tylenol 325mg Tab) 650 mg PO Q6H PRN PRN Reason: Pain, moderate (4-7) Aspirin (Ecotrin) 81 mg PO DAILY [facility] Last Admin: 04/15/18 13:51 Dose: 81 mg Atorvastatin Calcium (Lipitor) 20 mg PO DAILY [facility] Last Admin: 04/15/18 13:55 Dose: 20 mg Carvedilol (Coreg) 25 mg PO BID [facility] Last Admin: 04/15/18 17:45 Dose: 25 mg Cinacalcet (Sensipar) 60 mg PO BID [facility] Last Admin: 04/15/18 17:46 Dose: 60 mg Clonidine HCl (Catapres-Tts3 0.3 Mg/24 Hr) 1 patch TD Q7D@1000 [facility] Last Admin: 04/12/18 22:39 Dose: 1 patch Clopidogrel Bisulfate (Plavix) 75 mg PO DAILY [facility] Heparin Sodium (Porcine) (Heparin) 5,000 units SC Q8 [facility]; Protocol Last Admin: 04/16/18 05:12 Dose: 5,000 units Hydralazine HCl (Apresoline) 10 mg IVP Q6H PRN PRN Reason: Systolic Blood Pressure Last Admin: 04/14/18 00:35 Dose: 10 mg Cefepime HCl (Maxipime 1gm) 1 gm in 100 mls @ 100 mls/hr IVPB Q24H [facility]; Protocol Last Admin: 04/15/18 16:08 Dose: 100 mls/hr Insulin Detemir (Levemir) 8 unit SC HS [facility] Last Admin: 04/15/18 21:58 Dose: 8 units Insulin Human Lispro (Humalog Med) 0 units SC ACHS [facility]; Protocol Last Admin: 04/15/18 21:53 Dose: Not Given Losartan Potassium (Cozaar) 100 mg PO DAILY [facility] Last Admin: 04/15/18 13:55 Dose: 100 mg Terazosin [Hytrin] 4 (Mg (Home Med)) 4 mg PO BID [facility] Last Admin: 04/15/18 13:48 Dose: Not Given Pantoprazole Sodium (Protonix Ec Tab) 40 mg PO 0600 [facility] Last Admin: 04/16/18 05:12 Dose: 40 mg Sevelamer HCl (Renagel) 2,400 mg PO WM [facility] Last Admin: 04/15/18 17:46 Dose: 2,400 mg Sildenafil Citrate (Revatio) 20 mg PO TID [facility] Last Admin: 04/15/18 17:47 Dose: 20 mg Torsemide (Demadex) 50 mg PO BID [facility] Last Admin: 04/15/18 17:47 Dose: 50 mg Verapamil HCl (Calan Sr Tab) 240 mg PO DAILY [facility] Last Admin: 04/15/18 16:09 Dose: 240 mg Vitamin B Complex/Vit C/Folic Acid (Nephro-Pamela) 1 tab PO DAILY [facility] Last Admin: 04/15/18 13:55 Dose: 1 tab - Labs Labs: 04/15/18 07:30 04/15/18 07:30 Attending/Attestation - Attestation I have personally seen and examined this patient.: Yes I have fully participated in the care of the patient.: Yes I have reviewed all pertinent clinical information, including history, physical exam and plan: Yes Notes (Text): Patient seen and examined; I agree with the resident's note as above with the following additions/edits: Patient with htn, dm, and ESRD on HD, admitted with PNA; Still with coarse breath sounds; hypoxia improved; still question of whether patient has component of volume overload with high R sided pressure per echo despite not having edema on exam; Abnormal stress test noted today; cardiac cath being planned, will f/u; may benefit from R heart cath as well, will discuss with cardio; HTN of ESRD; BP still elevated; home med of verapamil 240 mg restarted (was on it twice daily); home med terazosin still not available; will continue with diuretics; Otherwise stable electrolyte status; next HD for tomorrow per routine; On cefepime for PNA, dosed for ESRD.
--- NOTE | 2018-04-15 16:35 | CP.PCM.PCO ---
Physician Communication Note - Physician Communication Note Physician Communication Note: pt.still short of breath,checking O2 sat on room air prior
--- NOTE | 2018-04-15 16:36 | CARD ---
APPROVED REPORT Date of service: 04/15/2018 Protocol: LEXISCAN Test Type: Lexiscan Sestamibi Stress Test Attending Physician: Dr. Philip Marsh Referring Physician: Dr. Lela Strickland Test Indications: Chest Pain Height:5 ft 7 in Weight:140lbs Medications: Tylenol, Ecotrin, Lipitor, Coreg Maxipime, Sensipar, Catapres, Heparin Apresoline, Levimer, Humalog,Hytrin Protonix, Renagel, Revatio, Demadex Nephro Pamela Medical History: 77 year old male with a history of diabetes, HTN, high cholesterol, prostate cancer, renal failure, hemodialysis, anemia , arthritis Target HR: 144 bpm Resting ECG: RSR. LVH. Poor R Progression V1-V3. Non Specific ST_T Change Resting Heart Rate: 67 bpm Resting Blood Pressure: 144/84mmHg Submaximum (85%): 122 bpm PROCEDURE Pharmacologic stress testing was performed using 0.4mg per 5ml of regadenoson given intravenously over 7-10 seconds. POST EXERCISE Reason for Termination: Protocol completed Target HR: No Max HR: 68 bpm 59% of Maximum Predicted HR: 144 bpm Exercise duration: 00:30 min:sec, 0 Stage Exercise capacity: 1.0METs Max Blood Pressure: 150/80mmHg Blood Pressure response to exercise: resting hypertension - appropriate response Heart Rate response to exercise: appropriate Chest Pain: Yes, Tightness Across Chest. Angina index: 0 Arrhythmia: No, none ST Change: Yes, No Additional ST_T Changes. Deviation: 0 mm INTERPRETATION Stress EKG Conclusion: IV LEXISCAN NUCLEAR STRESS TEST DURING WHICH PATIENT FELT TIGHTNESS IN CHEST. COMPARED TO RESTING EKG NO ADDITIONAL ST-T CHANGES SEEN, NUCLEAR SCAN REPORT PENDING. Signed by Philip Marsh Electronically Approved: 04/15/2018 11:33:49 EXAM: Myocardial Perfusion REST/STRESS Stress Test Type: Pharmacologic Imaging Protocol Rest Spect myocardial perfusion imaging was performed in supine position 48 minutes following the injection of 10.5 mCi of Tc-99 Myoview. At peak stress, the patient was injected intravenously with 30.4mCi of Tc-99 tetrofosmin after an infusion time of minutes and 10 seconds. Gated Stress Spect was performed 64 minutes after intravenous Tc-99 Myoview injection. The images were gated to evaluate regional wall motion and calculate ventricular ejection fraction.Images were reconstructed using backfilter projection method in short horizontal and verticle long axis. Spect slices were generated. LV Perfusion The quality of the study is good. The left ventricle is moderatley enlarged in size with thickened myocardium. The right ventricle is unremarkable. The lung uptake is within normal limits. The distribution of tracer reveals moderately and diffusely decreased perfusion in the apical inferior lafleur on the stress study. The remainder of the LV myocardium is unremarkable. The rest myocardial perfusion study shows no significant change. Wall Motion Wall motion study shows diffuse hypokinesis of the left ventricle. LVEF = 32%. Conclusion 1. Abnormal SPECT myocardial perfusion study. 2. There is no dicrete perufsion abnormality. 3. Moderate LV dysfunction with diffuse hypokinesis. 4. The above findings are suggestive of cardiomyopathy. 5. In comparison with the last study of 09.24.2016, these changes appear new.
--- NOTE | 2018-04-15 19:40 | CP.PCM.PN ---
Subjective - Date & Time of Evaluation Date of Evaluation: 04/15/18 Time of Evaluation: 17:30 - Subjective Subjective: Infectious Disease Follow Up: April 15, 2018 77 year old male with PMH of ESRD (T//Wed dialysis), DM2 (last A1c 7.9%), HTN, and prostate CA (s/p radiation) who presented to ED with complaints of worsening chest congestion and cough productive of yellow sputum for 1 week. Over the past day he developed worsening SOB. He states cough and congestion feel worse when lying down. The dyspnea is worse with exertion and improves with rest. He also complains of worsening b/l leg cramping and had an episode of weakness on his way to dialysis this AM. His was unable to assist him getting to dialysis and he had to sit down in the snow, prompting his evaluation in ED. Currently, he states his SOB is improving but he has stayed mostly in bed. He still states episodes of SOB and wheezing. Procalcitonin was elevated compared to the prior check. Objective - Vital Signs/Intake and Output Vital Signs (last 24 hours): Temp Pulse Resp BP Pulse Ox 97.9 F 71 18 147/75 97 04/15/18 18:00 04/15/18 18:00 04/15/18 18:00 04/15/18 18:00 04/15/18 18:00 Intake and Output: 04/15/18 04/16/18 18:59 06:59 Intake Total 960 Output Total 600 Balance 360 - Medications Medications: Current Medications Acetaminophen (Tylenol 325mg Tab) 650 mg PO Q6H PRN PRN Reason: Pain, moderate (4-7) Aspirin (Ecotrin) 81 mg PO DAILY [facility] Last Admin: 04/15/18 13:51 Dose: 81 mg Atorvastatin Calcium (Lipitor) 20 mg PO DAILY [facility] Last Admin: 04/15/18 13:55 Dose: 20 mg Carvedilol (Coreg) 25 mg PO BID [facility] Last Admin: 04/15/18 17:45 Dose: 25 mg Cinacalcet (Sensipar) 60 mg PO BID [facility] Last Admin: 04/15/18 17:46 Dose: 60 mg Clonidine HCl (Catapres-Tts3 0.3 Mg/24 Hr) 1 patch TD Q7D@1000 [facility] Last Admin: 04/12/18 22:39 Dose: 1 patch Clopidogrel Bisulfate (Plavix) 75 mg PO DAILY [facility] Heparin Sodium (Porcine) (Heparin) 5,000 units SC Q8 [facility]; Protocol Last Admin: 04/15/18 13:50 Dose: 5,000 units Hydralazine HCl (Apresoline) 10 mg IVP Q6H PRN PRN Reason: Systolic Blood Pressure Last Admin: 04/14/18 00:35 Dose: 10 mg Cefepime HCl (Maxipime 1gm) 1 gm in 100 mls @ 100 mls/hr IVPB Q24H [facility]; Protocol Last Admin: 04/15/18 16:08 Dose: 100 mls/hr Insulin Detemir (Levemir) 8 unit SC HS [facility] Last Admin: 04/14/18 22:15 Dose: 8 units Insulin Human Lispro (Humalog Med) 0 units SC ACHS [facility]; Protocol Last Admin: 04/15/18 17:49 Dose: 5 units Losartan Potassium (Cozaar) 100 mg PO DAILY [facility] Last Admin: 04/15/18 13:55 Dose: 100 mg Terazosin [Hytrin] 4 (Mg (Home Med)) 4 mg PO BID [facility] Last Admin: 04/15/18 13:48 Dose: Not Given Pantoprazole Sodium (Protonix Ec Tab) 40 mg PO 0600 [facility] Last Admin: 04/15/18 05:20 Dose: 40 mg Sevelamer HCl (Renagel) 2,400 mg PO WM [facility] Last Admin: 04/15/18 17:46 Dose: 2,400 mg Sildenafil Citrate (Revatio) 20 mg PO TID [facility] Last Admin: 04/15/18 17:47 Dose: 20 mg Torsemide (Demadex) 50 mg PO BID [facility] Last Admin: 04/15/18 17:47 Dose: 50 mg Verapamil HCl (Calan Sr Tab) 240 mg PO DAILY [facility] Last Admin: 04/15/18 16:09 Dose: 240 mg Vitamin B Complex/Vit C/Folic Acid (Nephro-Pamela) 1 tab PO DAILY [facility] Last Admin: 04/15/18 13:55 Dose: 1 tab - Labs Labs: 04/15/18 07:30 04/15/18 07:30 - Constitutional Appears: Non-toxic, No Acute Distress, Chronically Ill - Head Exam Head Exam: ATRAUMATIC, NORMOCEPHALIC - Eye Exam Eye Exam: EOMI, PERRL Pupil Exam: NORMAL ACCOMODATION, PERRL - ENT Exam ENT Exam: Mucous Membranes Moist, Normal External Ear Exam, TM's Normal Bilaterally - Neck Exam Neck Exam: Full ROM, Normal Inspection - Respiratory Exam Respiratory Exam: Decreased Breath Sounds, NORMAL BREATHING PATTERN. absent: Rales, Rhonchi, Wheezes - Cardiovascular Exam Cardiovascular Exam: REGULAR RHYTHM, RRR, +S1, +S2 - GI/Abdominal Exam GI & Abdominal Exam: Soft, Normal Bowel Sounds. absent: Distended, Tenderness - Extremities Exam Extremities Exam: Full ROM, Normal Inspection - Neurological Exam Neurological Exam: Alert, Awake, CN II-XII Intact, Oriented x3 - Psychiatric Exam Psychiatric exam: Normal Affect, Normal Mood - Skin Skin Exam: Intact, Normal Color Assessment and Plan - Assessment and Plan (Free Text) Assessment: 77 yo male with SOB, cough, and chest congestion. Continuing with Cefepime for antibiotic coverage. Procalcitonin of 3.63 is high and supports findings of pneumonia. Mild leukocytosis but afebrile. Chest X-ray showing bilateral infiltrates with right greater than left. Jiang cultures including sputum should be done. Can monitor procalcitonin values for improvement of pneumonia. Supportive care. Latest procalcitonin up to 19.64. Recheck procalcitonin. Still with SOB. Thank you for allowing me to participate in the care of the patient, we will follow with you.
[2018-04-15] MEDS: Insulin Detemir 100 units/ml Vial (Levemir) SC SCH (21:58)
[2018-04-16] MEDS: Pantoprazole 40 mg EC Tab PO SCH (05:12)
[2018-04-16 06:37] VITALS: O2SAT 99
[2018-04-16] MEDS: Insulin Lispro (humaLOG) MEDIUM Coverage SC SCH ×2 (08:00→13:07)
[2018-04-16 08:35] LABS: BASO # 0.02 K/mm3 (0.0-2.0); BASO % 0.2 % (0.0-3.0); EOS # 1.2 (0.0-0.7); EOS % 10.9 % (1.5-5.0); HEMOGLOBIN 9.6 g/dL (14.0-18.0); LYMPH # 1.4 (1.2-3.4); LYMPH % 12.8 % (22.0-35.0); MEAN CELL VOLUME 88.6 fl (80.0-105.0); MEAN CORPUSCULAR HEMOGLOBIN 27.4 pg (25.0-35.0); MEAN PLATELET VOLUME 9.9 fl (7.0-11.0); MONO # 1.3 (0.1-0.6); MONO % 11.9 % (1.0-6.0); RBC 3.5 10^6/uL (3.5-6.1); RED CELL DISTRIBUTION WIDTH 15.3 % (11.5-14.5); WHITE BLOOD COUNT 10.5 10^3/uL (4.5-11.0)
[2018-04-16 09:20] LABS: ALB/GLOB RATIO 1.2 (1.1-1.8); ALBUMIN 4.1 g/dL (3.0-4.8); CALCIUM 7.7 mg/dL (8.4-10.5)
[2018-04-16] MEDS: Verapamil 240 mg ER Tab PO SCH (13:04)
[2018-04-16] MEDS: Multivitamin Vitamin B Complex (Nephro-Vite) Tab PO SCH (13:08)
[2018-04-16] MEDS: Sildenafil 20 MG TAB PO SCH (13:10)
[2018-04-16 13:14] VITALS: BP 157/85; PULSE 94
--- NOTE | 2018-04-16 13:54 | CP.PCM.DIS ---
Provider - Provider Date of Admission: 04/12/18 13:25 Attending physician: Lela Strickland DO Consults: 04/12/18 14:31 Physician Consult Routine Comment: Consulting Provider: Elio Oconnell Consulting Physician: Elio Oconnell Reason for Consult: dialysis, known to Dr. Oconnell 04/12/18 21:52 Inpatient [employer] Core Measures Referral Routine Comment: PNA Physician Instructions: Reason For Exam: EVALUATION Transition In Care/Readmission Reduction Routine Comment: Physician Instructions: Reason For Exam: EVALUATION 04/12/18 21:54 Social Work Referral Routine Comment: DISCHARGE PLANNING TO HOME Physician Instructions: Reason For Exam: EVALUATION 04/13/18 09:32 Infectious Disease Consult Routine Comment: Consulting Provider: Kamar Murphy Consulting Physician: Kamar Murphy Reason for Consult: pne 04/14/18 14:04 Cardiology Consult Routine Comment: Consulting Provider: Philip Lawson Consulting Physician: Philip Lawson Reason for Consult: severe pulmonary HTN 04/15/18 16:27 TCU [Evaluation for TRCU] Routine Comment: Physician Instructions: Reason For Exam: weakness, deconditioned Time Spent in preparation of Discharge (in minutes): 50 Hospital Course - Lab Results Lab Results: Micro Results 04/12/18 12:20 Blood-Venous Blood Culture - Preliminary NO GROWTH AFTER 4 DAYS 04/12/18 12:00 Blood-Venous Blood Culture - Preliminary NO GROWTH AFTER 4 DAYS 04/13/18 18:30 Urine Random Urine Culture - Final Gram Positive Cocci Most Recent Lab Values WBC 10.5 10^3/uL (4.5-11.0) 04/16/18 08:26 RBC 3.50 10^6/uL (3.5-6.1) 04/16/18 08:26 Hgb 9.6 g/dL (14.0-18.0) L 04/16/18 08:26 Hct 31.0 % (42.0-52.0) L 04/16/18 08:26 MCV 88.6 fl (80.0-105.0) 04/16/18 08:26 MCH 27.4 pg (25.0-35.0) 04/16/18 08:26 MCHC 31.0 g/dl (31.0-37.0) 04/16/18 08:26 RDW 15.3 % (11.5-14.5) H 04/16/18 08:26 Plt Count 228 10^3/uL (120.0-450.0) 04/16/18 08:26 MPV 9.9 fl (7.0-11.0) 04/16/18 08:26 Neut % (Auto) 64.2 % (50.0-68.0) 04/16/18 08:26 Lymph % (Auto) 12.8 % (22.0-35.0) L 04/16/18 08:26 Prowers % (Auto) 11.9 % (1.0-6.0) H 04/16/18 08:26 Eos % (Auto) 10.9 % (1.5-5.0) H 04/16/18 08:26 Baso % (Auto) 0.2 % (0.0-3.0) 04/16/18 08:26 Lymph # (Auto) 1.4 (1.2-3.4) 04/16/18 08:26 Prowers # (Auto) 1.3 (0.1-0.6) H 04/16/18 08:26 Eos # (Auto) 1.2 (0.0-0.7) H 04/16/18 08:26 Baso # (Auto) 0.02 K/mm3 (0.0-2.0) 04/16/18 08:26 Absolute Neuts (auto) 6.75 (1.4-6.5) H 04/16/18 08:26 pO2 29 mm/Hg (30-55) L 04/12/18 19:20 VBG pH 7.45 (7.32-7.43) H 04/12/18 19:20 VBG pCO2 42.0 (40-60) 04/12/18 19:20 VBG HCO3 29.2 mmol/l (21-28) H 04/12/18 19:20 VBG Total CO2 30.5 mmol.L (22-28) H 04/12/18 19:20 VBG O2 Sat (Calc) 62.5 % (40-65) 04/12/18 19:20 VBG Base Excess 4.7 mmol/L (0.0-2.0) H 04/12/18 19:20 VBG Potassium 4.7 mmol/L (3.6-5.2) 04/12/18 19:20 Sodium 135.0 mmol/L (132-148) 04/12/18 19:20 Chloride 94.0 mmol/L (98-107) L 04/12/18 19:20 Glucose 179 mg/dl (75-110) H 04/12/18 19:20 Lactate 2.5 mmol/L (0.7-2.1) H 04/12/18 19:20 FiO2 21.0 % 04/12/18 19:20 Crit Value Called To Britt curtis 04/12/18 19:20 Crit Value Called By Atc 04/12/18 19:20 Blood Gas Notified Time 193904/12/18 19:20 Sodium 133 mmol/L (132-148) 04/16/18 08:26 Potassium 4.8 mmol/L (3.6-5.0) 04/16/18 08:26 Chloride 96 mmol/L (98-107) L 04/16/18 08:26 Carbon Dioxide 21 mmol/L (21-33) 04/16/18 08:26 Anion Gap 21 (10-20) H 04/16/18 08:26 BUN 79 mg/dL (7-21) H 04/16/18 08:26 Creatinine 8.6 mg/dl (0.8-1.5) H* D 04/16/18 08:26 Est GFR ( Amer) 7 04/16/18 08:26 Est GFR (Non-Af Amer) 6 04/16/18 08:26 POC Glucose (mg/dL) 202 mg/dL (65-110) H 04/16/18 12:52 Random Glucose 276 mg/dL (70-110) H 04/16/18 08:26 Hemoglobin A1c 6.6 % (4.2-6.5) H 04/13/18 06:30 Lactic Acid 1.0 mmol/L (0.7-2.1) 04/13/18 06:30 Calcium 7.7 mg/dL (8.4-10.5) L 04/16/18 08:26 Phosphorus 4.0 mg/dL (2.5-4.5) 04/13/18 06:30 Magnesium 2.4 mg/dL (1.7-2.2) H 04/13/18 06:30 Total Bilirubin 0.6 mg/dL (0.2-1.3) 04/16/18 08:26 AST 52 U/L (17-59) 04/16/18 08:26 ALT 64 U/L (7-56) H 04/16/18 08:26 Alkaline Phosphatase 121 U/L (38-126) 04/16/18 08:26 Troponin I 0.05 ng/mL 04/12/18 12:00 Total Protein 7.6 g/dL (5.8-8.3) 04/16/18 08:26 Albumin 4.1 g/dL (3.0-4.8) 04/16/18 08:26 Globulin 3.5 gm/dL 04/16/18 08:26 Albumin/Globulin Ratio 1.2 (1.1-1.8) 04/16/18 08:26 Triglycerides 120 mg/dL (35-160) 04/13/18 06:30 Cholesterol 96 mg/dL (130-200) L 04/13/18 06:30 LDL Cholesterol Direct 36 mg/dL (0-129) 04/13/18 06:30 HDL Cholesterol 24 mg/dL (29-60) L 04/13/18 06:30 Procalcitonin 8.72 NG/ML (0.19-0.49) H 04/16/18 07:00 TSH 3rd Generation 1.42 mIU/mL (0.46-4.68) 04/13/18 06:30 Venous Blood Potassium 4.7 mmol/L (3.6-5.2) 04/12/18 19:20 Urine Color Yellow (YELLOW) 04/13/18 18:30 Urine Appearance Clear (CLEAR) 04/13/18 18:30 Urine pH 7.0 (4.7-8.0) 04/13/18 18:30 Ur Specific Palm 1.020 (1.005-1.035) 04/13/18 18:30 Urine Protein >=300 mg/dL (<30 mg/dL) H 04/13/18 18:30 Urine Glucose (UA) 250 mg/dL (NEGATIVE) H 04/13/18 18:30 Urine Ketones Negative mg/dL (NEGATIVE) 04/13/18 18:30 Urine Blood Trace-intact (NEGATIVE) H 04/13/18 18:30 Urine Nitrate Negative (NEGATIVE) 04/13/18 18:30 Urine Bilirubin Negative (NEGATIVE) 04/13/18 18:30 Urine Urobilinogen 0.2 E.U./dL (<1 E.U./dL) 04/13/18 18:30 Ur Leukocyte Esterase Negative Spencer/uL (NEGATIVE) 04/13/18 18:30 Urine RBC 0 - 2 /hpf (0-2) 04/13/18 18:30 Urine WBC 0 - 2 /hpf (0-6) 04/13/18 18:30 Ur Epithelial Cells None /hpf (0-5) 04/13/18 18:30 Urine Bacteria Small /hpf (NONE) 04/13/18 18:30 Hep Bs Antigen Negative (NEGATIVE) 04/12/18 19:20 Hep Bs Antibody, Quant 236 mIU/mL (>or=10) 04/12/18 19:20 Hep B Core Total Ab Non reactive (Non Reactive) 04/12/18 19:20 Hepatitis C Antibody Negative (NEGATIVE) 04/12/18 19:20 Influenza Typ A,B (EIA) Negative for flu a/b (NEGATIVE) 04/14/18 22:26 - Hospital Course Hospital Course: 77 year old male with PMH of ESRD (T//Wed dialysis), DM2 (last A1c 7.9%), HTN, and prostate CA (s/p radiation) who presented to ED with worsening chest congestion, SOB and cough productive of yellow sputum for the past week. He reported bilateral lower extremity weakness on his way to outpatient dialysis. He states that the cough and congestion feel worse when he is lying down. The dyspnea is worse with exertion and improves with rest. The dyspnea was most likely due to fluid overload vs HCAP. Chest x-ray on admission showed bilateral infiltrates, right greater than left; possible bilateral pneumonia versus pulmonary edema. Repeat chest x-ray post dialysis showed improvement in the vascular and interstitial congestion seen earlier. Blood cultures with no growth so far. ID was consulted, all recommendations appreciated. Patient was started on antibiotics. 2-D echo showed biatrial enlargement, moderate concentric LVH, normal LV systolic function, severe tricuspid regurg, moderate mitral regurg, severe pulmonary hypertension. Cardiology consulted. They recommended to started on Revatio. Explained to patient in detail that he should not take this medication on dialysis days. Cardiology also recommended stress test, which was abnormal with no dicrete perfusion abnormalities. Due to patients risk factors cardiology offered cardiac cath however patient and family opted for medical management and outpatient cardiac cath. Physical therapy was consulted for leg weakness, they recommended discharge home with service. Nephrology was consulted for hemodialysis. Home HTN medications were continued. All other home medications were continued. cardiac cath was discussed with patient and his however they opted for medical management. Patient was discharged with p rescription for antibiotics. Hospital course and discharge plan was discussed in detail with patient and his at bedside. All questions answered. Discharge Exam - Additional Findings Additional findings: - Constitutional Appears: Non-toxic, No Acute Distress - Head Exam Head Exam: ATRAUMATIC, NORMOCEPHALIC - Eye Exam Eye Exam: EOMI - ENT Exam ENT Exam: Mucous Membranes Moist - Neck Exam Neck Exam: Full ROM, Normal Inspection - Respiratory Exam Respiratory Exam: Rhonchi (mild). absent: Accessory Muscle Use, Chest Wall Tenderness, Rales, Wheezes, Respiratory Distress - Cardiovascular Exam Cardiovascular Exam: REGULAR RHYTHM, RRR, +S1, +S2. absent: Gallop, Rubs, Murmur - GI/Abdominal Exam GI & Abdominal Exam: Soft, Normal Bowel Sounds. absent: Guarding, Tenderness - Extremities Exam Extremities Exam: Normal Inspection. absent: Pedal Edema - Neurological Exam Neurological Exam: Alert, Awake, Oriented x3 - Psychiatric Exam Psychiatric exam: Normal Affect, Normal Mood - Skin Skin Exam: Dry, Intact, Warm Discharge Plan - Discharge Medications Prescriptions: Cephalexin [cephalexin] 500 mg PO TID #21 cap Sildenafil [Revatio] 20 mg PO TID #14 tab - Follow Up Plan Condition: GUARDED Disposition: HOME/ ROUTINE Instructions: Hospital-Acquired Pneumonia, Pneumonia, Adult (DC), Community-A cquired Pneumonia in Adults Additional Instructions: Please follow up with your primary medical doctor, Dr. Oconnell, within 3-5 days of discharge. We have started you on a new medicine, Revatio (Sildenafil), for pulmonary hypertension found on the ultrasound of your heart. DO NOT TAKE THIS MEDICATION ON THE DAYS THAT YOU GO TO DIALYSIS. Continue your home medications and make sure to take Aspirin 81mg daily. Prescription for antibiotics, Keflex, was given for 7 days, please complete the course Please follow up with your skin former , Dr. Oconnell, within 1 week. Please follow up with middle school history teacher, Dr. Lawson, within 5-7 days of discharge for outpatient cardiac catheterization and follow up for your heart, your stress test was abnormal Please continue to take your other home medications as previously prescribed. If any of your symptoms return or worsen, please return to nearest ED. Referrals: Philip Lawson MD [Staff Provider] - Elio Oconnell MD [Family Provider] -
--- NOTE | 2018-04-16 14:22 | CP.PCM.PN ---
Subjective - Date & Time of Evaluation Date of Evaluation: 04/16/18 Time of Evaluation: 11:30 - Subjective Subjective: Patient seen on HD, reports breathing well; urinating well; ambulated yesterday; Objective - Vital Signs/Intake and Output Vital Signs (last 24 hours): Temp Pulse Resp BP Pulse Ox 98.0 F 94 H 19 157/85 H 99 04/16/18 06:00 04/16/18 13:08 04/16/18 06:00 04/16/18 13:08 04/16/18 06:00 Intake and Output: 04/16/18 04/16/18 06:59 18:59 Intake Total 1260 Output Total 600 Balance 660 - Medications Medications: Current Medications Acetaminophen (Tylenol 325mg Tab) 650 mg PO Q6H PRN PRN Reason: Pain, moderate (4-7) Aspirin (Ecotrin) 81 mg PO DAILY [facility] Last Admin: 04/16/18 13:06 Dose: 81 mg Atorvastatin Calcium (Lipitor) 20 mg PO DAILY [facility] Last Admin: 04/16/18 13:07 Dose: 20 mg Carvedilol (Coreg) 25 mg PO BID [facility] Last Admin: 04/16/18 13:05 Dose: 25 mg Cinacalcet (Sensipar) 60 mg PO BID [facility] Last Admin: 04/16/18 13:09 Dose: 60 mg Clonidine HCl (Catapres-Tts3 0.3 Mg/24 Hr) 1 patch TD Q7D@1000 [facility] Last Admin: 04/12/18 22:39 Dose: 1 patch Clopidogrel Bisulfate (Plavix) 75 mg PO DAILY [facility] Last Admin: 04/16/18 13:08 Dose: 75 mg Heparin Sodium (Porcine) (Heparin) 5,000 units SC Q8 [facility]; Protocol Last Admin: 04/16/18 13:06 Dose: 5,000 units Hydralazine HCl (Apresoline) 10 mg IVP Q6H PRN PRN Reason: Systolic Blood Pressure Last Admin: 04/14/18 00:35 Dose: 10 mg Cefepime HCl (Maxipime 1gm) 1 gm in 100 mls @ 100 mls/hr IVPB Q24H [facility]; Protocol Last Admin: 04/15/18 16:08 Dose: 100 mls/hr Insulin Detemir (Levemir) 8 unit SC HS [facility] Last Admin: 04/15/18 21:58 Dose: 8 units Insulin Human Lispro (Humalog Med) 0 units SC ACHS [facility]; Protocol Last Admin: 04/16/18 13:07 Dose: 3 units Losartan Potassium (Cozaar) 100 mg PO DAILY [facility] Last Admin: 04/16/18 13:05 Dose: 100 mg Terazosin [Hytrin] 4 (Mg (Home Med)) 4 mg PO BID [facility] Last Admin: 04/15/18 13:48 Dose: Not Given Pantoprazole Sodium (Protonix Ec Tab) 40 mg PO 0600 [facility] Last Admin: 04/16/18 05:12 Dose: 40 mg Sevelamer HCl (Renagel) 2,400 mg PO WM [facility] Last Admin: 04/16/18 13:08 Dose: 2,400 mg Sildenafil Citrate (Revatio) 20 mg PO TID [facility] Last Admin: 04/16/18 13:10 Dose: 20 mg Torsemide (Demadex) 50 mg PO BID [facility] Last Admin: 04/16/18 13:05 Dose: 50 mg Verapamil HCl (Calan Sr Tab) 240 mg PO DAILY [facility] Last Admin: 04/16/18 13:04 Dose: 240 mg Vitamin B Complex/Vit C/Folic Acid (Nephro-Pamela) 1 tab PO DAILY [facility] Last Admin: 04/16/18 13:08 Dose: 1 tab - Labs Labs: 04/16/18 08:26 04/16/18 08:26 - Constitutional Appears: Non-toxic, No Acute Distress - Eye Exam Eye Exam: Normal appearance. absent: Scleral icterus - Respiratory Exam Respiratory Exam: absent: Respiratory Distress Additional comments: b/l rales, much more extensive on L; - Cardiovascular Exam Cardiovascular Exam: RRR, +S1, +S2 - GI/Abdominal Exam GI & Abdominal Exam: Soft. absent: Distended, Tenderness - Extremities Exam Additional comments: no leg edema; - Neurological Exam Neurological Exam: Alert, Awake - Psychiatric Exam Psychiatric exam: Normal Affect, Normal Mood. absent: Agitated - Skin Skin Exam: Warm. absent: Cyanosis Assessment and Plan (1) ESRD on hemodialysis Assessment & Plan: Stable volume and electrolyte status; tolerating UF well on HD today; will aim to keep euvolemic; patient counseled on fluid/salt restriction, especially in light of pulm htn finding; -next HD for Wednesday per routine as outpatient; Status: Acute (2) Hypertensive CKD, ESRD on dialysis Assessment & Plan: BP still elevated, improving with UF on HD; will continue home meds; patient instructed to call us to review home meds as he's unsure regarding some of them; Status: Acute (3) Pulmonary HTN Assessment & Plan: Started on sildenafil; will benefit from RHC, will discuss with cardio; Status: Acute (4) Anemia in CKD (chronic kidney disease) Assessment & Plan: Hgb below goal, will re-dose long acting EPO formulation as outpatient; Status: Acute (5) Chronic kidney disease-mineral and bone disorder Assessment & Plan: Continue sevalamer and sensipar; Status: Chronic (6) Pneumonia Assessment & Plan: Patient to be discharged on PO keflex; will monitor for improvement as outpatient; Status: Acute (7) Abnormal stress test Assessment & Plan: Cardiology recommending cardiac cath, patient refusing at this time and wants to think about it for later; patient advised to f/u closely with cardio; Status: Acute
[2018-04-16 14:36] VITALS: RESP 20; TEMP 97.9
--- NOTE | 2018-04-16 19:16 | CP.PCM.PN ---
Subjective - Date & Time of Evaluation Date of Evaluation: 04/16/18 Time of Evaluation: 14:15 - Subjective Subjective: Infectious Disease Follow Up: April 16, 2018 77 year old male with PMH of ESRD (T//Wed dialysis), DM2 (last A1c 7.9%), HTN, and prostate CA (s/p radiation) who presented to ED with complaints of worsening chest congestion and cough productive of yellow sputum for 1 week. Over the past day he developed worsening SOB. He states cough and congestion feel worse when lying down. The dyspnea is worse with exertion and improves with rest. He also complains of worsening b/l leg cramping and had an episode of weakness on his way to dialysis this AM. His was unable to assist him getting to dialysis and he had to sit down in the snow, prompting his evaluation in ED. Currently, he states his SOB is improving but he has stayed mostly in bed. He still states episodes of SOB and wheezing. Procalcitonin was repeated and is showing 8.72 now. Objective - Vital Signs/Intake and Output Vital Signs (last 24 hours): Temp Pulse Resp BP Pulse Ox 97.9 F 94 H 20 157/85 H 99 04/16/18 12:00 04/16/18 13:08 04/16/18 12:00 04/16/18 13:08 04/16/18 06:00 - Labs Labs: 04/16/18 08:26 04/16/18 08:26 - Constitutional Appears: Non-toxic, No Acute Distress, Chronically Ill - Head Exam Head Exam: ATRAUMATIC, NORMOCEPHALIC - Eye Exam Eye Exam: EOMI, PERRL Pupil Exam: NORMAL ACCOMODATION, PERRL - ENT Exam ENT Exam: Mucous Membranes Moist, Normal External Ear Exam, TM's Normal Bilaterally - Neck Exam Neck Exam: Full ROM, Normal Inspection - Respiratory Exam Respiratory Exam: Decreased Breath Sounds, NORMAL BREATHING PATTERN. absent: Rales, Rhonchi, Wheezes - Cardiovascular Exam Cardiovascular Exam: REGULAR RHYTHM, RRR, +S1, +S2 - GI/Abdominal Exam GI & Abdominal Exam: Soft, Normal Bowel Sounds. absent: Distended, Tenderness - Extremities Exam Extremities Exam: Full ROM, Normal Inspection - Neurological Exam Neurological Exam: Alert, Awake, CN II-XII Intact, Oriented x3 - Psychiatric Exam Psychiatric exam: Normal Affect, Normal Mood - Skin Skin Exam: Intact, Normal Color Assessment and Plan - Assessment and Plan (Free Text) Assessment: 77 yo male with SOB, cough, and chest congestion. Continuing with Cefepime for antibiotic coverage. Procalcitonin of 3.63 is high and supports findings of pneumonia. Mild leukocytosis but afebrile. Chest X-ray showing bilateral infiltrates with right greater than left. Jiang cultures including sputum should be done. Can monitor procalcitonin values for improvement of pneumonia. Supportive care. Latest procalcitonin up to 19.64 which now improved to 8.72. Recheck procalcitonin. Still with SOB. Thank you for allowing me to participate in the care of the patient, we will follow with you.
== END 2018-04-16 14:38 | disposition home or self-care (01) | DRG 193 ==
LOC: ED 12:03 → ERH 13:25 → 2RSO 19:20
PROVIDERS: ADMIT Internal Medicine; ATTEND Hospitalist
PROC: 5A1D70Z Performance of Urinary Filtration, Intermittent, Less than 6 Hours Per Day (ICD-10-PCS; principal; 2018-04-12)
PROC: 5A1D70Z Performance of Urinary Filtration, Intermittent, Less than 6 Hours Per Day (ICD-10-PCS; 2018-04-14)
PROC: 5A1D70Z Performance of Urinary Filtration, Intermittent, Less than 6 Hours Per Day (ICD-10-PCS; 2018-04-16)
DX: J18.9 Pneumonia, unspecified organism (principal); N18.6 End stage renal disease; E87.2 Acidosis; I50.32 Chronic diastolic (congestive) heart failure; I13.2 Hypertensive heart and chronic kidney disease with heart failure and with stage 5 chronic kidney disease, or end stage renal disease; E87.70 Fluid overload, unspecified; E11.22 Type 2 diabetes mellitus with diabetic chronic kidney disease; E11.65 Type 2 diabetes mellitus with hyperglycemia; E87.5 Hyperkalemia; E11.21 Type 2 diabetes mellitus with diabetic nephropathy; D63.1 Anemia in chronic kidney disease; Z92.3 Personal history of irradiation; Z99.2 Dependence on renal dialysis; Z85.46 Personal history of malignant neoplasm of prostate; I27.20 Pulmonary hypertension, unspecified; E78.5 Hyperlipidemia, unspecified; I08.1 Rheumatic disorders of both mitral and tricuspid valves; I44.0 Atrioventricular block, first degree; I45.81 Long QT syndrome; M89.9 Disorder of bone, unspecified; R09.02 Hypoxemia; Y95 Nosocomial condition; Z79.4 Long term (current) use of insulin; Z79.82 Long term (current) use of aspirin; Z79.899 Other long term (current) drug therapy; Z82.49 Family history of ischemic heart disease and other diseases of the circulatory system; Z87.891 Personal history of nicotine dependence

== ENCOUNTER 2018-05-05 06:04 | Day surgery (SDC) | payer MEDICARE, OTHER ==
[2018-04-27 11:55] VITALS: BMI 21.2
--- NOTE | 2018-05-04 21:41 | HP ---
DATE OF EXAM: 05/04/2018 REASON FOR ADMISSION: Left heart cath, possible angioplasty. BRIEF CLINICAL HISTORY: A 77-year-old male with past medical history significant for end-stage renal disease on dialysis, secondary to diabetes, as well as hypertension, history of diabetes, many years history of hypertension, history of prostate CA status post radiation, who was admitted initially 04/12/2018, with worsening of congestion and after dialysis still feels congestion. The patient underwent noninvasive workup and a stress test that was read as abnormal. The patient was offered cardiac catheterization at that time, but the patient and decided to go home and discharge. Later on, the patient change his mind and wanted to CAT scan and catheterization, so is scheduled for left heart cath, possible angioplasty. The patient lives in [facility] (but the works in [place] and he get the dialysis in [facility]). PAST MEDICAL HISTORY: Significant for end-stage renal disease on dialysis for a year and a half on Wednesday, , Wednesday, history of diabetes, hypertension, according to the patient diabetes and hypertension ruins the kidney, history of prostate CA status post radiation. PAST SURGICAL HISTORY: Significant for AV fistula for dialysis. CURRENT MEDICATION: The patient at home was taking B complex, Revatio 20 mg p.o. t.i.d., Coreg 25 mg p.o. t.i.d., atorvastatin 20 mg daily, aspirin, Losartan, insulin, Sensipar, cephalexin, terazosin, clonidine patch, and torsemide. RECENT CARDIAC WORKUP: As follows; the patient had a stress test on 04/15/2018, that shows abnormal SPECT myocardial perfusion study. There is a discrete abnormality, moderate LV dysfunction, diffuse hypokinesis. When comparison is made from 09/24/2016, these changes appear new. The patient underwent echocardiography also dated 04/14/2018, that revealed biatrial enlargement, moderate concentric LVH, normal LV systolic function, severe tricuspid regurgitation, moderate mitral regurgitation, mild PI, severe pulmonary hypertension, RV systolic pressure recorded 79 mmHg. REVIEW OF SYSTEMS: As per HPI. PHYSICAL EXAMINATION VITAL SIGNS: Height of the patient 5 feet 8 inches, weight of the patient 140 pounds, body mass index 21.3 kg/M2. Rest of the vitals; temperature afebrile, heart rate 80, blood pressure 130/80. HEENT: PERRLA. Extraocular muscles intact. NECK: Supple. No carotid bruit or thyromegaly. CHEST: Clear to auscultation. HEART: S1 and S2 regular. ABDOMEN: Soft. EXTREMITIES: Clubbing and cyanosis negative. LABORATORY DATA: Blood workup pending. IMPRESSION: A 77-year-old male with past medical history of diabetes, hyperlipidemia, pulmonary hypertension, mitral regurgitation, tricuspid regurgitation, abnormal stress test, end-stage renal disease on dialysis, admitted for left heart catheterization, possible angioplasty. We will load with aspirin, Plavix. Risks, benefits, and alternatives were discussed with the patient, the patient and his agree with. We will do the left and right heart catheterization. Further recommendation will be made after cardiac catheterization. We will follow with you. Thank you Dr. Oconnell/Dr. Strickland for providing us the opportunity in taking care of patient, Kevin Humphrey. Philip Lawson MD
[2018-05-05] MEDS ORDERED: Nitroglycerin 50mg in D5W 0 MG/0 ML BOTTLE IV ONE (06:51)
[2018-05-05] MEDS ORDERED: Iohexol 350mgl/ml 50 ML ONE (06:51)
[2018-05-05] MEDS ORDERED: Iodixanol 320 MG/ML 100 ML BOTTLE IV ONE (06:51)
[2018-05-05] MEDS ORDERED: Iodixanol 320 MG/ML 200 ML BOTTLE IV ONE (06:51)
[2018-05-05] MEDS ORDERED: Lidocaine PF 2% (5 ml) Inj (For Cardiac Arrhy) ONE (06:52)
[2018-05-05] MEDS ORDERED: Verapamil 0 ML ONE (06:52)
[2018-05-05] MEDS ORDERED: Phenylephrine 10 mg/ml Inj ONE (06:53)
[2018-05-05 07:13] LABS: BASO # 0.02 K/mm3 (0.0-2.0); BASO % 0.3 % (0.0-3.0); EOS # 1.3 (0.0-0.7); HEMOGLOBIN 10.9 g/dL (14.0-18.0); LYMPH # 1.2 (1.2-3.4); LYMPH % 15.8 % (22.0-35.0); MEAN CELL VOLUME 91.9 fl (80.0-105.0); MEAN CORPUSCULAR HEMOGLOBIN 27.5 pg (25.0-35.0); MEAN CORPUSCULAR HGB CONC 29.9 g/dl (31.0-37.0); MEAN PLATELET VOLUME 10.7 fl (7.0-11.0); RBC 3.96 10^6/uL (3.5-6.1); RED CELL DISTRIBUTION WIDTH 14.9 % (11.5-14.5); WHITE BLOOD COUNT 7.9 10^3/uL (4.5-11.0)
[2018-05-05 07:24] LABS: INR 1.05; PARTIAL THROMBOPLASTIN TIME 33.8 Seconds (26.9-38.3); PROTHROMBIN TIME 11.9 SECONDS (9.4-12.5)
[2018-05-05 07:38] LABS: CALCIUM 8.4 mg/dL (8.4-10.5)
[2018-05-05] MEDS ORDERED: Midazolam 2 MG/2 ML VIAL ONE (07:38)
[2018-05-05 07:41] VITALS: O2SAT 99
[2018-05-05] MEDS ORDERED: Eptifibatide 20 mg/10mL Inj IVP ONE (08:14)
[2018-05-05] MEDS ORDERED: Sodium Chloride 0.9% 1,000 ML IV SCH (09:15)
--- NOTE | 2018-05-05 09:42 | CPOSTOP ---
DATE: 05/05/2018 PHYSICIAN: Philip Lawson MD [employer] PROFESSOR: YSABEL Pritchett TYPE OF ANESTHESIA: Moderate conscious sedation, total 2 mg of Versed and 50 of fentanyl given. PRE-PROCEDURE DIAGNOSES: Unstable angina, end-stage renal disease, on dialysis, pulmonary hypertension, abnormal stress test. PROCEDURES PERFORMED: 1. Left heart catheterization. 2. Right heart catheterization. 3. Stenting of right coronary artery with drug-eluting stent. FINDINGS: 1. [id number] pulmonary hypertension. 2. Nonischemic cardiomyopathy as well as ischemic cardiomyopathy. 3. Single-vessel critical RCA disease, moderate diagonal 1 and ramus intermedius disease. FINAL DIAGNOSES: 1. Nonischemic cardiomyopathy. 2. Mild pulmonary hypertension, right coronary artery disease. POST PROCEDURE CONDITION: The patient's condition is stable. VASCULAR ACCESS SITE: Right femoral artery for left heart cath and right femoral vein for right heart catheterization. CLOSURE DEVICE: Mynx for right arterial and femoral access. TOTAL RADIATION DOSE: 91919.9 milligray unit. TOTAL FLUOROSCOPY TIME: 8.9 minutes. Philip Lawson MD
[2018-05-05] MEDS ORDERED: IRON PO SCH (10:00)
[2018-05-05] MEDS ORDERED: [UNRECOGNIZED DRUG - REMARK] PO SCH (10:00)
[2018-05-05] MEDS ORDERED: CINACALCET 60 MG PO SCH (10:00)
[2018-05-05] MEDS ORDERED: FOLIC ACID PO SCH (10:00)
[2018-05-05] MEDS ORDERED: MULTIVITAMIN PO SCH (10:00)
[2018-05-05] MEDS ORDERED: Non Formulary Medication (Sevelamer Carbonate [Renvela] 800 MG) PO SCH (10:00)
[2018-05-05] MEDS: TERAZOSIN PO SCH ×2 (10:05→18:11)
[2018-05-05] MEDS: Insulin Lispro 1 UNITS/0.01 ML SC SCH ×2 (11:16→18:10)
[2018-05-05] MEDS ORDERED: INSULIN ASPART RECOMBINANT 5 UNIT SQ SCH (11:30)
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
[2018-05-05 14:19] LABS: BASO # 0.01 K/mm3 (0.0-2.0); BASO % 0.1 % (0.0-3.0); EOS # 1.1 (0.0-0.7); EOS % 13.3 % (1.5-5.0); HEMOGLOBIN 9.8 g/dL (14.0-18.0); LYMPH # 1.1 (1.2-3.4); LYMPH % 14.2 % (22.0-35.0); MEAN CELL VOLUME 91.3 fl (80.0-105.0); MEAN CORPUSCULAR HEMOGLOBIN 27.6 pg (25.0-35.0); MEAN CORPUSCULAR HGB CONC 30.2 g/dl (31.0-37.0); MEAN PLATELET VOLUME 9.9 fl (7.0-11.0); MONO # 0.9 (0.1-0.6); MONO % 11.7 % (1.0-6.0); RBC 3.55 10^6/uL (3.5-6.1); RED CELL DISTRIBUTION WIDTH 14.9 % (11.5-14.5)
[2018-05-05 14:46] VITALS: RESP 20
[2018-05-05 15:57] LABS: CALCIUM 7.7 mg/dL (8.4-10.5)
[2018-05-05] MEDS ORDERED: Doxercalciferol 4 mcg/2 ml Inj IVP ONE (16:00)
--- NOTE | 2018-05-05 17:12 | CARD ---
APPROVED REPORT Date of service: 05/05/2018 EKG Measurement Heart [id number] <Conclusion> Sinus rhythm with frequent premature ventricular complexes Possible Left atrial enlargement T wave abnormality, consider lateral ischemia Prolonged QT Abnormal ECG
[2018-05-05 18:09] VITALS: TEMP 98
--- NOTE | 2018-05-05 19:11 | CARD ---
APPROVED REPORT Date of service: 05/05/2018 Procedure(s) performed: Complete Heart Catheterization PTCA with Stenting of Mid RCA with TASHA HISTORY The patient is a 77 year-old male with a history of : most recent EF: 32%. (EF Method: RADIONUCLIDE), renal failure with dialysis, diabetes mellitus with insulin treatment , tobacco history() : The patient is a former smoker , hypertension , dyslipidemia , admitted with Chest pain and had an abnormal stress test and decreased LV Fx. Initially family refused cath/ PTCA , then agreed for cath and re admitted as out pt for Cariac cath. INDICATION The indication(s) include : positive stress test, chest pain, dyspnea. CASE TECHNIQUE The patient was brought electively to the Cardiac Catheterization Laboratory in a fasting state and was prepped and draped in a sterile manner. The right femoral groin was infiltrated with 2% Lidocaine subcutaneous anesthesia. A 6 Fr x 11 cm Yolis sheath was inserted into the right femoral artery without difficulty. Coronary angiography was performed using coronary diagnostic catheters. The left coronary system was accessed and visualized with a Diagnostic , 6F JL4 CATH DXT 100 CM catheter. The right coronary system was accessed and visualized with a Diagnostic ,6F JR 4 CATH DXT 100 CM catheter. The left ventricle was accessed and visualized with a 6F PIGTAIL 145 CATH DXT 110 CM catheter. Left ventricular/Aortic Valve gradient assessed on pullback. Left ventriculogram was performed in SOLER projection. Closure device was deployed with a 6 Fr / 7 Fr MynxGrip without any complications. The patient tolerated the procedure well and there were no complications associated with the procedure. Two Mynx applied for Artery and vein. Vessel Analysis The patient's coronary anatomy is right dominant. The left main coronary artery is a large size vessel without significant stenosis. The left main trifurcates to the left anterior descending, circumflex, and ramus. The left anterior descending artery is a medium size vessel with diffuse calcification noted throughout this vessel and without significant stenosis. The first diagonal branch is a medium size vessel with diffuse calcification noted throughout this vessel and without significant stenosis. The circumflex artery is a medium size vessel with diffuse calcification noted throughout this vessel and without significant stenosis. The first obtuse marginal branch is a medium size vessel with diffuse calcification noted throughout this vessel and with significant stenosis. There is a 70-80% stenosis in the distal segment. followed by aneurysm. The second obtuse marginal branch is a medium size vessel with diffuse calcification noted throughout this vessel and without significant stenosis. The ramus intermedius artery is a medium size vessel with diffuse calcification noted throughout this vessel and with significant stenosis. divides into upper and lower Div. There is a 70% stenosis in the mid segment. Upper division, followed by aneurysm The right coronary artery is a medium size vessel with diffuse calcification noted throughout this vessel and with significant stenosis. There is a 80-90% stenosis in the mid segment. The right posterior descending artery is a medium size vessel with diffuse calcification noted throughout this vessel and without significant stenosis. The right posterolateral branch is a small size vessel with diffuse calcification noted throughout this vessel and without significant stenosis. Left Ventricle The left ventricle is enlarged in size with moderately decreased contractility. Non-Ischemic and Ischemic cardiomyopathy. The left ventricular ejection fraction is estimated to be 30-35%. The left ventricular end diastolic pressure is 15-18 mmHg. There was no gradient across the aortic valve upon pullback. Right Heart Cath Findings The Right Atrial Pressure is 3-4 mmHg. The Right Ventricular Pressure is 48/8 mmHg. The Pulmonary Artery Pressure is 45/18 mmHg. with a mean of 23 The Pulmonary Catheter Wedge Pressure is 10-12 mmHg. PVR 1.8 Wood units. The cardiac output and index were assessed using thermo dilution. The Cardiac Output is 5.53 L/min. The Cardiac index is 3.15 L/min/m2. PCI Technique Lesion Anticoagulation was achieved with Heparin and integrellin bolluses. Percutaneous coronary intervention was performed on the mid right coronary artery. The lesion stenosis prior to intervention was 80-90% with ERIKA 2 flow. A 6 Fr 3DRC Guide Catheter was used to engage the ostium. A Luge 182 Interventional Guidewire was used to cross the lesion. BALLOON DILATION A Balloon catheter 2.0 x 12 mm Sprinter RX was inserted and inflated up to 12.00atm for 13seconds. STENT DEPLOYMENT A drug-eluting stent STENT RESOLUTE SAMY 2.5 X18 was inserted and inflated up to 14.00atm for 15seconds. Final angiography reveals 0 % stenosis with ERIKA 3 flow. Conclusion single vessel Critical Diz, RCA 80-90% Moderate Diz In distal Cx and Ramus Intermedius, Not suitable for PCI Decreased LV Fx, EF-30-35%, EDP-15-18 mmof Hg. RHC, RA-3-4, RV-48/8, PA-45/18 with a mean of 23 mmof Hg PCW-10-12 mmof Hg. CO-5.53, CI-3.51,PVR-1.8 langley unit Successful PTCA with ATSHA Of Mid RCA Recommendations Aggressive Medical TherapyCardiac Risk Reduction Program CC: Elio Zayas MD.
[2018-05-05 19:27] VITALS: BP 148/70; PULSE 74
[2018-05-05] MEDS ORDERED: INSULIN DETEMIR 8 UNIT SC SCH (22:00)
[2018-05-05] MEDS ORDERED: Insulin Detemir 100 units/ml Vial (Levemir) SC SCH (22:00)
--- NOTE | 2018-05-05 22:30 | CARD ---
APPROVED REPORT Date of service: 05/05/2018 EKG Measurement Heart [id number] <Conclusion> Sinus rhythm with occasional premature ventricular complexes Possible Left atrial enlargement T wave abnormality, consider anterolateral ischemia Prolonged QT Abnormal ECG
== END 2018-05-05 20:20 | disposition home or self-care (01) ==
LOC: CATH 06:04 → 2RSO 09:14 → CATH 20:20
PROVIDERS: ATTEND Internal Medicine Cardiovascular Disease
DX: I25.110 Atherosclerotic heart disease of native coronary artery with unstable angina pectoris (principal); R94.39 Abnormal result of other cardiovascular function study; I12.0 Hypertensive chronic kidney disease with stage 5 chronic kidney disease or end stage renal disease; E11.22 Type 2 diabetes mellitus with diabetic chronic kidney disease; N18.6 End stage renal disease; E78.5 Hyperlipidemia, unspecified; I25.5 Ischemic cardiomyopathy; I27.20 Pulmonary hypertension, unspecified; I08.1 Rheumatic disorders of both mitral and tricuspid valves; Z79.4 Long term (current) use of insulin; Z79.82 Long term (current) use of aspirin; Z79.899 Other long term (current) drug therapy; Z85.46 Personal history of malignant neoplasm of prostate; Z87.891 Personal history of nicotine dependence; Z88.1 Allergy status to other antibiotic agents; Z92.3 Personal history of irradiation; Z99.2 Dependence on renal dialysis
CPT/HCPCS: 36415; 80048; 82948; 85025; 85175; 85610; 85730; 86850; 86900; 93005; 93460; 99152; 99153; C1725; C1760; C1769 ×3; C1874; C1887; C1894; C2629; C9600; J1327; J1644 ×2; J2250; J2370; J3010; J7030; Q9966; Q9967